=== PATIENT | male | born 1945 | race Caucasian/White ===

== ENCOUNTER 2019-03-29 08:41 | Inpatient (IN) ==
[2019-03-29] MEDS ORDERED: PULMICORT INH ONE (09:13)
[2019-03-29] MEDS ORDERED: ALBUTEROL NEB INH ONE (09:13)
[2019-03-29] MEDS ORDERED: DUONEB (A & A) INH ONE (09:13)
--- NOTE | 2019-03-29 09:21 | PROVIDER DOCUMENTATION ---
HPI-Respiratory General - General Chief Complaint: Shortness of Breath Stated Complaint: SOB Time Seen by Provider: 03/29/19 09:03 Allergies/Adverse Reactions: Patient Allergies Allergy/AdvReac Type Severity Reaction Status Date / Time Iodine and Iodide Containing Allergy ANAPHYLAXIS Verified 03/29/19 09:18 Produc shellfish derived Allergy ANAPHYLAXIS Verified 03/29/19 09:18 Home Medications: Home Medication List Medication Instructions Recorded Confirmed Last Taken Type RX: ATORVAstatin [Lipitor] 40 mg PO QHS 04/12/17 03/29/19 06/28/17 21:00 History Morphine Sulfate [Morphine Sulfate 1 tab PO Q12H 03/29/19 03/29/19 Unknown History ER] RX: Gabapentin 1 cap PO TID 03/29/19 03/29/19 Unknown History RX: Hydrocortisone [Cortef] 2 tab PO DIRECTED 03/29/19 03/29/19 Unknown History RX: Levofloxacin 1 tab PO DAILY 03/29/19 03/29/19 Unknown History RX: Metoprolol [Lopressor] 0.5 tab PO DAILY 03/29/19 03/29/19 Unknown History RX: Prednisone 1 tab PO DIRECTED 03/29/19 03/29/19 Unknown History RX: Tamsulosin HCl 1 cap PO DAILY 03/29/19 03/29/19 Unknown History - History of Present Illness-Resp Nature of Presenting Problem: presents with incr SOB for sev weeks, chandana past 2-3 days. Has had hemoptysis for 2 weeks, has also increased for 2-3 days. THis am, even increasing his home O2 did not help. Normally has it at 2-5 liters. Denies fever. No CP, no palpitations. He has COPD, lung CA, is on chemo, scheduled for today, along with a head CT to look for brain mets. 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 denies: recent foreign travel Modifying Factors: worse with: exertion Similar Symptoms Previously?: No Recently seen or treated by another doctor?: Yes (his oncol knows about hemoptysis, but not that is worse, now has clots) Review of Systems - Adult - REVIEW OF SYSTEMS - ADULT Constitutional: reports: no symptoms reported Eyes: reports: no symptoms reported Ears, Nose, Mouth & Throat: reports: no symptoms reported Cardiovascular: reports: no symptoms reported Respiratory: reports: see HPI Gastrointestinal: reports: no symptoms reported Genitourinary: reports: no symptoms reported Musculoskeletal: reports: no symptoms reported Integumentary: reports: no symptoms reported Neurological: reports: no symptoms reported Psychiatric: reports: no symptoms reported Endocrine: reports: no symptoms reported Hematologic/Lymphatic: reports: no symptoms reported Allergic/Immunologic: reports: no symptoms reported Past History - Adult - PAST MEDICAL HISTORY-ADULT Review of Records: reports: Medications Reviewed Major Childhood Illnesses: reports: denies history Cardiovascular: reports: HTN, [place] Respiratory: reports: asthma, cancer (lung) - PRIOR SURGERIES/PROCEDURES Surgical/Procedure History: reports: cardiac stent (x5), other (cataract) - IMMUNIZATION STATUS Childhood Immunizations: See Nurse Assessment Flu Vaccine: See Nurse Assessment Physical Exam-General - PHYSICAL EXAM-ADULT Initial Vital Signs Reviewed: Yes - CONSTITUTIONAL General Appearance: alert, mild distress - EYES Eyes: PERRL/EOMI, pink conjunctivae - HEAD, EARS, NOSE, MOUTH & THROAT HENMT: normocephalic/atraumatic, moist mucous membranes, normal ENT inspection, pharynx normal - NECK Neck: full range of motion, supple - RESPIRATORY Respiratory: lungs clear, respiratory distress (mild), decreased breath sounds - CARDIOVASCULAR Cardiovascular: regular rate, rhythm, no gallop, no murmur - GASTROINTESTINAL (ABDOMEN) Abdominal Exam: non tender, soft - MUSCULOSKELETAL Back Exam: normal inspection, no CVA tenderness, no vertebral tenderness Extremity: normal range of motion, non-tender, pedal edema (4+ bilat LE edema) - SKIN Integumentary: normal color, normal turgor, warm/dry - NEUROLOGIC Neurologic: philosophy lecturer II-XII nml as tested, grossly normal, no motor/sensory deficits - PSYCHIATRIC Psych/Mental Status: normal mood/affect, normal thought content, normal thought process, oriented x 3 Progress - PLAN OF CARE/RESULTS Progress/Plan/Lab Results: Vital Signs - 8 hr 03/29/19 08:52 03/29/19 08:56 03/29/19 09:00 Temperature Pulse Rate 77 Respiratory Rate 20 Blood Pressure 173/83 O2 Sat by Pulse Oximetry 95 97 03/29/19 09:03 03/29/19 09:10 03/29/19 10:00 Temperature 97.6 F Pulse Rate 69 70 70 Respiratory Rate 20 16 14 Blood Pressure 173/83 173/83 O2 Sat by Pulse Oximetry 97 98 100 03/29/19 10:01 03/29/19 13:34 03/29/19 13:35 Temperature 98.1 F Pulse Rate 72 76 Respiratory Rate 24 20 Blood Pressure 173/86 O2 Sat by Pulse Oximetry 97 94 L 03/29/19 13:49 03/29/19 14:00 03/29/19 14:03 Temperature Pulse Rate 67 65 69 Respiratory Rate 21 16 16 Blood Pressure 168/93 163/77 O2 Sat by Pulse Oximetry 95 96 96 Laboratory Results - last 24 hr 03/29/19 03/29/19 03/29/19 09:53 09:53 09:53 WBC 21.77 H RBC 3.82 L Hgb 12.7 L Hct 40.4 L MCV 105.8 H MCH 33.2 H MCHC 31.4 L RDW Std Deviation 18.1 H Plt Count 120 L MPV 11.4 H Immature Gran % (Auto) 3.4 H Neut % (Auto) 82.2 H Lymph % (Auto) 5.6 L [place] % (Auto) 8.7 Eos % (Auto) 0.0 Baso % (Auto) 0.1 Immature Gran # (Auto) 0.74 H Neut # (Auto) 17.87 H Lymph # (Auto) 1.22 [place] # (Auto) 1.90 H Eos # (Auto) 0.01 Baso # (Auto) 0.03 PT 11.7 INR 0.80 PTT (Actin FS) 25.8 Sodium 140 Potassium 4.8 Chloride 94 L Carbon Dioxide 42 H Anion Gap 4 BUN 24 H Creatinine 1.1 Estimated GFR/1.73 m2 > 60 BUN/Creatinine Ratio 22 Glucose 123 H Calculated Osmolality 285 Calcium 9.4 Total Bilirubin 0.37 AST 56 H ALT 191 H Alkaline Phosphatase 141 H Nwg-L-Soegyvbaekt Pept Total Protein 6.3 Albumin 3.6 Globulin 2.7 Albumin/Globulin Ratio 1.3 03/29/19 09:53 WBC RBC Hgb Hct MCV MCH MCHC RDW Std Deviation Plt Count MPV Immature Gran % (Auto) Neut % (Auto) Lymph % (Auto) [place] % (Auto) Eos % (Auto) Baso % (Auto) Immature Gran # (Auto) Neut # (Auto) Lymph # (Auto) [place] # (Auto) Eos # (Auto) Baso # (Auto) PT INR PTT (Actin FS) Sodium Potassium Chloride Carbon Dioxide Anion Gap BUN Creatinine Estimated GFR/1.73 m2 BUN/Creatinine Ratio Glucose Calculated Osmolality Calcium Total Bilirubin AST ALT Alkaline Phosphatase [id number] Pept 7399 H Total Protein Albumin Globulin Albumin/Globulin Ratio Orders Category Date Time Status Take Temperature DIRECTED Care 03/29/19 12:33 Active CHEST-1 VIEW [RAD] Stat Exams 03/29/19 09:[address] HEAD W/O CONTRAST [CT] Stat Exams 03/29/19 12:47 Completed CBC WITH DIFF [HEME] Stat Lab 03/29/19 09:53 Completed COMPREHENSIVE METABOLIC PANEL [CHEM] Stat Lab 03/29/19 09:53 Completed PRO B-NATRIURETIC PEPTIDE Stat Lab 03/29/19 09:53 Completed PROTIME WITH INR [COAG] Stat Lab 03/29/19 09:53 Completed PTT [COAG] Stat Lab 03/29/19 09:53 Completed Albuterol 2.5MG/Ipratrop 0.5MG [Duoneb (A & A)] Med 03/29/19 09:13 Dis continued 3 ml INH NOW ONE Albuterol [Albuterol Neb] Med 03/29/19 09:13 Discontinued 5 mg INH NOW ONE Azithromycin [Zithromax] Med 03/29/19 12:50 Discontinued 500 mg PO NOW ONE Budesonide [Pulmicort] Med 03/29/19 09:13 Discontinued 0.5 mg INH NOW ONE CefTRIAXONE [Rocephin] 1 gm Med 03/29/19 12:50 Discontinued 0.9% Sodium Chloride Inj [Ns] 50 ml IV NOW Aerosol Treatments Routine Oth 03/29/19 09:14 Completed Aerosol Treatments Stat Oth 03/29/19 09:14 Completed EKG [EKG] Stat Ther 03/29/19 08:50 Draft Transfer/Admit Order [TRANSFER] Routine Transfer 03/29/19 14:52 Ordered Result Diagrams: 03/29/19 09:53 03/29/19 09:53 - XRAY 1 XRAY Study: Chest Impression: Abnormal (EXAM: CHEST-1 VIEW HISTORY: SOB TECHNIQUE: Single view COMPARISON: 07-22-18 FINDINGS: The lungs are well expanded. The heart is not enlarged. No change in the right port. The vessels are mildly distended. There are no infiltrates. No effusion identified. IMPRESSION: Mild pulmonary edema. Electronically signed by Josh Kenney 03/29/2019 9:29 AM 03/29/1929 Interpreting Physician: Josh Kenney MD Dictated Date/Time: 926 cc: Dmitri Mehta MD; Ez Dave) - CONSULTS/PCP/HOSPITALIST Notification #1 *Consult/PCP/Hospitalist*: Dr Webber, oncologist in [place] Time Discussed: 12:53 (WBC last week was 10. Last Lunesta was 2 weeks, was also placed on long steroid taper) #2 Consult: Dr Ng Time Discussed: 14:05 Consult Disposition: Will see in ED Departure - Departure Date of Disposition Decision: 03/29/19 Time of Disposition Decision: 14:10 DIAGNOSIS: Hemoptysis COPD (chronic obstructive pulmonary disease) Qualifiers: COPD type: unspecified COPD Qualified Code(s): J44.9 - Chronic obstructive pulmonary disease, unspecified Leukocytosis Qualifiers: Leukocytosis type: unspecified Qualified Code(s): D72.829 - Elevated white blood cell count, unspecified Lung cancer Qualifiers: Laterality: unspecified laterality Lung location: unspecified part of lung Qualified Code(s): C34.90 - Malignant neoplasm of unspecified part of unspecified bronchus or lung Disposition: ADMITTED INPATIENT 09 Certified Medical Emergency: Emergent Condition: Good - Critical Care Note This patient required my direct & personal management of CC.: No Attestation - Physician/ DANY Attestation Patient care was provided by Advanced Practice Provider:: No The physician spent face to face time with patient:: Yes Advanced Practice Provider documentation review:: Supervising physician onsite and consulted in the evaluation and care of this patient. The physician did have a face to face encounter with the patient.
--- NOTE | 2019-03-29 09:32 | Diag Imaging Result Doc PS360 ---
EXAM: CHEST-1 VIEW HISTORY: SOB TECHNIQUE: Single view COMPARISON: 07-22-18 FINDINGS: The lungs are well expanded. The heart is not enlarged. No change in the right port. The vessels are mildly distended. There are no infiltrates. No effusion identified. IMPRESSION: Mild pulmonary edema. Electronically signed by Josh Kenney 03/29/2019 9:29 AM
[2019-03-29 10:27] LABS: BASO# 0.03 X1000 (0.0-0.2); BASO% 0.1 % (0.0-0.8); EOS# 0.01 X1000 (0.0-0.7); HEMATOCRIT 40.4 % (42.0-52.0); HEMOGLOBIN 12.7 g/dL (14.0-18.0); IMM GRAN# 0.74 X1000 (0.0-0.04); IMM GRAN% 3.4 % (0.0-0.5); LYMPH# 1.22 X1000 (1.2-3.4); LYMPH% 5.6 % (20.5-51.1); MCH 33.2 PG (27-31); MCHC 31.4 g/dL (33-37); MCV 105.8 FL (81-99); MONO% 8.7 % (1.7-9.3); MPV 11.4 FL (7.4-10.4); NEUT# 17.87 X1000 (1.4-6.5); NEUT% 82.2 % (42.2-75.2); PLT 120 X1000 (130-400); RBC 3.82 XMIL (4.7-6.1); RDW 18.1 % (11.5-14.5); WBC 21.77 X1000 (4.8-10.8)
[2019-03-29 10:32] LABS: ESTIMATED GFR > 60
[2019-03-29 10:34] LABS: AGAP 4; ALB/GLOB RATIO 1.3; ALBUMIN 3.6 g/dL (3.5-5.0); ALKALINE PHOSPHATASE 141 U/L (32-122); BUN 24 mg/dL (8-22); CALCIUM 9.4 mg/dL (8.8-10.2); CHLORIDE 94 mmol/L (98-107); COSMO 285; CREATININE 1.1 mg/dL (0.7-1.2); GLUCOSE 123 mg/dL (70-104); GOT 56 U/L (10-34); GPT 191 U/L (10-44); POTASSIUM 4.8 mmol/L (3.5-5.1); SODIUM 140 mmol/L (136-145); TCO2 42 mmol/L (25-35); TOTAL BILIRUBIN 0.37 mg/dL (0.20-1.00); TOTAL PROTEIN 6.3 g/dL (6.3-8.3)
[2019-03-29 10:37] LABS: PROTIME 11.7 Seconds (11.0-16.0)
[2019-03-29 10:38] LABS: PTT 25.8 Seconds (22.3-41.8)
--- NOTE | 2019-03-29 10:50 | ED EKG INTERP ---
This chart was entered by Emani Allred Scribe, acting as scribe for Dmitri Mehta MD. EKG Interpretation - EKG Time of EKG reading by physician:: 08:54 EKG Read and Signed by:: Dmitri Mehta EKG Interpretation (*Must complete 3 of following elements*): Abnormal Rate: 73 Rhythm: sinsu rhythm with marked sinus arrhythmia [place]: normal QRS: other (possibke left atrial enlargement) [place] Interval: normal ST Wave: normal Comments: anteroseptal infarct, age undetermined Attestation - Physician/ DANY Attestation Patient care was provided by Advanced Practice Provider:: No The physician spent face to face time with patient:: Yes Advanced Practice Provider documentation review:: Supervising physician onsite and consulted in the evaluation and care of this patient. The physician did have a face to face encounter with the patient. This chart was documented by the indicated scribe, (Emani Allred Scribe) and accurately reflects the services I performed and decisions made by me, Dmitri Mehta MD, as attested by the provider's signature.
[2019-03-29 10:51] LABS: INR 0.8
[2019-03-29] MEDS ORDERED: ZITHROMAX PO ONE (12:50)
[2019-03-29] MEDS ORDERED: ROCEPHIN 1 GM in NS 50 ML IV ONE (12:50)
--- NOTE | 2019-03-29 13:42 | Diag Imaging Result Doc PS360 ---
EXAM: CT HEAD W/O CONTRAST INDICATION: LUNG CA TECHNIQUE: This exam was performed using automated exposure control, adjustment of mA or kV according to patient size, and/or use of iterative reconstruction technique. COMPARISON: MRI dated 07/22/2018. No prior CT head is available for comparison. FINDINGS: There is patchy low attenuation in the periventricular and subcortical white matter suggesting mild to moderate microangiopathy that appears to be approximately stable as compared to the prior MRI given differences in modalities. There is no definite acute infarct given the limited sensitivity of CT versus MRI. There is no discrete intracranial mass, mass effect, or intracranial hemorrhage. There are several stable small mucus retention cysts involving the maxillary sinuses. Surrounding soft tissues and bony structures are essentially unremarkable, otherwise. IMPRESSION: Mild to moderate chronic appearing white matter changes that appear stable. No definite acute intracranial pathology by CT. Electronically signed by Yosi Cuadra 03/29/2019 1:40 PM
--- NOTE | 2019-03-29 14:04 | EKG Report ---
Test Performed on : 03/29/2019 08:54:47 AM Test Reason : SOB Blood Pressure : / mmHG Vent. Rate : 073 BPM Atrial Rate : 073 BPM P-R Int : 142 ms QRS Dur : 076 ms QT Int : 354 ms P-R-T Axes : 076 044 073 degrees QTc Int : 389 ms Sinus rhythm. with marked sinus arrhythmia. Possible Left atrial enlargement Anteroseptal infarct , age undetermined Abnormal ECG No previous ECGs available Unconfirmed Result
--- NOTE | 2019-03-29 15:59 | HISTORY AND PHYSICAL ---
PRIMARY CARE PHYSICIAN: Dr. Ez Dave in [place], [place]. He also sees Dr. Webber at [facility] for his cancer. CHIEF COMPLAINT: Worsening shortness of breath over the last 2 to 3 days with oxygen not helping and also noted some hemoptysis that began today. HISTORY OF PRESENTING ILLNESS: This is a 73-year-old male who is sitting on the side of the bed, presents to [facility] ER with increased shortness of breath that he says has been present for the past several weeks, but worse over the last 2 to 3 days. He states he has had hemoptysis. His last chemo treatment was noted 2 weeks ago, and was actually scheduled for treatment today along with a CT of the head to look for brain METS. He states his oxygen is normally 2 to 5 L, and that that was not relieving his shortness of breath. Workup in the emergency room showed a white blood cell count of 21.77, but it is noted that he has been on a prednisone taper that began on 03/17/2019. His liver enzymes were elevated with a AST of 56, ALT 191, alkaline phosphatase at 141. His chest x-ray showed some mild pulmonary edema. He is noted to have wheezing throughout entire lung lopez. He has shortness of breath that worsens with [address] of the head showed mild to moderate chronic appearing white matter changes that appeared stable. No definite acute intracranial pathology by CT. He is noted to have 3+ pitting edema to his bilateral lower extremities that he states has been present for about a week so he is being admitted to the medical unit for further evaluation and treatment. PAST MEDICAL HISTORY: COPD, lung cancer with last chemo treatment 2 weeks ago, and scheduled for another one today, but did not receive, hypertension and CA. PAST SURGICAL HISTORY: Heart stents x5 and cataracts. FAMILY HISTORY: Reviewed and noncontributory. SOCIAL HISTORY: Currently, he lives with a friend who is also his caregiver. He smokes a pack of cigarettes a day, and has done so for the past 40 years. Denies any alcohol or illicit drug use. ALLERGIES: Iodine and iodine containing products and shellfish. HOME MEDICATIONS: He takes Lipitor 40 mg p.o. at bedtime, gabapentin 300 mg p.o. t.i.d., hydrocortisone 10 mg 2 tablets in the morning and 1 tablet at bedtime. He had been on Levaquin 500 mg p.o. daily that will be held. Metoprolol 50 mg 1/2 tablet p.o. daily. Morphine extended release 15 mg 1 p.o. q.12 hours, prednisone taper that began on 03/17/2019 will be held, and tamsulosin 0.4 mg p.o. daily. LABORATORY DATA: White blood cell count of 21.77, hemoglobin 12.7, hematocrit 40.4, and platelets 120,000. PT and INR of 11.7 and 0.80. Sodium 140, potassium 4.8, chloride 94, CO2 42, BUN of 24, creatinine 1.1, glucose 123, AST of 56, ALT 191, alkaline phosphatase 141. Chest x-ray showed mild pulmonary edema. EKG showed normal sinus rhythm at 73. CT of the head showed mild to moderate chronic appearing white matter changes that appear stable. No definite acute intracranial pathology by CT. REVIEW OF SYSTEMS: He denied fever, chills, blurred vision, dizziness, or chest pain. He has had a nonproductive cough, shortness of breath, wheezing, bilateral lower extremity edema. Denied any abdominal pain, constipation, diarrhea, burning or hurting with urination. PHYSICAL EXAMINATION: GENERAL: On arrival, he had a temperature of 97.6 degrees, pulse 69, respirations 20, blood pressure 173/83 and saturating 97% on 4 L via nasal cannula. GENERAL: This is a 73-year-old male who is sitting on the side of the bed and answers questions appropriately, but minimally as he has worsening shortness of breath with 1 to 2 words. HEENT: Normocephalic, atraumatic. Normal ENT inspection. Oropharynx and nares are clear. EYES: Pupils are equal, round, and reactive to light and accommodation. Extraocular movements are intact. NECK: Normal inspection. Normal range of motion. LUNGS: Wheezing throughout entire lung lopez. Equal lung expansion. Chest wall movement noted. O2 via nasal cannula currently in use. HEART: Regular rate and rhythm. No murmurs, rubs, or gallops. He is noted to have 3+ pitting edema to bilateral lower extremities. ABDOMEN: Soft, nontender, and nondistended. Bowel sounds are present x4 quadrants. MUSCULOSKELETAL: He has 5/5 strength x4 extremities. Moves all extremities well. NEUROLOGICAL: The cranial nerves 2-12 appear grossly intact. ASSESSMENT: 1. Acute chronic obstructive pulmonary disease exacerbation. 2. Leukocytosis. 3. Elevated liver function tests. 4. Tobacco abuse. 5. Lung cancer with last treatment 2 weeks ago. PLAN: He will be admitted to the medical unit, placed on telemetry, O2 per protocol. Incentive spirometry. Healthy heart diet. Turn cough and deep breathe q.4 hours while awake. I will place on Rocephin 1 gram IV q.24, azithromycin 500 IV q.24, and placed on Solu-Medrol 80 mg IV q.8, and wean as he improves. DuoNeb q.4 hours. We are going to give him some Lasix 40 mg IV q.12. We will recheck a CBC and BMP in the morning. Discussed smoking cessation with this patient who verbalized understanding. I will place him on a nicotine patch 21 mg transdermally daily. Further orders after being seen by attending. Dictated by LIOR Schroeder for Minor Ng MD cc: LIOR Schroeder MD I agree with most components of history, physical, assessment and plan. I evaluated the patient at bedside. He is in mild distress with shortness of breath but doesn't appear to be using accessory muscles. He admits to smoking currently. Vitals detect he is afebrile. On physical exam, he has right sided port, end expiratory wheeze and bilateral pedal edema. I will admit him for COPD exacerbation, transaminits and will start him on steroids, antibiotics and bronchodilators. I will also consider ECHO. I counselled him about quiting smoking and he agreeed to it. CAITLIN
[2019-03-29] MEDS ORDERED: ZOFRAN IV PRN (16:35)
[2019-03-29] MEDS: DUONEB (A & A) INH SCH ×3 (17:03→23:40)
[2019-03-29] MEDS: CORTEF PO SCH (20:24)
[2019-03-29] MEDS: NEURONTIN PO SCH (20:24)
[2019-03-29] MEDS: SOLU-MEDROL IV SCH (20:25)
[2019-03-29] MEDS: NICODERM PATCH TD SCH (20:25)
[2019-03-29] MEDS: LASIX IV SCH (20:25)
[2019-03-29] MEDS: MS CONTIN PO SCH (20:35)
[2019-03-29] MEDS ORDERED: LIPITOR PO SCH (21:00)
[2019-03-30] MEDS: DUONEB (A & A) INH SCH ×6 (03:50→23:55)
[2019-03-30] MEDS: SOLU-MEDROL IV SCH ×3 (04:20→22:18)
[2019-03-30] MEDS: TYLENOL PO PRN ×2 (04:30→15:52)
[2019-03-30 06:53] LABS: BASO# 0.02 X1000 (0.0-0.2); BASO% 0.1 % (0.0-0.8); HEMATOCRIT 42.3 % (42.0-52.0); IMM GRAN# 0.32 X1000 (0.0-0.04); IMM GRAN% 2.2 % (0.0-0.5); LYMPH# 0.26 X1000 (1.2-3.4); LYMPH% 1.8 % (20.5-51.1); MCH 32.3 PG (27-31); MCHC 30.7 g/dL (33-37); MONO% 1.4 % (1.7-9.3); MPV 11.5 FL (7.4-10.4); NEUT# 13.74 X1000 (1.4-6.5); NEUT% 94.5 % (42.2-75.2); PLT 122 X1000 (130-400); RBC 4.03 XMIL (4.7-6.1); RDW 17.7 % (11.5-14.5); WBC 14.54 X1000 (4.8-10.8)
[2019-03-30 07:34] LABS: AGAP 9; BUN 26 mg/dL (8-22); CALCIUM 9.3 mg/dL (8.8-10.2); CHLORIDE 90 mmol/L (98-107); COSMO 293; CREATININE 1.1 mg/dL (0.7-1.2); ESTIMATED GFR > 60; GLUCOSE 187 mg/dL (70-104); POTASSIUM 4.4 mmol/L (3.5-5.1); SODIUM 142 mmol/L (136-145); TCO2 43 mmol/L (25-35)
[2019-03-30 07:38] LABS: LYMPHS 5 % (21-51); SEGS 95 % (42-75)
[2019-03-30] MEDS: CORTEF PO SCH ×2 (09:39→22:17)
[2019-03-30] MEDS: LOPRESSOR PO SCH (09:40)
[2019-03-30] MEDS: MS CONTIN PO SCH ×2 (09:40→22:17)
[2019-03-30] MEDS: FLOMAX PO SCH (09:40)
[2019-03-30] MEDS: NEURONTIN PO SCH ×3 (09:40→22:17)
[2019-03-30] MEDS: NICODERM PATCH TD SCH (09:40)
[2019-03-30] MEDS: LASIX IV SCH ×2 (09:40→22:18)
--- NOTE | 2019-03-30 14:23 | PROGRESS NOTE ---
DATE: 03/30/2019 SUBJECTIVE: This patient is feeling better, he is still complaining of shortness of breath. His liver enzymes upon admission were elevated as well as the pro BNP. He is responding really good to the treatment with Lasix, pulmonary edema at presentation as well as lower extremity edema especially on the left side. For now, we will continue with same management. I will decrease the dose of the steroids from 80 q.8 hours to 40 q.8 hours. He does have COPD and history of lung cancer. As per the patient, he already stopped smoking 2 days ago. He used to smoke at least 3/4 of a pack on a daily basis. OBJECTIVE: Vital Signs: Temperature 97.9 degrees, pulse 69, respiratory rate 20, blood pressure 144/85, and oxygen saturation 98 percent on 4 L of nasal cannula. HEENT: Head normocephalic. No trauma. PERRLA. Neck: Supple. No JVD. No masses. Central trachea. Chest: Decreased breath sounds globally with prolonged expiratory phase and inspiratory as well as expiratory wheezing. Coarse breath sounds at the bases with some crepitus. Abdomen: Soft, nontender, and nondistended. No hepatosplenomegaly. Protuberant. Extremities: Trace right lower extremity edema. 2+ left lower extremity edema. No clubbing. No cyanosis. Neurological: The patient is alert and oriented x3. No focal deficits. LABORATORY: WBC 14.5, hemoglobin 13, hematocrit 42.3, and platelets 122,000. Sodium 142, potassium 4.4, chloride 90, bicarbonate 43, BUN 26, creatinine 1.1, glucose 187, and calcium 9.3. ASSESSMENT AND PLAN: 1. Chronic obstructive pulmonary disease exacerbation. I will continue breathing treatment, steroids, antibiotics, and oxygen supplementation. He is on home O2, around 4 to 5 L. He does have a history also of lung cancer. He is still smoking, but he states that he will not do that again. He stopped smoking 2 days ago, and he used to smoke at least 3/4 of a pack a day. 2. Possible CHF with some exacerbation. I will order an echocardiogram since I do not have one. Also, [facility] and they do not have an echocardiogram either. Clinically, he has some pleural effusion, lower extremity edema, shortness of breath, and I do not see any jugular venous distention, but probably he has some diastolic dysfunction. I will wait for the results. 3. Leukocytosis likely secondary to chronic steroid use. There is a possibility of underlying bronchitis or pneumonia as well. 4. Elevated liver function tests. This is new for this patient. I called the [facility], and his LFTs have been within normal limits. Previously on our records, also his liver function has been fine. I am not quite sure if this is related to a drug reaction or hepatic congestion due to his possible CHF. I will stop the Lipitor for now since this is nephrotoxic. 5. Lung cancer with last treatment around 2 weeks ago. Aware. 6. Tobacco abuse. This patient has been highly advised against tobacco use. I will continue with daily cessation education. He is still smoking. Apparently, he stopped 2 days ago, and he used to smoke 3-1/2 packs a day. I will continue with daily cessation education. cc: Remi Xiong MD
[2019-03-30] MEDS: ROCEPHIN 1 GM in NS 50 ML IV SCH (15:01)
[2019-03-30] MEDS: ZITHROMAX 500 MG/NS 500 MG/250 ML IVPB IV SCH (15:47)
[2019-03-31] MEDS: DUONEB (A & A) INH SCH ×5 (03:15→19:40)
[2019-03-31 05:01] LABS: ALLEN TEST YES; BE 22.1 mmoll (-3.0-3.0); BLOOD TYPE ARTERIAL; METHB 0.9 % (0.0-1.5); O2(CT) 17.3 mL/dL (15.0-23.0); O2HB 91.4 % (95.0-99.0); PO2(98.6) 60 mmHg (60-100); SAMPLE BLOOD; SAO2 94.5 % (95.0-100.0); THB 13.5 g/dL (11.5-17.4); pH(98.6) 7.45 (7.35-7.45)
[2019-03-31 05:03] LABS: MODALITY CANNULA; PCO2(98.6) 73 mmHg (35-45)
[2019-03-31] MEDS: SOLU-MEDROL IV SCH ×3 (06:01→21:55)
[2019-03-31 07:31] LABS: BASO# 0.01 X1000 (0.0-0.2); HEMATOCRIT 38.2 % (42.0-52.0); IMM GRAN# 0.16 X1000 (0.0-0.04); IMM GRAN% 0.7 % (0.0-0.5); LYMPH# 0.73 X1000 (1.2-3.4); LYMPH% 3.3 % (20.5-51.1); MCHC 31.4 g/dL (33-37); MCV 101.9 FL (81-99); MONO# 0.75 X1000 (0.11-0.59); MONO% 3.4 % (1.7-9.3); MPV 11.5 FL (7.4-10.4); NEUT# 20.39 X1000 (1.4-6.5); NEUT% 92.6 % (42.2-75.2); PLT 112 X1000 (130-400); RBC 3.75 XMIL (4.7-6.1); RDW 17.6 % (11.5-14.5); WBC 22.04 X1000 (4.8-10.8)
[2019-03-31 07:57] LABS: ALB/GLOB RATIO 1.3; ALBUMIN 3.3 g/dL (3.5-5.0); CALCIUM 9.1 mg/dL (8.8-10.2); CREATININE 1.2 mg/dL (0.7-1.2); POTASSIUM 3.7 mmol/L (3.5-5.1); TOTAL BILIRUBIN 0.42 mg/dL (0.20-1.00); TOTAL PROTEIN 5.9 g/dL (6.3-8.3)
--- NOTE | 2019-03-31 08:02 | Diag Imaging Result Doc PS360 ---
CHEST-PORTABLE - 03/31/2019 INDICATION: dyspnea COMPARISON: 03/29/2019 FINDINGS: Stable right chest port. There is some minimal atelectasis at the lateral right costophrenic angle. Heart size is normal. IMPRESSION: Minimal atelectasis in the lateral right lung base. Electronically signed by Hansel Renee 03/31/2019 7:59 AM
[2019-03-31] MEDS: MS CONTIN PO SCH ×2 (08:51→21:56)
[2019-03-31] MEDS: LASIX IV SCH (08:52)
[2019-03-31 09:13] LABS: BANDS 2 % (0-1); LYMPHS 4 % (21-51); MONO 2 % (1-9); SEGS 92 % (42-75)
[2019-03-31] MEDS: NICODERM PATCH TD SCH (09:47)
[2019-03-31] MEDS: CORTEF PO SCH ×2 (09:47→21:57)
[2019-03-31] MEDS: NEURONTIN PO SCH ×3 (09:47→21:57)
[2019-03-31] MEDS: LOPRESSOR PO SCH (09:47)
[2019-03-31] MEDS: FLOMAX PO SCH (09:47)
--- NOTE | 2019-03-31 10:25 | ECHO REPORT ---
ORDER DATE: 03/30/2019 INTERPRETING PHYSICIAN: Dr. Carlos REQUESTING PHYSICIAN: Dr. Hui CLINICAL INDICATIONS: This is a 73-year-old male with CHF. M-MODE MEASUREMENTS: Right ventricle: cm. Left ventricle end diastole: 5.6 cm. Left ventricle end systole: 4.2 cm. Posterior wall: 1.1 cm. Interventricular septum: 1.0 cm. Left atrium: 4.4 cm. Aortic root: 2.9 cm. SUMMARY OF 2-DIMENSIONAL IMAGIN. The left ventricular chamber is dilated. There is significant impairment of the mid to apical anterior septal segment as well as the mid to apical interventricular septal segment. That would be consistent with a previous ischemic/infarction of the LAD territory. 2. The global ejection fraction is calculated at 45%. The study was difficult, and Optison was added to visualize endocardium. The opacification was adequate. Ejection fraction by computer tracing is calculated at 46%. 3. The aortic valve has 3 cusps. Color flow mapping is unremarkable. 4. The pulmonic valve is normal. Color flow mapping is unremarkable. 5. Tricuspid valve shows mild degree of regurgitation. 6. Pulmonary pressure is estimated at 61 mmHg. 7. Inferior vena cava was dilated. 8. The mitral valve opens normally. Color flow mapping is unremarkable 9. The pulse wave Doppler of mitral inflow shows reversal of the E and the A ratio. The ratio is 0.8. 10.Tissue Doppler of septal and lateral mitral annulus averages 5.5 cm. That would suggest impaired left ventricular relaxation. 11.The left atrium appears to be mildly enlarged. 12.There is no pericardial effusion, mass or thrombus. Clinical correlation recommended. cc: MD Remi Gee MD
--- NOTE | 2019-03-31 10:41 | Diag Imaging Result Doc PS360 ---
US ABDOMEN-COMPLETE - 03/31/2019 INDICATION: Elebated LFT COMPARISON: None FINDINGS: There are several shadowing stones in the gallbladder. Common bile duct measures 4 mm. The liver, pancreas, spleen, and both kidneys are normal. Aorta, IVC, and main portal vein are patent. Spleen size is 9 x 8.5 x 2.8 cm. IMPRESSION: Gallstones in the gallbladder. Electronically signed by Hansel Renee 03/31/2019 10:38 AM
--- NOTE | 2019-03-31 13:52 | HEMO/ONC CONSULTATION ---
DATE: 03/31/2019 REASON FOR CONSULTATION: Consultation requested by Hospitalist Service for lung cancer, patient known. HISTORY OF PRESENT ILLNESS: Mr. Santana is a 73-year-old male who is known to us as we are currently treating him for metastatic recurrent lung cancer. He has been on Gemzar therapy since April of 2018 with good response. His last treatment was on 03/01/2019. He has most recently been having issues causing us to hold his treatment. Most recently he has been having increasing weakness as well as dyspnea on exertion and a productive cough. He has also required 24-hour continuous oxygen, which he did not need previously. He did have a CT of the chest, abdomen, and pelvis with contrast on 03/09/2019, which showed him to have small airway inflammatory process which was believed to be possibly related to pneumonitis associated with his treatment. We have placed him on steroids on 2 separate occasions. One time with a Medrol dose pack and the next time with a prednisone taper. The patient also received antibiotics as an outpatient. Of note, that CT of the chest, abdomen and pelvis with contrast on 03/09/2019 showed stable disease in regards to his lung cancer. He did contacted our office on 03/29/2019 complaining of hemoptysis with dyspnea and lethargy. He was advised to go to the emergency department for evaluation immediately. In the ER he was found to be hypoxic as well as found to have elevated LFTs. He had a chest x-ray that showed mild pulmonary edema, and a head CT which was negative. He also has had bilateral lower extremity pitting edema. He has been admitted for further evaluation and treatment. PAST MEDICAL HISTORY: 1. COPD. 2. Recurrent metastatic lung cancer currently on Gemzar chemotherapy since April of 2018 with good response, last treatment was actually 4 weeks ago. 3. Hypertension. 4. AK. 5. Tobacco abuse, current. PAST SURGICAL HISTORY: 1. Cardiac stent placement x5. 2. Bilateral cataracts removal. 3. Hernia repair in the 1970s. SOCIAL HISTORY: The patient is , but he does live with his girlfriend currently. He reports stopping smoking back on 03/05/2017, but has recently restarted smoking cigarettes. He has close to a 75 pack-year history. He does drink alcohol on occasion. He denies any illicit drug use. FAMILY HISTORY: Mother at the age of 84 from a stroke. Father at the age of 44 from Hodgkin's lymphoma. REVIEW OF SYSTEMS: As per the HPI. All else is negative or noncontributory. A 12 point review of systems is completed. PHYSICAL EXAMINATION: Vital Signs: Temperature 97.9 degrees, heart rate 92, respirations 18, blood pressure 142/87, O2 saturation is 94% on 4 L nasal cannula. General: This is a male sitting up in the hospital bed with his significant other at bedside. He is in good spirits. Reports that he is feeling better than upon admission. HEENT: Head: Normocephalic and atraumatic. Eyes: Pupils are equal, round and reactive. Ears, nose, throat, neck, mouth and mucosa is normal. Cardiovascular: S1 and S2 heard. No murmurs, gallops or rubs appreciated. Respiratory: Wheezing and scattered rhonchi noted bilaterally. Coarse breath sounds. Gastrointestinal: Abdomen is soft with positive bowel sounds. Musculoskeletal: No bony abnormalities. Extremities: Pitting edema noted. Neurologic: The patient is alert and oriented. He has no focal motor deficits noted at this time. LABORATORIES AND STUDIES: White blood cells 22.04, hemoglobin 12.0, hematocrit 38.2, platelet count 112,000. Sodium 142, potassium 3.7, chloride 88, CO2 of 45, BUN 30, creatinine 1.2, glucose 199, AST 24, ALT 104, alkaline phosphatase 131, proBNP 3386. Chest x-ray for today shows some atelectasis at the lateral right lung base. ASSESSMENT AND PLAN: 1. Recurrent metastatic lung cancer. The patient has been on Gemzar chemotherapy for almost 1 year with good response. He recently had scans on 03/09/2019, which showed stable disease. He has been having increasing difficulties with dyspnea and hypoxia. First believed to be related to pneumonitis, but he is presenting more with chronic obstructive pulmonary disease exacerbation. 2. Hemoptysis. This has improved greatly. The patient is now on a regimen for chronic obstructive pulmonary disease exacerbation with improvement of the symptoms. 3. Chronic obstructive pulmonary disease exacerbation. Continue intravenous antibiotics as well as pulmonary toilet and Solu-Medrol intravenous. Continue breathing treatments. 4. Adrenal insufficiency. The patient is on hydrocortisone daily. Continue at current dosing. 5. Pain. Well managed with MS Contin and [place] for breakthrough. Continue. 6. Elevated liver enzymes. The patient's liver enzymes have been normal as an outpatient. This elevation is new. Not felt to be related to his chemotherapy. He did receive chemotherapy last time 4 weeks ago, and he has also been on the same medication for almost a year without any issues with his liver. The most recent CT of the chest, abdomen and pelvis done on 03/09/2019 showed no liver abnormalities. Continue workup per the primary team. 7. Possible congestive heart failure exacerbation. Continue workup per the primary team. Thank you for consulting us and allowing us to participate in Mr. Santana's care. Dictated by REGLA Paige for Gianni Escalante MD cc: Gianni Escalante MD
--- NOTE | 2019-03-31 14:07 | PROGRESS NOTE ---
DATE: 03/31/2019 SUBJECTIVE: The patient is feeling better. LFTs are trending down, pCO2 still high though. He is still wheezing bilaterally. We did an echocardiogram that showed a left ventricular chamber dilation, with a global ejection fraction of 45%, and a pulmonary pressure estimated at 61 mm Hg. So, probably this patient has both systolic and diastolic dysfunction, pulmonary hypertension. I will continue with Lasix for now since this patient is getting better. OBJECTIVE: Vital Signs: Temperature 97.7 degrees, pulse 80, respiratory rate 15, blood pressure 166/73, oxygen saturation 99 on 4.5 L of nasal cannula. HEENT: Head normocephalic. No trauma. PERRLA. Neck: Supple. No JVD. No masses. Central trachea. Chest: Decreased breath sounds globally with prolonged expiratory phase and inspiratory as well as expiratory wheezing. Coarse breath sounds at the bases with some crepitus. Abdomen: Soft, nontender, nondistended. No hepatosplenomegaly. Extremities: Trace right lower extremity edema and 1 to 2+ left lower extremity edema. No clubbing. No cyanosis. Neurological: The patient is alert and oriented x3. No focal deficits. LABORATORY DATA: WBC 22, hemoglobin 12, hematocrit 38.2, platelets 112,000. PCO2 73. Sodium 142, potassium 3.7, chloride 88, bicarbonate 45, BUN 30, creatinine 1.2, glucose 199, calcium 9.1, AST 24, ALT 104, alkaline phosphatase 131, albumin 3.3. ASSESSMENT AND PLAN: 1. Chronic obstructive pulmonary disease exacerbation. Continue breathing treatment, steroids, antibiotics, and oxygen supplementation. He is on home O2 around 4 to 5 L. He does have a history of lung cancer. He is still smoking, but apparently he is not willing to do it again. He stop smoking 3 days ago and he used to smoke at least 3/4 of a pack a day. 2. Congestive heart failure exacerbation. Echocardiogram showed a pulmonary arterial pressure elevated, low ejection fraction at 45%, so this likely represents a systolic and diastolic dysfunction. I will continue with Lasix, beta blockers, and probably I will put him on a little dose of IVY inhibitors in the future. 3. Leukocytosis likely secondary to steroid use, but there is also a possibility of underlying bronchitis or pneumonia as well. 4. Elevated liver function tests. This is new for the patient. [facility] and his LFTs were within normal limits before and also previously on our records his liver function has been fine. I am not sure if this is related to drug interaction or hepatic congestion due to congestive heart failure, but the are getting better. I stopped already the Lipitor since this is hepatotoxic. 5. Lung cancer with last treatment around 2 weeks ago, aware. 6. Tobacco abuse. This patient has been highly advised against tobacco use. I will continue with daily cessation education. He is still smoking at least 3/4 of a pack a day. cc: Remi Xiong MD
[2019-03-31] MEDS: ROCEPHIN 1 GM in NS 50 ML IV SCH (16:35)
[2019-03-31] MEDS: ZITHROMAX 500 MG/NS 500 MG/250 ML IVPB IV SCH ×2 (17:44→18:08)
[2019-03-31] MEDS: NORVASC PO SCH (21:57)
[2019-04-01] MEDS: DUONEB (A & A) INH SCH ×6 (03:40→20:15)
[2019-04-01] MEDS: SOLU-MEDROL IV SCH (04:02)
[2019-04-01 05:15] LABS: ALLEN TEST YES; BE 21.1 mmoll (-3.0-3.0); BLOOD TYPE ARTERIAL; HCO3-(ACT) 41.3 mmoll (20.0-26.0); METHB 1.1 % (0.0-1.5); O2(CT) 17.6 mL/dL (15.0-23.0); O2HB 94.7 % (95.0-99.0); PO2(98.6) 81 mmHg (60-100); SAMPLE BLOOD; SAO2 97.9 % (95.0-100.0); THB 13.2 g/dL (11.5-17.4); pH(98.6) 7.47 (7.35-7.45)
[2019-04-01 05:19] LABS: MODALITY CANNULA; PCO2(98.6) 67 mmHg (35-45)
[2019-04-01 06:51] LABS: BASO# 0.01 X1000 (0.0-0.2); HEMATOCRIT 38.2 % (42.0-52.0); HEMOGLOBIN 12.6 g/dL (14.0-18.0); IMM GRAN# 0.19 X1000 (0.0-0.04); IMM GRAN% 0.7 % (0.0-0.5); LYMPH# 0.69 X1000 (1.2-3.4); LYMPH% 2.7 % (20.5-51.1); MONO# 0.71 X1000 (0.11-0.59); MONO% 2.8 % (1.7-9.3); MPV 11.7 FL (7.4-10.4); NEUT# 23.76 X1000 (1.4-6.5); NEUT% 93.8 % (42.2-75.2); PLT 106 X1000 (130-400); RBC 3.82 XMIL (4.7-6.1); RDW 17.8 % (11.5-14.5); WBC 25.36 X1000 (4.8-10.8)
[2019-04-01 07:19] LABS: ALB/GLOB RATIO 1.5; ALBUMIN 3.5 g/dL (3.5-5.0); CALCIUM 9.3 mg/dL (8.8-10.2); CREATININE 1.2 mg/dL (0.7-1.2); POTASSIUM 4.8 mmol/L (3.5-5.1); TOTAL BILIRUBIN 0.49 mg/dL (0.20-1.00); TOTAL PROTEIN 5.9 g/dL (6.3-8.3)
[2019-04-01 08:33] LABS: BANDS 2 % (0-1); LYMPHS 6 % (21-51); SEGS 92 % (42-75)
[2019-04-01] MEDS: NORVASC PO SCH ×2 (09:58→21:26)
[2019-04-01] MEDS: CORTEF PO SCH ×2 (09:58→21:27)
[2019-04-01] MEDS: NEURONTIN PO SCH ×3 (09:58→21:27)
[2019-04-01] MEDS: NICODERM PATCH TD SCH (09:58)
[2019-04-01] MEDS: LOPRESSOR PO SCH (09:58)
[2019-04-01] MEDS: FLOMAX PO SCH (09:58)
[2019-04-01] MEDS: LASIX IV SCH (09:58)
[2019-04-01] MEDS: MS CONTIN PO SCH ×2 (09:59→21:26)
[2019-04-01] MEDS: ROCEPHIN 1 GM in NS 50 ML IV SCH (14:47)
[2019-04-01] MEDS: ZITHROMAX 500 MG/NS 500 MG/250 ML IVPB IV SCH (15:20)
--- NOTE | 2019-04-01 18:46 | PROGRESS NOTE ---
DATE: 04/01/2019 SUBJECTIVE: The patient seems to be feeling better. Today he has been coughing more compared with the previous days, and he has been having more phlegm coming out. His white blood cells have increased from 22 to 25, and I believe it is mostly related to the steroids, which I have decreased already. Blood sugar is also slightly elevated today above 200, but hopefully tomorrow will be better. LFTs are trending down actually. AST and alkaline phosphatase are normal. ALT is slightly elevated at 80. Kidney function remains at baseline. OBJECTIVE: Vital Signs: Temperature 97.8 degrees, pulse 79, respiratory rate 20, blood pressure 138/75, oxygen saturation 96% on 4 L of nasal cannula. HEENT: Head normocephalic ,no trauma. PERRLA. Neck: Supple. No JVD. No mass. Central trachea. Chest: Decreased breath sounds globally with prolonged expiratory phase and expiratory wheezing. Coarse breath sounds at the bases with some crepitus. Abdomen: Soft, nontender, nondistended. No hepatosplenomegaly. Extremities: With 1 to 2+ lower extremity edema. No clubbing, no cyanosis. Neurological: The patient is alert and oriented x3. No focal neurological deficits. LABORATORY: WBC 25.3, hemoglobin 12.6, hematocrit 38.2, platelets 106. His pCO2 is 67. Sodium 142, potassium 4.8, chloride 89, bicarbonate 45, BUN 33, creatinine 1.2, glucose 214. Calcium 9.3, AST 18, ALT 80, alkaline phosphatase 121. ASSESSMENT AND PLAN: 1. Chronic obstructive pulmonary disease exacerbation with probable bronchitis, I will continue breathing treatments. I will decrease the for the frequency of the steroids, and hopefully tomorrow we can switch it to p.o. He is on home oxygen, around 4 to 5 L. He does have a history of lung cancer. He was still smoking, but apparently he is not willing to do it again. He stopped smoking 4 days ago, but he used to smoke 3/4 of a pack a day. 2. Likely acute bronchitis. Continue with antibiotics. 3. Lung cancer, aware. Hematology/oncology on board. 4. Congestive heart failure exacerbation. Echocardiogram showed a an increased pulmonary arterial pressure and low ejection fraction as well at 45%, so I will continue with Lasix, beta blockers and probably we need to start this patient on IVY inhibitors in the near future. 5. Leukocytosis, likely secondary to steroid use and underlying bronchitis and/or pneumonia. 6. Elevated liver function tests. This is new for the patient, probably due to hepatic congestion. This is trending down. AST and alkaline phosphatase are normal, and the ALT is much better. Pending hepatitis panel. Liver ultrasound did not show any liver problems except for gallstones. 7. Tobacco abuse. This patient has been highly advised against tobacco use. I will continue with daily cessation education. cc: Remi Xiong MD
[2019-04-02] MEDS: DUONEB (A & A) INH SCH ×7 (03:45→23:35)
[2019-04-02 04:46] LABS: ALLEN TEST YES; BLOOD TYPE ARTERIAL; HCO3-(ACT) 41.3 mmoll (20.0-26.0); PO2(98.6) 88 mmHg (60-100); SAMPLE BLOOD; pH(98.6) 7.46 (7.35-7.45)
[2019-04-02 04:59] LABS: MODALITY CANNULA; PCO2(98.6) 69 mmHg (35-45)
[2019-04-02 06:40] LABS: BASO# 0.02 X1000 (0.0-0.2); BASO% 0.1 % (0.0-0.8); HEMATOCRIT 38.2 % (42.0-52.0); HEMOGLOBIN 12.4 g/dL (14.0-18.0); IMM GRAN# 0.31 X1000 (0.0-0.04); IMM GRAN% 1.3 % (0.0-0.5); LYMPH# 2.17 X1000 (1.2-3.4); LYMPH% 9.2 % (20.5-51.1); MCH 32.5 PG (27-31); MCHC 32.5 g/dL (33-37); MCV 100.3 FL (81-99); MONO# 1.47 X1000 (0.11-0.59); MONO% 6.2 % (1.7-9.3); MPV 10.9 FL (7.4-10.4); NEUT% 83.2 % (42.2-75.2); PLT 106 X1000 (130-400); RBC 3.81 XMIL (4.7-6.1); RDW 17.8 % (11.5-14.5); WBC 23.57 X1000 (4.8-10.8)
[2019-04-02 07:10] LABS: LYMPHS 4 % (21-51); MONO 2 % (1-9); SEGS 94 % (42-75)
[2019-04-02 07:25] LABS: ALB/GLOB RATIO 1.4; ALBUMIN 3.4 g/dL (3.5-5.0); CALCIUM 9.2 mg/dL (8.8-10.2); CREATININE 1.2 mg/dL (0.7-1.2); POTASSIUM 3.8 mmol/L (3.5-5.1); TOTAL BILIRUBIN 0.49 mg/dL (0.20-1.00); TOTAL PROTEIN 5.8 g/dL (6.3-8.3)
[2019-04-02] MEDS: LOPRESSOR PO SCH (08:31)
[2019-04-02] MEDS: NORVASC PO SCH ×2 (08:31→21:16)
[2019-04-02] MEDS: NICODERM PATCH TD SCH (08:31)
[2019-04-02] MEDS: LASIX IV SCH (08:31)
[2019-04-02] MEDS: NEURONTIN PO SCH ×3 (08:31→21:16)
[2019-04-02] MEDS: FLOMAX PO SCH (08:32)
[2019-04-02] MEDS: CORTEF PO SCH ×2 (08:32→21:15)
[2019-04-02] MEDS: MS CONTIN PO SCH ×2 (08:32→21:24)
[2019-04-02] MEDS: LASIX PO SCH (08:32)
[2019-04-02] MEDS ORDERED: SOLU-MEDROL IV SCH (09:00)
--- NOTE | 2019-04-02 13:06 | PROGRESS NOTE ---
DATE: 04/02/2019 INTERVAL HISTORY: The patient's dyspnea much improved. Saturating well on his home 4 to 5 L of oxygen. Afebrile. No complaints. No acute events overnight. REVIEW OF SYSTEMS: A 12-point review of systems negative except as per Interval History. LABORATORIES: WBC 23.7, hemoglobin 12.4, hematocrit 38.2, platelets 106. ABG with pH 7.46, pCO2 of 69, PO2 of 88 on 4 L by nasal cannula. Sodium 140, potassium 3.8, bicarbonate 44, BUN 35, creatinine 1.2, glucose 169. VITALS: Temperature maximum 98.3 degrees, pulse 76, respirations 20, blood pressure 138/93, O2 saturation 96% on 4 L by nasal cannula. PHYSICAL EXAMINATION: General: No acute distress. Vitals: As above. HEENT: Normocephalic, atraumatic. Moist mucous membranes. Neck: No cervical adenopathy. Cardiovascular: Regular rate and rhythm with no murmurs, rubs, or gallops. Pulmonary: Breath sounds decreased throughout. Faint end-expiratory wheeze noted. Abdomen: Soft, nontender, nondistended. Bowel sounds positive. Extremities: Peripheral pulses intact. No clubbing, cyanosis, 1+ lower extremity pitting edema. Neurologic: Cranial nerves grossly intact. No focal deficits identified. Psychiatric: Normal mood and affect. Awake, alert, oriented x3. Skin: No new rashes or lesions identified. ASSESSMENT AND PLAN: 1. Chronic obstructive pulmonary disease exacerbation and bronchitis. The patient improving rapidly with nebulizers and steroids. We will transition to p.o. and monitor. 2. Acute on chronic diastolic congestive heart failure. The patient with recent echocardiogram with borderline ejection fraction of 45, but also with pulmonary tension. Likely diastolic congestive heart failure. Contributing to respiratory issues as above. Has responded well to diuresis. We will transition Lasix to p.o. today and monitor. 3. Lung cancer. Hematology/Oncology following. 4. Elevated liver function tests, possibly due to hepatic congestion. She has trended down to near normal. No need for further intervention at this time. 5. Tobacco abuse. Patient strongly counseled on cessation. DISPOSITION: Transitioning steroids and diuretics to p.o. today. If he continues to do well, may be able to discharge home tomorrow.
[2019-04-02] MEDS: ROCEPHIN 1 GM in NS 50 ML IV SCH (16:16)
[2019-04-02] MEDS: ZITHROMAX 500 MG/NS 500 MG/250 ML IVPB IV SCH (17:36)
[2019-04-03] MEDS: DUONEB (A & A) INH SCH ×3 (03:51→11:14)
[2019-04-03 08:21] LABS: HEPATITIS PROFILE ACUTE SEE COMMENTS
[2019-04-03] MEDS: LASIX PO SCH (08:35)
[2019-04-03] MEDS: CORTEF PO SCH (08:35)
[2019-04-03] MEDS: NORVASC PO SCH (08:35)
[2019-04-03] MEDS: NEURONTIN PO SCH (08:35)
[2019-04-03] MEDS: LOPRESSOR PO SCH (08:35)
[2019-04-03] MEDS: FLOMAX PO SCH (08:36)
[2019-04-03] MEDS: NICODERM PATCH TD SCH (08:36)
[2019-04-03 11:45] VITALS: BP 149/75
[2019-04-03] MEDS: MS CONTIN PO SCH (12:11)
[2019-04-03 12:52] LABS: CALCIUM 8.7 mg/dL (8.8-10.2); CREATININE 1.3 mg/dL (0.7-1.2); POTASSIUM 3.6 mmol/L (3.5-5.1)
--- NOTE | 2019-04-03 16:41 | HEMO/ONC PROGRESS NOTE ---
DATE: 04/03/2019 SUBJECTIVE: Mr. Santana is lying in his hospital bed. He reports that he is ready to go home. OBJECTIVE: Vital Signs: Temperature 98.2 degrees, heart rate 67, respirations 16, blood pressure 149/75, O2 saturation 95% on 2 L nasal cannula. LAB STUDIES: No new CBC for today. PHYSICAL EXAMINATION: Cardiovascular: CV S1, S2 heard. No murmurs, gallops, rubs appreciated. Respiratory: Chest is clear. Gastrointestinal: Abdomen is nondistended. Extremities: The patient now has trace edema bilateral lower extremities. ASSESSMENT AND PLAN: 1. Recurrent metastatic non-small cell lung cancer. Patient will continue with chemotherapy once he has been discharged. We will follow up with him in the next 1 to 2 weeks. Treatment currently on hold while he is in the hospital with acute issues. 2. Chronic obstructive pulmonary disease exacerbation. Continue current management per the primary team. 3. Congestive heart failure exacerbation. Continue per the primary team. Seems to be improving. 4. Elevated liver function tests. Believed to be secondary to hepatic congestion. Again liver function tests have pretty much normalized. DISPOSITION: From our standpoint, patient can be discharged home. We will follow up with him as an outpatient once he is discharged. Dictated by REGLA Paige for Marisol Webber MD cc: Marisol Webber MD I have seen and examined the patient and agree with the above note. It reflects my history, physical exam, assessment and plan. Marisol TUCKER
--- NOTE | 2019-04-03 18:57 | DISCHARGE SUMMARY ---
ADMISSION DATE: 03/29/2019 DISCHARGE DATE: 04/03/2019 ADMISSION DIAGNOSES: 1. Acute chronic obstructive pulmonary disease exacerbation. 2. Diastolic heart failure. 3. Leukocytosis. 4. Elevated liver function tests. 5. Nicotine dependence. 6. History of lung cancer. 7. Hypertension. 8. Coronary artery disease. DISCHARGE DIAGNOSES: 1. Acute chronic obstructive pulmonary disease exacerbation. 2. Diastolic heart failure. 3. Leukocytosis. 4. Elevated liver function tests. 5. Nicotine dependence. 6. History of lung cancer. 7. Hypertension. 8. Coronary artery disease. CONSULTATIONS: Hematology/Oncology with Dr. Escalante. DIAGNOSTIC PROCEDURES AND FINDINGS: EKG 03/29/2019 sinus rhythm with PACs. Chest x-ray 03/29/[address] edema[address] Head CT 03/29/2019 mild chronic changes, nothing acute. Echocardiogram 03/30/2019 EF 45%, left ventricular chamber is dilated, significant impairment of the mid to apical anterior septal segment as well as mid to apical interventricular septal segment. Chest x- ray 03/31/2019 minimal atelectasis in the lateral right lung base. Abdominal ultrasound 03/31/2019 gallstones in the gallbladder. HOSPITAL COURSE: Mr. Santana is a 73-year-old male who presented with dyspnea x3 days prior to arrival to the ER. He normally uses 2 to 5 L of oxygen at home but this did not improve his symptoms. He does complain of chronic lower extremity edema but he did not have any fever. Workup in the ER revealed mild pulmonary edema on chest x-ray. He had leukocytosis [place]BNP [place] 7399. His last treatment with chemotherapy was two weeks prior to admission. We admitted him and diuresed him. We added breathing treatments, pulmonary toilet, and IV steroids. We did check an echocardiogram which revealed borderline low ejection fraction at 45%. We consulted Hematology/Oncology who did not have any urgent recommendations and with time and medications the patient's symptoms improved to the point where we felt that he is now stable for discharge to home. DISCHARGE MEDICATIONS: 1. Lipitor 40 mg p.o. at bedtime. 2. Neurontin 300 mg p.o. t.i.d. 3. Lopressor 25 mg daily. 4. Morphine sulfate ER one tablet every 12 hours. 5. Flomax 0.4 mg daily. 6. Cortef 20 mg as directed. 7. Nicotine patch 21 mg daily. 8. Norvasc 5 mg b.i.d. 9. Lasix 40 mg daily. 10. Levaquin 750 mg p.o. daily for seven days. DISCHARGE DIET: Heart healthy. DISCHARGE ACTIVITY: Resume activity as tolerated. DISPOSITION AND OTHER DISCHARGE INSTRUCTIONS: The patient was discharged home to self-care. He is to follow up with Dr. Escalante and his PCP, Ez Dave within the next one to two weeks, sooner if needed. He is to continue all antibiotics until completion. We have discussed with him at length the perils of smoking cigarettes, we have prescribed nicotine patch. He is to return to the ER or call 911 for worsening complaints or concerns. All questions answered. DISCHARGE TIME: Greater than 35 minutes. Dictated by LIOR Santillan for Roge Nassar MD cc: LIOR Santillan MD Thomas Montgomery Agree with above. the following is my own, face to face assessment. Patient with copd exacerbation. no pneumonia but possible bacterial bronchitis. underlying lung cancer. respiratory status now back to baseline. satting well on 4L O2 which he is on at home. still decreased air entry throughout but no further wheezing on exam. stable for discharge home to follow up with PCP and oncology. CAITLIN
== END 2019-04-03 14:17 | disposition home or self-care (01) | DRG 190 ==
LOC: SUPCPDRO → ED 08:41 → SUATTDRO 15:23 → 4N 15:23
PROVIDERS: ATTEND Internal Medicine
CPT/HCPCS: 70450; 71010; 71045; 76700; 80048; 80053; 80074; 82805; 83880; 85025; 85610; 85730; 93005; 93306; 94640; 94760; 94761; 94799; 96374; 99285; A9270; C8929; J0456; J0696; J1940; J2920; J2930; Q9957

== ENCOUNTER 2019-08-02 09:19 | Inpatient (IN) ==
[2019-08-02] MEDS ORDERED: ALBUTEROL NEB INH ONE (09:50)
[2019-08-02] MEDS ORDERED: SOLU-MEDROL IV ONE (09:50)
--- NOTE | 2019-08-02 09:52 | PROVIDER DOCUMENTATION ---
HPI-Respiratory General - General Chief Complaint: Shortness of Breath Stated Complaint: SOB Time Seen by Provider: 08/02/19 09:41 Source: patient, family Allergies/Adverse Reactions: Patient Allergies Allergy/AdvReac Type Severity Reaction Status Date / Time Iodine and Iodide Containing Allergy ANAPHYLAXIS Verified 03/29/19 09:18 Produc shellfish derived Allergy ANAPHYLAXIS Verified 03/29/19 09:18 Home Medications: Home Medication List Medication Instructions Recorded Confirmed Last Taken Type ATORVAstatin [Lipitor] 20 mg PO QHS 04/12/17 08/02/19 06/28/17 21:00 History Gabapentin 1 cap PO TID 03/29/19 08/02/19 Unknown History Hydrocortisone [Cortef] 2 tab PO DIRECTED 03/29/19 08/02/19 Unknown History Metoprolol [Lopressor] 0.5 tab PO DAILY 03/29/19 08/02/19 Unknown History Morphine Sulfate [Morphine Sulfate 1 tab PO Q12H 03/29/19 08/02/19 Unknown History ER] Tamsulosin HCl 1 cap PO DAILY 03/29/19 08/02/19 Unknown History Amlodipine [Norvasc] 5 mg PO BID #30 tab 04/03/19 Unknown Rx Furosemide [Lasix] 40 mg PO DAILY #30 tab 04/03/19 08/02/19 Unknown Rx Levofloxacin [Levaquin] 750 mg PO DAILY #7 tab 04/03/19 Unknown Rx Nicotine Patch [Nicoderm Patch] 21 mg TD DAILY patch.[id number] 04/03/19 Unknown Rx Aspirin [Aspirin EC] 81 mg PO DAILY 08/02/19 08/02/19 Unknown History Budesonide/Formoterol Fumarate 1 inh INH BID PRN 08/02/19 08/02/19 Unknown History [Symbicort 160-4.5 Mcg Inhaler] Cetirizine HCl [Zyrtec] 10 mg PO DAILY 08/02/19 08/02/19 Unknown History Dexamethasone 2 tab PO DIRECTED 08/02/19 08/02/19 Unknown History Hydrocodone/Acetaminophen 1 tab PO Q6H PRN 08/02/19 08/02/19 Unknown History [Hydrocodone-Acetamin 10-325 mg] Omeprazole 40 mg PO DAILY 08/02/19 08/02/19 Unknown History Spironolactone 25 mg PO DAILY 08/02/19 08/02/19 Unknown History - History of Present Illness-Resp Nature of Presenting Problem: 73yom presents to ED c/o cough, chest congestion, sputum production and wheezing x1 week. He denies fever/chills/N/V/hemoptysis/chest pain/back pain. Onset/Duration: reports: gradual, 1 week ago Timing: reports: still present Exposure: reports: unknown cause Cough Quality/Degree: reports: moderate, productive cough, sputum (thick white) Current Respiratory Medication Therapy: Initiated none Modifying Factors: improves with: coughing Associated Symptoms: reports: cough, wheezing Similar Symptoms Previously?: Yes (with bronchitis) Recently seen or treated by another doctor?: Yes (treated w Levaquin) Review of Systems - Adult - REVIEW OF SYSTEMS - ADULT Constitutional: reports: no symptoms reported Eyes: reports: no symptoms reported Ears, Nose, Mouth & Throat: reports: no symptoms reported Cardiovascular: reports: no symptoms reported Respiratory: reports: see HPI, cough, wheezing Gastrointestinal: reports: no symptoms reported Genitourinary: reports: no symptoms reported Musculoskeletal: reports: no symptoms reported Integumentary: reports: no symptoms reported Neurological: reports: no symptoms reported Psychiatric: reports: no symptoms reported Endocrine: reports: no symptoms reported Hematologic/Lymphatic: reports: no symptoms reported Allergic/Immunologic: reports: no symptoms reported All Other Systems: Reviewed and Negative Past History - Adult - PAST MEDICAL HISTORY-ADULT Review of Records: reports: Old Records Reviewed, Nursing Assessment Review, Medications Reviewed, Social history reviewed & non-contributory. Major Childhood Illnesses: reports: denies history Cardiovascular: reports: HTN, [facility] Respiratory: reports: asthma, cancer (lung) - PRIOR SURGERIES/PROCEDURES Surgical/Procedure History: reports: cardiac stent (x5), other (cataract) - IMMUNIZATION STATUS Childhood Immunizations: See Nurse Assessment Flu Vaccine: See Nurse Assessment - SOCIAL HISTORY Smoking: quit greater than 1 year Living Situation: family Physical Exam-General - PHYSICAL EXAM-ADULT Initial Vital Signs Reviewed: Yes - CONSTITUTIONAL General Appearance: appears well, alert, no apparent distress - EYES Eyes: PERRL/EOMI, pink conjunctivae - HEAD, EARS, NOSE, MOUTH & THROAT HENMT: normocephalic/atraumatic, moist mucous membranes, normal ENT inspection, TMs normal, pharynx normal - NECK Neck: non-tender, full range of motion, supple, normal inspection - RESPIRATORY Respiratory: chest non-tender, lungs clear, no pleuratic chest pain, no respiratory distress, no accessory muscle use, wheezing (scattered bilateral) - CARDIOVASCULAR Cardiovascular: normal peripheral pulses, regular rate, rhythm, no edema, no gallop, no JVD - GASTROINTESTINAL (ABDOMEN) Abdominal Exam: normal bowel sounds, non tender, soft, no organomegaly - LYMPHATIC Lymphatic: no adenopathy - MUSCULOSKELETAL Back Exam: normal inspection, no CVA tenderness, no vertebral tenderness Extremity: normal range of motion, non-tender, normal gait, normal inspection - SKIN Integumentary: normal color, normal turgor, warm/dry - NEUROLOGIC Neurologic: car shagger II-XII nml as tested, grossly normal, no motor/sensory deficits - PSYCHIATRIC Psych/Mental Status: normal mood/affect, normal thought content, normal thought process, oriented x 3 Progress - PLAN OF CARE/RESULTS Progress/Plan/Lab Results: Vital Signs - 8 hr 08/02/19 09:26 08/02/19 10:17 Temperature 97.7 F Pulse Rate 92 H 85 Respiratory Rate 20 28 H Blood Pressure 112/72 O2 Sat by Pulse Oximetry 95 91 L Laboratory Results - last 24 hr 08/02/19 08/02/19 08/02/19 10:03 10:03 10:03 WBC 23.82 H RBC 2.99 L Hgb 9.7 L Hct 30.2 L MCV 101.0 H MCH 32.4 H MCHC 32.1 L RDW Std Deviation 17.9 H Plt Count 113 L MPV 11.4 H Immature Gran % (Auto) 1.3 H Neut % (Auto) 84.9 H Lymph % (Auto) 5.7 L Gulf % (Auto) 7.6 Eos % (Auto) 0.2 Baso % (Auto) 0.3 Immature Gran # (Auto) 0.31 H Neut # (Auto) 20.22 H Lymph # (Auto) 1.36 Gulf # (Auto) 1.80 H Eos # (Auto) 0.05 Baso # (Auto) 0.08 Segmented Neutrophils 81 H Band Neutrophils 9 H Lymphocytes 5 L Monocytes 4 Myelocytes 1.0 Sodium 144 Potassium 3.6 Chloride 105 Carbon Dioxide 25 Anion Gap 14 BUN 23 H Creatinine 1.4 H Estimated GFR/1.73 m2 50 BUN/Creatinine Ratio 16 Glucose 121 H Calculated Osmolality 292 Calcium 8.3 L Total Bilirubin 0.79 AST 17 ALT 11 Alkaline Phosphatase 115 Troponin T Paj-Y-Iorgbliwgfs Pept 3983 H Total Protein 5.1 L Albumin 3.0 L Globulin 2.1 Albumin/Globulin Ratio 1.4 Plasma Lactate 08/02/19 08/02/19 10:03 10:03 WBC RBC Hgb Hct MCV MCH MCHC RDW Std Deviation Plt Count MPV Immature Gran % (Auto) Neut % (Auto) Lymph % (Auto) Gulf % (Auto) Eos % (Auto) Baso % (Auto) Immature Gran # (Auto) Neut # (Auto) Lymph # (Auto) Gulf # (Auto) Eos # (Auto) Baso # (Auto) Segmented Neutrophils Band Neutrophils Lymphocytes Monocytes Myelocytes Sodium Potassium Chloride Carbon Dioxide Anion Gap BUN Creatinine Estimated GFR/1.73 m2 BUN/Creatinine Ratio Glucose Calculated Osmolality Calcium Total Bilirubin AST ALT Alkaline Phosphatase Troponin T < 0.010 [id number] Pept Total Protein Albumin Globulin Albumin/Globulin Ratio Plasma Lactate 1.6 Orders Category Date Time Status IV [Saline Loc] NOW Care 08/02/19 09:41 Active CHEST-1 VIEW [RAD] Stat Exams 08/02/19 09:41 Completed BLOOD CULTURE [BLDCUL] Stat Lab 08/02/19 10:40 Received CBC WITH DIFF [HEME] Stat Lab 08/02/19 10:03 Completed COMPREHENSIVE METABOLIC PANEL [CHEM] Stat Lab 08/02/19 10:03 Completed LACTATE, PLASMA [CHEM] Stat Lab 08/02/19 10:03 Completed PRO B-NATRIURETIC PEPTIDE Stat Lab 08/02/19 10:03 Completed TROPONIN T Stat Lab 08/02/19 10:03 Completed Albuterol [Albuterol Neb] Med 08/02/19 09:50 Discontinued 2.5 mg INH NOW ONE Azithromycin 500 mg/Ns [Zithromax 500 mg/Ns] Med 08/02/19 10:59 Discontinued 500 mg in 250 ml IV NOW CefTRIAXONE [Rocephin] 1 gm Med 08/02/19 10:59 Discontinued 0.9% Sodium Chloride Inj [Ns] 50 ml IV NOW Methylprednisolone Sod Succ [Solu-Medrol] Med 08/02/19 09:50 Discontinued 125 mg IV NOW ONE Aerosol Treatments Routine Oth 08/02/19 09:51 Completed Aerosol Treatments Stat Oth 08/02/19 09:51 Completed EKG [EKG] Stat Ther 08/02/19 09:41 Draft Result Diagrams: 08/02/19 10:03 08/02/19 10:03 - REASSESSMENT Reassessment #1 Time Reassessed: 11:00 (Reviewed CXR results, added Blood Cx and Lactic witgh Abx for pneumonia.) Reassessment #2 Time Reassessed: 11:50 (Discussed results and treatment plan for admit with pt and family, they agree. Lactic result pending. Pt with elevated BNP, discussed with Dr. Dunne, will hold IV fluid boluses until discuss with Admitting service.) Reassessment #3 Time Reassessed: 12:02 (Discussed pt with Keerthi, Hospitalist LIOR; she recommends admit for pneumonia. She is aware of Lactic result and does not recommend 30ml/kg IV fluid bolus. She states she will enter admit orders. Admit to Dr. Cao, inpatient tele.) - EKG 1 Time of EKG reading by physician:: 09:40 EKG Read and Signed by:: Linda Dunne EKG Interpretation (*Must complete 3 of following elements*): Normal Rate: 85 [place]: normal QRS: normal ST Wave: normal - XRAY 1 XRAY Study: Chest Impression: See EMR Report (CHEST-1 VIEW - 08/02/2019 INDICATION: SOB COMPARISON: 07/28/2019 FINDINGS: There is a focal alveolar infiltrate in the perihilar left upper lobe. No pneumothorax or large pleural effusion. Heart size remains normal. Stable right chest port in good position. IMPRESSION: Focal infiltrate in the left upper lobe compatible with pneumonia or pneumonitis. Electronically signed by Hansel Renee 08/02/2019 10:04 AM 08/02/19 1004 I nterpreting Physician: Hansel Renee MD Dictated Date/Time: 08/02/19 0958) Departure - Departure Date of Disposition Decision: 08/02/19 Time of Disposition Decision: 12:03 DIAGNOSIS: Pneumonia Qualifiers: Pneumonia type: due to unspecified organism Laterality: unspecified laterality Lung location: unspecified part of lung Qualified Code(s): J18.9 - Pneumonia, unspecified organism Disposition: ADMITTED INPATIENT 09 Certified Medical Emergency: Emergent Condition: Stable Referrals and Follow-Ups: Ez Dave [Primary Care Provider] - - Critical Care Note This patient required my direct & personal management of CC.: No Attestation - Physician/ DANY Attestation Patient care was provided by Advanced Practice Provider:: Yes Advanced Practice Provider:: Ilene Gomez Advanced Practice Provider documentation review:: The Mid-level provider documentation, treatment plan and medical decision making was reviewed by the physician who agrees with all treatment and medical decision making by the MLP. The physician spent face to face time with patient:: No (Discussed pt with Dr. Dunne, he agrees with admit plan.) Advanced Practice Provider documentation review:: Supervising physician onsite and consulted in the evaluation and care of this patient. The physician did not have a face to face encounter with the patient.
--- NOTE | 2019-08-02 10:07 | Diag Imaging Result Doc PS360 ---
CHEST-1 VIEW - 08/02/2019 INDICATION: SOB COMPARISON: 07/28/2019 FINDINGS: There is a focal alveolar infiltrate in the perihilar left upper lobe. No pneumothorax or large pleural effusion. Heart size remains normal. Stable right chest port in good position. IMPRESSION: Focal infiltrate in the left upper lobe compatible with pneumonia or pneumonitis. Electronically signed by Hansel Renee 08/02/2019 10:04 AM
--- NOTE | 2019-08-02 10:22 | EKG Report ---
Test Performed on : 08/02/2019 09:39:27 AM Test Reason : SOB Blood Pressure : / mmHG Vent. Rate : 085 BPM Atrial Rate : 085 BPM P-R Int : 136 ms QRS Dur : 074 ms QT Int : 382 ms P-R-T Axes : 081 054 086 degrees QTc Int : 454 ms Sinus rhythm. with marked sinus arrhythmia. Septal infarct (cited on or before 29-MAR-2019) Abnormal ECG When compared with ECG of 29-MAR-2019 08:54, QT has lengthened Unconfirmed Result
[2019-08-02 10:29] LABS: BASO# 0.08 X1000 (0.0-0.2); BASO% 0.3 % (0.0-0.8); EOS# 0.05 X1000 (0.0-0.7); EOS% 0.2 % (0.0-10.0); HEMATOCRIT 30.2 % (42.0-52.0); HEMOGLOBIN 9.7 g/dL (14.0-18.0); IMM GRAN# 0.31 X1000 (0.0-0.04); IMM GRAN% 1.3 % (0.0-0.5); LYMPH# 1.36 X1000 (1.2-3.4); LYMPH% 5.7 % (20.5-51.1); MCH 32.4 PG (27-31); MCHC 32.1 g/dL (33-37); MONO% 7.6 % (1.7-9.3); MPV 11.4 FL (7.4-10.4); NEUT# 20.22 X1000 (1.4-6.5); NEUT% 84.9 % (42.2-75.2); PLT 113 X1000 (130-400); RBC 2.99 XMIL (4.7-6.1); RDW 17.9 % (11.5-14.5); WBC 23.82 X1000 (4.8-10.8)
[2019-08-02 10:40] LABS: ALB/GLOB RATIO 1.4; CALCIUM 8.3 mg/dL (8.8-10.2); CREATININE 1.4 mg/dL (0.7-1.2); POTASSIUM 3.6 mmol/L (3.5-5.1); TOTAL BILIRUBIN 0.79 mg/dL (0.20-1.00); TOTAL PROTEIN 5.1 g/dL (6.3-8.3)
[2019-08-02 10:56] LABS: BANDS 9 % (0-1); LYMPHS 5 % (21-51); MONO 4 % (1-9); SEGS 81 % (42-75)
[2019-08-02] MEDS ORDERED: ZITHROMAX 500 MG/NS 500 MG/250 ML IVPB IV ONE ×2 (10:59→14:00)
[2019-08-02] MEDS ORDERED: ROCEPHIN 1 GM in NS 50 ML IV ONE (10:59)
[2019-08-02] MEDS ORDERED: TYLENOL PO PRN (13:04)
[2019-08-02] MEDS ORDERED: NORCO-10 PO PRN (13:07)
[2019-08-02 13:36] LABS: IRON SATURATION 11 %; TIBC 162 ug/dL; TOTAL IRON 18 ug/dL (53-167); UNBOUND IRON 144 ug/dL (112-346)
[2019-08-02] MEDS: NS 1,000 ML IV SCH (14:11)
[2019-08-02 14:30] LABS: FERRITIN 2465 ng/mL (30-400)
[2019-08-02] MEDS ORDERED: ZOFRAN IV PRN (14:41)
[2019-08-02] MEDS: LOVENOX SUBQ SCH (14:57)
--- NOTE | 2019-08-02 15:26 | HISTORY AND PHYSICAL ---
PRIMARY CARE PROVIDER: Dr. Dave in [place]. ONCOLOGIST: Dr. Webber. CHIEF COMPLAINT: Severe shortness of breath, weakness, dizziness, nausea, abdominal pain, decreased appetite, fever and colored phlegm. HISTORY OF PRESENT ILLNESS: Mr. Patricio Santana is a 73-year-old, male with a medical history of lung cancer and has been receiving chemo treatment since 2016. Most recently had a chemo treatment changed about 2 weeks ago. Also, with history of COPD on home oxygen. Prescription dose is 3 L, but usually wears 4 to 5. Also a chronic pain syndrome on morphine and chronic opiate use. History of coronary disease with 5 cardiac stents. An adrenal insufficiency is now here with complaints of shortness of breath. Apparently for the last 2 weeks he has had shortness of breath, weakness, subjective fever, but has been having some chambers- colored productive cough, dizziness, nausea this morning, severe shortness of breath this morning. In the last 2 weeks also has had a decreased appetite, bilateral lower quadrant abdominal tenderness, just constant nausea. He really feels like this is from the change in his chemotherapy treatment, and so will get a consult in for Dr. Webber so they can discuss that. He also is having some anemia, but no actual signs of blood loss. No black tarry stools or emesis of coffee- ground color, and vital signs are currently stable. We will admit to the medical floor for further treatment. Imaging reveals that he does have a left upper lobe pneumonia that he will be initiated on antibiotics for. I also believe that he had actually gone to his primary care provider, Dr. Dave in [place], who prescribed him on Levaquin, but this apparently was not working because he felt worse this morning. PAST MEDICAL HISTORY: 1. Lung cancer, diagnosed 2016, treated with chemo ever since. 2. Arthritis. 3. Chronic obstructive pulmonary disease. Prescription of oxygen 3 L that he wears 4-5. 4. Hypertension. 5. Myocardial infarction with a history of coronary artery disease diagnosed in 2010 with 5 cardiac stents. 6. Adrenal insufficiency. 7. BPH. 8. Chronic pain syndrome on chronic opiate use. 9. Diastolic heart failure. SURGICAL HISTORY: 1. Bilateral cataract surgery. 2. PTCA x5 stents in 2010. 3. ERCP with stent. 4. Esophageal dilatation due to dysphagia. 5. Port placed. SOCIAL HISTORY: Denies alcohol. He used to smoke, quit around 8 or 9 months ago. Was a half a pack to a pack per day smoker for 50+ years. Denies any illicit drug use. He lives with his girl friend. Uses a walker or cane or scooter; whatever helps him get around. He wishes to be a do not resuscitate; he has a living will at home that he plans on bringing here. FAMILY HISTORY: Mother with 2 strokes. Father at age 42 with lymphoma. ALLERGIES: Shellfish and iodine. HOME MEDICATIONS: 1. Lipitor 20 mg p.o. nightly. 2. Aspirin 81 mg p.o. daily. 3. Hydrocortisone 20 mg in the morning, 10 mg at night. 4. He takes dexamethasone temporarily with each chemo treatment. 5. Chemo treatment I believe is called Taxotere. 6. Neurontin 300 mg p.o. t.i.d. 7. Rapelje 10s one tablet p.o. every 6 hours p.r.n. 8. Metoprolol succinate 25 mg p.o. daily. 9. Morphine sulfate 15 mg p.o. every 12 hours. 10. Omeprazole 40 mg p.o. daily. 11. Spironolactone 25 mg p.o. daily. 12. Symbicort 160/4.5 inhaled twice daily p.r.n. 13. Flomax 0.4 mg p.o. daily. 14. Zyrtec 10 mg p.o. daily. 15. Lasix 40 mg p.o. daily. REVIEW OF SYSTEMS: Fourteen point review of systems are complete and all were negative, except those mentioned above in the HPI. PHYSICAL EXAMINATION: VITAL SIGNS: Temperature 97.7 degrees, heart rate 85, respiratory rate 20, blood pressure 112/72, O2 saturation 95% on 3 L, 5 feet 11 inches tall, 168 pounds, BMI is 23.4. GENERAL: Mr. Patricio Santana is a 73-year-old male. He is in no acute distress, able to answer questions appropriately. HEENT: Atraumatic, normocephalic. Pupils equal, round, reactive to light. Extraocular movements intact. Mucous membranes are dry. There is a scab on the back of his scalp. NECK: Trachea midline. CARDIOVASCULAR: S1, S2. Regular rate and rhythm. No rubs, gallops, murmurs. No lower extremity edema. +2 dorsalis and radial pulses. Negative JVD or carotid bruits. PULMONARY: Clear to auscultation. Bilateral breath sounds. No accessory muscle use or work of breathing noted. Currently tolerating 3 L nasal cannula. GI: Soft, tender in bilateral lower quadrants. Positive bowel sounds x4. EXTREMITIES: Moves all extremities equally. Full range of motion. NEUROLOGIC: A and O x3. Follows commands. Sensory is intact. SKIN: Warm, dry, intact. LABORATORY DATA: White blood cells 23,000, hemoglobin 9, hematocrit 30, platelet count 113. Sodium 144, potassium 3.6, BUN 23, creatinine is 1.4, glucose 121, calcium 8.3. Iron 18, total iron binding capacity 162, saturation 11%. Bilirubin 0.79, AST 17, ALT 11. Troponin less than 0.01. ProBNP 3983. Albumin 3.0. Serum lactate 1.6. IMAGING: Chest x-ray: Focal infiltrate in the left upper lobe compatible with pneumonia or pneumonitis. EKG: Normal sinus rhythm, rate 85, QTc 454. ASSESSMENT/PLAN: 1. Left upper lobe pneumonia. Failed outpatient treatment with Levaquin. We will do Rocephin here. He is not in any respiratory distress now, but we will continue him on nebulizers for cough, deep breathe and oxygen. 2. Chronic obstructive pulmonary disease. No exacerbation. Again, we will continue with nebulizers and oxygen. 3. Lung cancer history. States he is having some issues from his last chemotherapy treatment. Apparently he changed from one treatment to Taxotere. Feels like he is having these symptoms from that, and will consult Dr. Webber. 4. Complaints of bilateral lower quadrant abdominal discomfort and had some diarrhea. He will be on a proton pump inhibitor. We will get an abdominal x-ray and check a Clostridium difficile. He has been diarrhea-free for the last day and a half. 5. Iron deficiency anemia. We will also check the stool to make sure there is no blood in that, but he states that it was dark green in color. We will start him on iron supplementation. 6. Nausea, decreased appetite, poor nutritional intake--likely all secondary to being sick, but will do nutritional consult. Antiemetics as needed. 7. Hypertension. We will continue his metoprolol. 8. Diastolic heart failure. No acute exacerbation, but we will continue the Lasix. Continued on spironolactone. 9. Benign prostatic hyperplasia. Continue tamsulosin. 10. Chronic pain. Continue morphine and Rapelje. 11. Adrenal insufficiency. We will get a cortisol level and continue on his dexamethasone 20 in the morning and 10 at night. 12. History of coronary artery disease with 5 cardiac stents. Continue statin, aspirin and Lopressor. 13. Deep vein thrombosis prophylaxis with sequential compression devices. 14. The patient states he has a living will and is a do not resuscitate level 1. Dictated by LIOR Tony for Jonas Samuel MD Addendum: Patient seen and examined by myself. Agree with LIOR note. It reflects my assessment and plan. Patient is being admitted for left upper lobe pna. Will start broad spectrum antibiotics and will provide Duoneb q4hrs scheduled. Will continue with home meds for chronic medical conditions. cc: LIOR Tony MD [facility]
--- NOTE | 2019-08-02 15:32 | Diag Imaging Result Doc PS360 ---
EXAM: ABDOMEN FLAT/UPRIGHT 08/02/2019 HISTORY: abd pain TECHNIQUE: Flat and upright abdomen COMMENT: There is an aortic iliac endograft. The bowel gas pattern is nonspecific and there is no evidence of obstruction. There are degenerative changes in the lumbar spine with scoliosis and convexity to the left. There is no evidence of organomegaly or mass. IMPRESSION: Nonspecific abdomen. Electronically signed by Sebas Byrne 08/02/2019 3:30 PM
[2019-08-02] MEDS: DUONEB (A & A) INH SCH ×3 (16:08→23:36)
[2019-08-02] MEDS: PULMICORT INH SCH (19:35)
[2019-08-02] MEDS: MUCOMYST 20% INH SCH (19:35)
[2019-08-02] MEDS: NEURONTIN PO SCH ×2 (22:32→22:34)
[2019-08-02] MEDS: CORTEF PO SCH (22:32)
[2019-08-02] MEDS: LIPITOR PO SCH (22:32)
[2019-08-02] MEDS: ICAR-C PO SCH (22:33)
[2019-08-02] MEDS: MS CONTIN PO SCH (22:33)
[2019-08-03] MEDS: DUONEB (A & A) INH SCH ×6 (03:41→23:43)
[2019-08-03 07:31] LABS: BASO# 0.02 X1000 (0.0-0.2); BASO% 0.1 % (0.0-0.8); HEMATOCRIT 29.7 % (42.0-52.0); HEMOGLOBIN 9.4 g/dL (14.0-18.0); IMM GRAN# 0.19 X1000 (0.0-0.04); IMM GRAN% 0.7 % (0.0-0.5); LYMPH# 0.64 X1000 (1.2-3.4); LYMPH% 2.3 % (20.5-51.1); MCH 32.2 PG (27-31); MCHC 31.6 g/dL (33-37); MCV 101.7 FL (81-99); MONO# 0.54 X1000 (0.11-0.59); MONO% 1.9 % (1.7-9.3); MPV 10.8 FL (7.4-10.4); NEUT# 26.82 X1000 (1.4-6.5); PLT 115 X1000 (130-400); RBC 2.92 XMIL (4.7-6.1); RDW 17.7 % (11.5-14.5); WBC 28.21 X1000 (4.8-10.8)
[2019-08-03 07:40] LABS: ALB/GLOB RATIO 0.9; ALBUMIN 2.6 g/dL (3.5-5.0); CALCIUM 8.6 mg/dL (8.8-10.2); CREATININE 1.4 mg/dL (0.7-1.2); POTASSIUM 4.1 mmol/L (3.5-5.1); TOTAL BILIRUBIN 0.28 mg/dL (0.20-1.00); TOTAL PROTEIN 5.4 g/dL (6.3-8.3)
[2019-08-03] MEDS: PULMICORT INH SCH ×2 (08:09→19:48)
[2019-08-03] MEDS: MUCOMYST 20% INH SCH ×2 (08:09→19:48)
[2019-08-03 08:46] LABS: SEGS 100 % (42-75)
[2019-08-03] MEDS ORDERED: ROCEPHIN 1 GM in NS 50 ML IV SCH (09:00)
--- NOTE | 2019-08-03 10:01 | Diag Imaging Result Doc PS360 ---
EXAM: CHEST-2 VIEWS 08/03/2019 HISTORY: Pneumonia TECHNIQUE: PA and lateral chest COMMENT: There is hyperinflation of the lungs. There is blunting of the left costophrenic angle which was not the case on the previous study of 08/02/2019. There is a somewhat more discrete opacity present in the left midlung which may be in the upper lobe. There is retraction of the hilum superiorly and to the left. There are calcifications and probable stents in the coronary arteries. There is a Port-A-Cath on the right. IMPRESSION: Improvement in left upper lobe pneumonia which is possibly related to endobronchial obstruction by mass. New left pleural effusion. Electronically signed by Sebas Byrne 08/03/2019 9:59 AM
[2019-08-03] MEDS: CORTEF PO SCH ×2 (10:32→20:29)
[2019-08-03] MEDS: ALDACTONE PO SCH (10:33)
[2019-08-03] MEDS: ASPIRIN EC PO SCH (10:33)
[2019-08-03] MEDS: ICAR-C PO SCH ×2 (10:33→20:30)
[2019-08-03] MEDS: ZYRTEC PO SCH (10:33)
[2019-08-03] MEDS: PRILOSEC PO SCH (10:33)
[2019-08-03] MEDS: LASIX PO SCH (10:33)
[2019-08-03] MEDS: TOPROL XL PO SCH (10:33)
[2019-08-03] MEDS: FLOMAX PO SCH (10:34)
[2019-08-03] MEDS: NEURONTIN PO SCH ×4 (10:36→22:31)
[2019-08-03] MEDS: NS 1,000 ML IV SCH ×2 (10:36→19:27)
[2019-08-03] MEDS: MS CONTIN PO SCH ×2 (10:42→20:28)
--- NOTE | 2019-08-03 13:05 | PROGRESS NOTE ---
DATE: 08/03/2019 SUBJECTIVE: The patient reports definitely breathing much better. Denies any fever or chills. OBJECTIVE: Vital Signs: Temperature 97.4 degrees, heart rate 71, respiratory rate 18, blood pressure 110/59, O2 saturation 100% on 4 L nasal cannula. General Examination: This is a 73-year- old male, lying in bed in no acute distress. Cardiovascular exam: S1, S2 heard. No murmurs, gallops, or rubs. Regular rate and rhythm. Respiratory exam: Minimal coarse breath sounds noted in both pulmonary bases. Patient not using any accessory muscles or having work of breathing. Abdomen: Soft, nontender to palpation. Bowel sounds present. No organomegaly. Extremities: No clubbing, cyanosis, or edema. Peripheral pulses present in both legs. Neurological exam: Patient alert and oriented x3. Moves 4 extremities. LABORATORY DATA: White cell count 28.21, hemoglobin 9.4, hematocrit 29.7, platelets 115 with creatinine 1.4. ASSESSMENT AND PLAN: 1. Left upper lobe pneumonia. The patient failed outpatient treatment with Levaquin, so the patient currently is on Rocephin. I think considering her comorbidities, I prefer to be more aggressive and change to Zyvox and cefepime. We will provide also breathing treatment as needed, as well as Mucomyst. White cell count is still high, but I think it is because of chronic steroid use. He is on Cortef, but yesterday he received huge doses of intravenous steroids; in this case, it was 125 mg of Solu-Medrol. As indicated, we will continue to monitor this patient closely. 2. Chronic obstructive pulmonary disease not in exacerbation. We will provide breathing treatment as needed only. 3. History of colon cancer. Aware. Dr. Webber from Oncology has been consulted. 4. Diarrhea/bilateral lower quadrant abdominal discomfort. Clostridium difficile colitis. Stool sample has been ordered, but has not been collected yet. We will continue to monitor. 5. Iron deficiency anemia. We will continue to monitor. 6. Hypertension. Blood pressure is under control. We will continue with home medication of Toprol. 7. Diastolic heart failure. Aware. We will continue to monitor. 8. Chronic pain. We will continue with morphine and Benjamin. 9. Benign prostatic hyperplasia. 10. Disposition: At this point, we will continue to monitor the patient closely, checking labs every single day. We will go from there. cc: Jonas Samuel MD
[2019-08-03] MEDS: MAXIPIME 1 GM in NS 50 ML IV SCH (13:43)
[2019-08-03] MEDS: ZYVOX 600 MG/D5W 600 MG/300 ML IVPB IV SCH (13:44)
[2019-08-03] MEDS: LOVENOX SUBQ SCH (13:44)
--- NOTE | 2019-08-03 14:56 | HEMO/ONC CONSULTATION ---
DATE: 08/03/2019 REQUESTING PHYSICIAN: LIOR Tony. REASON FOR CONSULTATION: Lung cancer. Patient known to you. CHIEF COMPLAINT: Productive cough/shortness of breath. HISTORY OF PRESENT ILLNESS: Mr. Santana is a very pleasant, 73-year-old, male who is well known to Dr. Marisol Webber with a history of metastatic recurrent non-small cell, squamous cell lung cancer. He recently completed his 1st cycle of Taxotere and Cyramza on 07/19/2019. After his 1st cycle, he began experiencing dizziness, hoarseness, productive yellow cough, wheezing, weight loss, as well as hallucinations. He did follow up in the clinic on 07/28/2019 and was seen by our physician teachers assistant, and at that time was given IV hydration and a chest x-ray was performed. He reports his symptoms persisted and ultimately, he followed up with his primary care physician who gave him Levaquin. He had no significant improvement in symptoms and ultimately presented to [facility] yesterday for further evaluation and workup. Once here, a chest x-ray was performed, revealing improvement in left upper lobe pneumonia which is possibly related to endobronchial obstruction by a mass with new left pleural effusion. He has been started on Rocephin per primary care. He does note significant improvement in his symptoms since admission. He does continue to have a productive yellow cough. However, his shortness of breath has significantly improved. Denies any fevers or chills. His hallucinations have also resolved. He does note [id number] back and hip pain which may possibly be new and secondary to his recent Neulasta treatment. We have been asked to evaluate. PAST MEDICAL HISTORY: 1. Metastatic recurrent non-small cell, squamous cell lung cancer, status post cycle 1 of Taxotere and Cyramza on 07/19/2019. 2. COPD, currently on home oxygen. 3. Hypertension. 4. Hyperlipidemia. 5. Arthritis. 6. BPH. 7. Adrenal insufficiency. 8. Chronic diastolic heart failure. 9. Chronic pain syndrome, on chronic opiate use. 10. History of [place] with CAD diagnosed in 2010. 11. AAA. 12. Skin cancer. He had previous radiation to the nose. PAST SURGICAL HISTORY: 1. Cardiac stents x5 in 2010. 2. Port placement. 3. Bilateral cataract surgery. 4. Esophageal dilation secondary to dysphasia. 5. ERCP with stent. 6. AAA repair. 7. Hernia repair in the . SOCIAL HISTORY: Patient is . He is a former smoker. He reports he stopped approximately 9 months ago. He smoked for approximately 50 years, 1-1/2 packs per day. No current alcohol use but does endorse that he drank socially in the past. No illicit drug use. He is a retired pathology technician from 2000. FAMILY HISTORY: Mother at age 84 secondary to stroke. Father at age 44 secondary to Hodgkin's lymphoma. He has 2 children who are healthy. ALLERGIES: Iodinated contrast and shellfish. HOME MEDICATIONS: 1. Atorvastatin 20 mg p.o. at bedtime. 2. Gabapentin 300 mg p.o. t.i.d. 3. Metoprolol 25 mg p.o. daily. 4. Morphine sulfate 15 mg p.o. q.12 hours. 5. Tamsulosin 0.4 mg 1 capsule p.o. daily. 6. Hydrocortisone 20 mg p.o. as directed. 7. Lasix 40 mg p.o. daily. 8. Aspirin 81 mg p.o. daily. 9. [place] 10 every 6 hours as needed for pain. 10. Spironolactone 25 mg p.o. daily. 11. Symbicort 1 puff inhaled b.i.d. p.r.n. 12. Esomeprazole 40 mg p.o. daily. 13. Zyrtec 10 mg p.o. daily. REVIEW OF SYSTEMS: Twelve point review of systems reviewed and negative except as mentioned above in the HPI. PHYSICAL EXAMINATION: Vital Signs: Temperature 97.1 degrees, respirations 18, pulse 77, blood pressure 116/60, O2 saturation 97% on 3 L nasal cannula. General: This is a pleasant, male in no apparent distress. Eyes: Pupils equal, round, reactive. Mouth: Oral mucosa normal. CV: Regular rate and rhythm. S1, S2. Pulmonary: Lung sounds clear throughout auscultation bilaterally, nonlabored. GI: Abdomen was soft, nontender, nondistended. Bowel sounds present in all 4 quadrants. Musculoskeletal: No bony abnormality. Skin: No petechia, ecchymosis, or rash. Neurologic: Awake, alert, and oriented to person, place, and time. No focal deficits. Normal gait. LABORATORY DATA: White blood cell count 28.21, hemoglobin 9.4, hematocrit 29.7, and platelets 115,000. Sodium 145, potassium 4.1, chloride 107, CO2 of 26, BUN 27, creatinine 1.4, glucose 202, calcium 8.6. MICROBIOLOGY: Blood cultures pending. Sputum culture pending. RADIOLOGY: Abdominal x-ray on 08/02/2019, nonspecific abdomen. Chest x-ray on 08/02/2019. Impression of improvement in left upper lobe pneumonia which is possibly related to endobronchial obstruction by mass and the left pleural effusion. ASSESSMENT AND PLAN: 1. Metastatic recurrent non-small cell, squamous cell lung cancer initially diagnosed in 2015. He has received chemotherapy since that time. Most recently, he completed his 1st cycle of Taxotere and Cyramza on 07/19/2019. Next cycle is due 08/09/2019. Given his difficulties after cycle 1, at this time, he is not interested in pursuing this particular regimen further. We will discuss further plans of care with Dr. Webber upon her return. For now, we will plan to hold any chemotherapy until acute issues have resolved. 2. Left upper lobe pneumonia. He recently failed outpatient Levaquin. He is currently on Rocephin per primary care physician. Clinically, he has shown improvement. Continue supportive measures. 3. Chronic obstructive pulmonary disease with possible mild exacerbation. Continue supplemental oxygen as well as nebulizers. Management per primary care. 4. Pain. He does note some mild back, hip, as well as abdominal pain. Back and hip pain may be musculoskeletal. He does have a history of arthritis. He did also recently receive Neulasta. He is noted to have chronic pain issues. She his symptoms persist or worsen we may consider additional imaging. Continue supportive measures. 5. Iron deficiency anemia. Hemoglobin 9.4. Iron saturation low at 11. Ferritin was quite elevated at 2465, likely inflammatory. He has been started on oral iron supplementation per primary care physician. We will monitor. 6. Hypertension. Blood pressure well controlled at 116/60. Continue present management per primary care. 7. Adrenal insufficiency. Currently on dexamethasone. Primary is following. 8. Benign prostatic hypertrophy. Continue tamsulosin and per primary care. 9. Nausea and decreased appetite with approximate 15 pound weight loss over the last 2 weeks. At this time, his nausea has resolved. Continue antiemetics as needed. Continue intravenous hydration. A nutritional consultation has been placed. The above findings represent the assessment and plan of Dr. Gianni Escalante. Further recommendations pending clinical outcomes. Thank you for allowing us to participate in the care of this pleasant patient. We will follow closely. Dictated by LIOR Pitt for Gianni Escalante MD cc: LIOR Pitt MD [facility]
[2019-08-03] MEDS: SYSTANE EYE DROPS BOTH EYES PRN ×2 (15:15→20:33)
[2019-08-03 19:56] LABS: URINE SOURCE CLEAN CATCH
[2019-08-03 19:58] LABS: BILIRUBIN URINE NEGATIVE (NEGATIVE); BLOOD URINE NEGATIVE (NEGATIVE); COLOR YELLOW; GLUCOSE URINE NEGATIVE (NEGATIVE); KETONE URINE NEGATIVE (NEGATIVE); LEUKOCYTES URINE NEGATIVE (NEGATIVE); NITRITE URINE NEGATIVE (NEGATIVE); PH URINE 5.5; PROTEIN URINE 30 mg/dL (NEGATIVE); SP GRAVITY URINE 1.019; TURBIDITY URINE CLEAR (CLEAR); UROBILINOGEN URINE NORMAL (NORMAL)
[2019-08-03 19:59] LABS: UR EPITHELIAL CELLS <10 /HPF (<10); URINE BACTERIA NEGATIVE /HPF; URINE RBC <10 /HPF (<10); URINE WBC <10 /HPF (<10)
[2019-08-03] MEDS: AMBIEN PO SCH (20:27)
[2019-08-03] MEDS: LIPITOR PO SCH (20:30)
[2019-08-04] MEDS: MAXIPIME 1 GM in NS 50 ML IV SCH ×3 (00:17→23:50)
[2019-08-04] MEDS ORDERED: TUMS EXTRA STRENGTH PO ONE (00:26)
[2019-08-04] MEDS: ZYVOX 600 MG/D5W 600 MG/300 ML IVPB IV SCH ×3 (00:48→23:52)
[2019-08-04] MEDS: DUONEB (A & A) INH SCH ×6 (03:12→23:11)
[2019-08-04] MEDS: NS 1,000 ML IV SCH ×4 (03:43→18:41)
[2019-08-04] MEDS: LASIX PO SCH (08:16)
[2019-08-04] MEDS: TOPROL XL PO SCH (08:16)
[2019-08-04] MEDS: NEURONTIN PO SCH ×3 (08:16→21:24)
[2019-08-04] MEDS: PRILOSEC PO SCH (08:16)
[2019-08-04] MEDS: ZYRTEC PO SCH (08:16)
[2019-08-04] MEDS: ICAR-C PO SCH ×2 (08:16→21:24)
[2019-08-04] MEDS: CORTEF PO SCH (08:16)
[2019-08-04] MEDS: ALDACTONE PO SCH (08:16)
[2019-08-04] MEDS: ASPIRIN EC PO SCH (08:17)
[2019-08-04] MEDS: FLOMAX PO SCH (08:17)
[2019-08-04] MEDS: PULMICORT INH SCH ×2 (08:24→20:50)
[2019-08-04] MEDS: MUCOMYST 20% INH SCH ×2 (08:24→20:50)
[2019-08-04] MEDS: MS CONTIN PO SCH ×2 (09:43→21:23)
[2019-08-04] MEDS: SYSTANE EYE DROPS BOTH EYES PRN (09:44)
[2019-08-04 12:55] LABS: BASO# 0.02 X1000 (0.0-0.2); BASO% 0.1 % (0.0-0.8); EOS# 0.06 X1000 (0.0-0.7); EOS% 0.2 % (0.0-10.0); HEMATOCRIT 28.2 % (42.0-52.0); HEMOGLOBIN 8.8 g/dL (14.0-18.0); IMM GRAN# 0.29 X1000 (0.0-0.04); IMM GRAN% 0.9 % (0.0-0.5); LYMPH# 0.89 X1000 (1.2-3.4); LYMPH% 2.8 % (20.5-51.1); MCH 32.2 PG (27-31); MCHC 31.2 g/dL (33-37); MCV 103.3 FL (81-99); MONO# 1.59 X1000 (0.11-0.59); MPV 11.1 FL (7.4-10.4); NEUT# 28.82 X1000 (1.4-6.5); PLT 125 X1000 (130-400); RBC 2.73 XMIL (4.7-6.1); RDW 17.6 % (11.5-14.5); WBC 31.67 X1000 (4.8-10.8)
[2019-08-04 13:10] LABS: BANDS 6 % (0-1); LYMPHS 4 % (21-51); SEGS 90 % (42-75)
[2019-08-04 13:24] LABS: CALCIUM 8.4 mg/dL (8.8-10.2); CREATININE 1.8 mg/dL (0.7-1.2)
[2019-08-04] MEDS: LOVENOX SUBQ SCH (13:28)
--- NOTE | 2019-08-04 15:47 | PROGRESS NOTE ---
DATE: 08/04/2019 SUBJECTIVE: The patient reports breathing better. Denies any fever or chills. Denies any shortness of breath. OBJECTIVE: Vital Signs: Temperature 98.3 degrees, heart rate 88, respiratory rate 14, blood pressure 117/47, O2 saturation 99% on room air. General Examination: This is a 73-year-old male, lying in bed, in no acute distress. Chronically ill-looking. Cardiovascular: S1, S2 heard. No murmurs, gallops, or rubs. Regular rate and rhythm. Respiratory: Coarse breath sounds noted in both pulmonary bases. Patient not using any accessory muscles or having work of breathing. Abdomen: Soft, nontender to palpation. Bowel sounds present. No organomegaly. Extremities: No clubbing, cyanosis, or edema. Peripheral pulses present in both legs. Neurological: Patient is alert and oriented x3. Moves 4 extremities. LABORATORY DATA: White cell count is 31.67, hemoglobin 8.8, hematocrit 28.2, platelets 125,000 with BMP remarkable for creatinine 1.8. ASSESSMENT AND PLAN: 1. Left upper lobe pneumonia. The patient has failed outpatient treatment with Levaquin so that is why he has been started on cefepime and Zyvox. Clinically, the patient reports feeling better. His white cell count continues to get up. He is on Cortef and also at admission he received 125 mg of Solu-Medrol. Because the white cell count continues to get higher, I think what we are going to do is to reduce the dose of Cortef that he takes at night. We will continue to monitor CBC daily. As we mentioned before, clinically this patient is feeling better. Less short of breath. 2. COPD. Patient is not on any exacerbation. We will continue to provide breathing treatments as needed. 3. History of colon cancer. Aware. Dr. Webber has been consulted. 4. Diarrhea/bilateral lower quadrant abdominal pain resolved. 5. Hypertension. Blood pressure is well controlled. We will continue with same management. 6. Iron deficiency anemia. Hemoglobin is stable. We will continue to monitor. 7. Diastolic heart failure, aware. We will continue to monitor. 8. Chronic pain. We will continue with morphine and [place]. 9. Benign prostatic hyperplasia, aware. 10. Disposition. On this patient, we will keep him over the weekend. We will continue with antibiotics, checking labs on Wednesday and depending upon how he feels, will let him go. cc: Jonas Samuel MD
--- NOTE | 2019-08-04 17:53 | HEMO/ONC PROGRESS NOTE ---
DATE: 08/04/2019 CHIEF COMPLAINT: Shortness of breath. SUBJECTIVE: Mr. Santana reports that [*] significantly improved through the night and his appetite has returned and he is [*]better. OBJECTIVE: Vital Signs: Temperature 98.3, respiration [*]98% on 4 L nasal cannula. General: Pleasant male, in no apparent distress. Accompanied by family member. HEENT: Eyes: Pupils equal, round, no jaundice noted. Mouth oral mucosa normal. Cardiovascular: Regular rate and rhythm. S1-S2. Pulmonary: Lung sounds clear to auscultation bilaterally. Nonlabored. Gastrointestinal: Abdomen is soft, nontender. Positive bowel sounds in all 4 quadrants. Musculoskeletal: [*] Neurologic: Alert, oriented person, place and time, [*]normal gait. LABORATORY DATA: No a.m. labs. No a.m. imaging. CAN DOFFER/PLAN: 1. Metastatic recurrent non-small cell squamous cell lung cancer, status post 1st cycle of Taxotere [*] 07/19/2018. Next cycle is planned for 08/09/2019. However, he has expressed to us that he is not interested in continuing with this particular treatment at this time. He is going to discuss his concerns with Dr. Webber. For now, we will monitor. 2. Left upper lobe pneumonia, currently on Zyvox and cefepime per primary care. Continue to follow. 3. Chronic obstructive pulmonary disease with possible mild exacerbation, currently on supplemental oxygen as well as nebulizers as needed. Continue antibiotics. Management per primary care. 4. Pain overall improved. Continue supportive measures. Continue current medications. 5. Iron deficiency anemia, currently on iron supplementation. Will continue to monitor. 6. Hypertension. Blood pressure well controlled. Continue current management. 7. We will sign off for the weekend to be available as needed. Will return on Wednesday. Dictated by LIOR Pitt for Marisol Webber MD cc: LIOR Pitt MD
[2019-08-04] MEDS ORDERED: CHLORASEPTIC SPRAY MT PRN (19:52)
[2019-08-04] MEDS: LIPITOR PO SCH (21:24)
[2019-08-04] MEDS: AMBIEN PO SCH (21:25)
[2019-08-05] MEDS: DUONEB (A & A) INH SCH ×6 (04:29→23:48)
[2019-08-05] MEDS: SYSTANE EYE DROPS BOTH EYES PRN (05:22)
[2019-08-05 08:04] LABS: BASO# 0.03 X1000 (0.0-0.2); BASO% 0.1 % (0.0-0.8); HEMATOCRIT 29.7 % (42.0-52.0); HEMOGLOBIN 9.1 g/dL (14.0-18.0); IMM GRAN# 0.46 X1000 (0.0-0.04); LYMPH# 1.11 X1000 (1.2-3.4); LYMPH% 4.9 % (20.5-51.1); MCHC 30.6 g/dL (33-37); MCV 104.6 FL (81-99); MONO# 1.93 X1000 (0.11-0.59); MONO% 8.5 % (1.7-9.3); MPV 11.5 FL (7.4-10.4); NEUT# 19.09 X1000 (1.4-6.5); NEUT% 84.5 % (42.2-75.2); PLT 123 X1000 (130-400); RBC 2.84 XMIL (4.7-6.1); RDW 17.7 % (11.5-14.5); WBC 22.62 X1000 (4.8-10.8)
[2019-08-05 08:15] LABS: CALCIUM 8.6 mg/dL (8.8-10.2); CREATININE 1.8 mg/dL (0.7-1.2)
[2019-08-05] MEDS: MUCOMYST 20% INH SCH ×2 (08:22→19:31)
[2019-08-05] MEDS: PULMICORT INH SCH ×2 (08:22→19:30)
[2019-08-05 08:57] LABS: LYMPHS 10 % (21-51); MONO 8 % (1-9); SEGS 80 % (42-75)
[2019-08-05] MEDS: NEURONTIN PO SCH ×3 (09:27→21:16)
[2019-08-05] MEDS: TOPROL XL PO SCH (09:27)
[2019-08-05] MEDS: FLOMAX PO SCH (09:27)
[2019-08-05] MEDS: PRILOSEC PO SCH (09:27)
[2019-08-05] MEDS: LASIX PO SCH (09:27)
[2019-08-05] MEDS: ICAR-C PO SCH ×2 (09:27→21:16)
[2019-08-05] MEDS: MS CONTIN PO SCH ×2 (09:27→21:15)
[2019-08-05] MEDS: ASPIRIN EC PO SCH (09:28)
[2019-08-05] MEDS: ZYRTEC PO SCH (09:28)
[2019-08-05] MEDS: CORTEF PO SCH (09:28)
[2019-08-05] MEDS: ALDACTONE PO SCH (09:28)
[2019-08-05] MEDS: NS 1,000 ML IV SCH (10:52)
[2019-08-05] MEDS: LOVENOX SUBQ SCH (14:44)
[2019-08-05] MEDS: ZYVOX 600 MG/D5W 600 MG/300 ML IVPB IV SCH (14:44)
[2019-08-05] MEDS: MAXIPIME 1 GM in NS 50 ML IV SCH (14:44)
--- NOTE | 2019-08-05 19:10 | PROGRESS NOTE ---
DATE: 08/05/2019 SUBJECTIVE: Patient continues to report feeling better, breathing better. Denies any fever, chills, or shortness of breath. OBJECTIVE: Vital Signs: Temperature 97.8 degrees, heart rate 101, respiratory rate 18, blood pressure 129/70, O2 saturation 98% on 4 L nasal cannula. General: This is a 73-year-old, male, lying in bed, in no acute distress. Cardiovascular: S1, S2 heard. No murmurs, gallops, or rubs. Regular rate and rhythm. Respiratory: Coarse breath sounds noted in both pulmonary bases. Patient is not using any accessory muscles or having work of breathing. Abdomen: Soft, nontender to palpation. Bowel sounds present. No organomegaly. Extremities: No clubbing, cyanosis, or edema. Peripheral pulses present in both legs. Neurological: Patient is alert and oriented x3. Moves 4 extremities. LABORATORY DATA: White cell count is 22.62, hemoglobin 9.1, hematocrit 29.7, platelets 123,000. ASSESSMENT AND PLAN: 1. Left upper lobe pneumonia. Clinically, patient is getting better. Patient is on cefepime and Zyvox. The patient is on steroids chronically and that definitely explains the elevation on white cell count. We have stopped 1 of the Cortef tablets that he takes at night, and white cell count has improved from 30,000 to 20,000. So at this point, we are going to continue with the same antibiotic management. 2. Chronic obstructive pulmonary disease. Patient is not in an exacerbation. We will provide breathing treatments as needed only. 3. History of colon cancer. Aware. The patient has been consulted. We will follow recommendations. 4. Diarrhea, bilateral lower quadrant abdominal pain. Resolved. 5. Hypertension. Blood pressure is under control. We will continue with same management. 6. Iron-deficiency anemia. Hemoglobin is stable. We will continue to monitor. 7. Diastolic heart failure. Aware. We will continue to monitor. 8. Chronic pain. Patient is on home medications. 9. Disposition. We will continue to monitor this patient over the weekend here in the hospital. If the patient is doing fine, we will check x-ray tomorrow and will discharge him if he is feeling better. cc: Jonas Samuel MD
[2019-08-05] MEDS: AMBIEN PO SCH (21:03)
[2019-08-05] MEDS: LIPITOR PO SCH (21:16)
[2019-08-06] MEDS: NS 1,000 ML IV SCH ×2 (00:23→15:21)
[2019-08-06] MEDS: DUONEB (A & A) INH SCH ×6 (03:52→23:19)
[2019-08-06 07:55] LABS: CALCIUM 7.8 mg/dL (8.8-10.2); CREATININE 1.8 mg/dL (0.7-1.2); POTASSIUM 4.6 mmol/L (3.5-5.1)
[2019-08-06 07:59] LABS: BASO# 0.04 X1000 (0.0-0.2); BASO% 0.2 % (0.0-0.8); EOS# 0.05 X1000 (0.0-0.7); EOS% 0.2 % (0.0-10.0); HEMATOCRIT 31.2 % (42.0-52.0); HEMOGLOBIN 9.4 g/dL (14.0-18.0); IMM GRAN% 3.2 % (0.0-0.5); LYMPH# 1.23 X1000 (1.2-3.4); LYMPH% 5.7 % (20.5-51.1); MCH 31.6 PG (27-31); MCHC 30.1 g/dL (33-37); MCV 105.1 FL (81-99); MONO# 2.02 X1000 (0.11-0.59); MONO% 9.4 % (1.7-9.3); MPV 11.4 FL (7.4-10.4); NEUT# 17.55 X1000 (1.4-6.5); NEUT% 81.3 % (42.2-75.2); PLT 132 X1000 (130-400); RBC 2.97 XMIL (4.7-6.1); WBC 21.59 X1000 (4.8-10.8)
[2019-08-06] MEDS: PULMICORT INH SCH ×2 (08:07→19:31)
[2019-08-06] MEDS: MUCOMYST 20% INH SCH ×2 (08:07→19:31)
[2019-08-06 09:09] LABS: ANISOCYTOSIS 1+; BANDS 2 % (0-1); LYMPHS 8 % (21-51); MONO 4 % (1-9); SEGS 86 % (42-75)
[2019-08-06] MEDS: FLOMAX PO SCH (09:59)
[2019-08-06] MEDS: MS CONTIN PO SCH ×2 (09:59→21:46)
[2019-08-06] MEDS: ZYRTEC PO SCH (09:59)
[2019-08-06] MEDS: ICAR-C PO SCH ×2 (09:59→21:46)
[2019-08-06] MEDS: ASPIRIN EC PO SCH (09:59)
[2019-08-06] MEDS: NEURONTIN PO SCH ×3 (09:59→23:04)
[2019-08-06] MEDS: ALDACTONE PO SCH (09:59)
[2019-08-06] MEDS: LASIX PO SCH (09:59)
[2019-08-06] MEDS: TOPROL XL PO SCH (09:59)
[2019-08-06] MEDS: CORTEF PO SCH (09:59)
[2019-08-06] MEDS: PRILOSEC PO SCH (10:00)
[2019-08-06] MEDS: MAXIPIME 1 GM in NS 50 ML IV SCH ×2 (10:00→21:47)
[2019-08-06] MEDS: ZYVOX 600 MG/D5W 600 MG/300 ML IVPB IV SCH ×2 (10:36→21:47)
--- NOTE | 2019-08-06 12:59 | PROGRESS NOTE ---
DATE: 08/06/2019 SUBJECTIVE: Patient reports breathing better definitely. No fever, chills, or shortness of breath. OBJECTIVE: Vital Signs: Temperature 97.4 degrees, heart rate 81, respiratory rate 18, blood pressure 129/83, O2 saturation 94% on 4 L nasal cannula. General Examination. This is a chronically ill-appearing, 73-year-old, male, lying in bed, in no acute distress. Cardiovascular Examination: S1 and S2 heard. No murmurs, gallops, or rubs. Regular rate and rhythm. Respiratory Examination: Coarse breath sounds still present in both pulmonary bases but definitely much better in comparing with admission. Patient is not using any accessory muscles or having work of breathing. Abdomen: Soft, nontender to palpation. Bowel sounds present. No organomegaly. Extremities: No clubbing, cyanosis, or edema. Peripheral pulses present in both legs. Neurological Examination: The patient is alert and oriented x3. Moves 4 extremities. Laboratory Data: White cell count 21.59, hemoglobin 9.4, hematocrit 31.2, platelets 132,000. BMP reveals creatinine 1.8. ASSESSMENT AND PLAN: 1. Left upper lobe pneumonia. We will continue with cefepime and Zyvox. The fact that he is chronically on steroids make that white cell count not really a good indicator of infection. That continues to be high. It is 20,000 right now, like he was on admission. At this point, we will continue with the same management. He is on Cortef because of his lung cancer. 2. Chronic obstructive pulmonary disease. The patient is not in any exacerbation. We will continue to monitor. 3. History of lung cancer. Hematology/oncology is following this patient. No treatment required at this time. 4. Hypertension. Blood pressure is under control. We will continue with the same management. 5. Iron-deficiency anemia. Hemoglobin is stable. Continue to monitor. 6. Diastolic heart failure. Aware. 7. Chronic pain. We will continue home medications. 8. Disposition. I think if the patient is feeling better and white cell count is similar to what it is today, I think the patient will be discharged. cc: Jonas Samuel MD
[2019-08-06] MEDS: LOVENOX SUBQ SCH (15:22)
[2019-08-06] MEDS: LIPITOR PO SCH (21:46)
[2019-08-06] MEDS: AMBIEN PO SCH (21:48)
[2019-08-07] MEDS: DUONEB (A & A) INH SCH ×6 (02:33→23:18)
[2019-08-07] MEDS: MUCOMYST 20% INH SCH ×2 (07:41→19:25)
[2019-08-07] MEDS: PULMICORT INH SCH ×2 (07:41→19:25)
[2019-08-07 08:13] LABS: BASO# 0.02 X1000 (0.0-0.2); BASO% 0.1 % (0.0-0.8); EOS# 0.13 X1000 (0.0-0.7); EOS% 0.8 % (0.0-10.0); HEMATOCRIT 31.1 % (42.0-52.0); HEMOGLOBIN 9.3 g/dL (14.0-18.0); IMM GRAN# 0.44 X1000 (0.0-0.04); IMM GRAN% 2.7 % (0.0-0.5); LYMPH# 1.44 X1000 (1.2-3.4); LYMPH% 8.9 % (20.5-51.1); MCH 31.4 PG (27-31); MCHC 29.9 g/dL (33-37); MCV 105.1 FL (81-99); MONO# 1.47 X1000 (0.11-0.59); MONO% 9.1 % (1.7-9.3); MPV 11.5 FL (7.4-10.4); NEUT# 12.61 X1000 (1.4-6.5); NEUT% 78.4 % (42.2-75.2); PLT 147 X1000 (130-400); RBC 2.96 XMIL (4.7-6.1); RDW 17.6 % (11.5-14.5); WBC 16.11 X1000 (4.8-10.8)
[2019-08-07 08:23] LABS: CALCIUM 8.1 mg/dL (8.8-10.2); CREATININE 1.9 mg/dL (0.7-1.2); POTASSIUM 4.6 mmol/L (3.5-5.1)
[2019-08-07] MEDS: NEURONTIN PO SCH ×3 (10:39→20:32)
[2019-08-07] MEDS: ASPIRIN EC PO SCH (10:39)
[2019-08-07] MEDS: ZYRTEC PO SCH (10:39)
[2019-08-07] MEDS: FLOMAX PO SCH (10:39)
[2019-08-07] MEDS: PRILOSEC PO SCH (10:39)
[2019-08-07] MEDS: CORTEF PO SCH (10:39)
[2019-08-07] MEDS: LASIX PO SCH (10:40)
[2019-08-07] MEDS: TOPROL XL PO SCH (10:40)
[2019-08-07] MEDS: ICAR-C PO SCH ×2 (10:40→20:32)
[2019-08-07] MEDS: ALDACTONE PO SCH (10:40)
[2019-08-07] MEDS: MS CONTIN PO SCH ×2 (10:40→20:36)
[2019-08-07] MEDS: ZYVOX 600 MG/D5W 600 MG/300 ML IVPB IV SCH ×2 (10:46→20:31)
[2019-08-07] MEDS: MAXIPIME 1 GM in NS 50 ML IV SCH ×2 (10:46→20:32)
--- NOTE | 2019-08-07 12:31 | PROGRESS NOTE ---
DATE: 08/07/2019 SUBJECTIVE: The patient reported last night that he has been feeling short of breath and coughing more. No fever or chills. No shortness of breath noted. OBJECTIVE: Vital Signs: Temperature 97.9 degrees, heart rate 85, respiratory rate 16, blood pressure 128/41, O2 saturation 99% on 4 L nasal cannula. General Examination: This is a chronically ill-looking, 73-year-old, male, lying in bed, in no acute distress. Cardiovascular Examination: S1 and S2 heard. No murmurs, gallops, or rubs. Regular rate and rhythm. Respiratory Examination: Coarse breath sounds still present in both pulmonary bases, the same in comparing with yesterday. Patient is not using any accessory muscles or having work of breathing. Abdomen: Soft, nontender to palpation. Bowel sounds present. No organomegaly. Extremities: No clubbing, cyanosis, or edema. Peripheral pulses present in both legs. Neurological Examination: The patient is alert and oriented x3. Moves 4 extremities. Laboratory Data: White cell count has improved from 21,000 to 16,000, with hemoglobin 9.3, hematocrit 31.1, platelets 147,000. Creatinine 1.9. ASSESSMENT AND PLAN: 1. Left upper lobe pneumonia. Patient continues to be on cefepime and Zyvox. Clinically, this patient was not getting better in the last 24 hours. White cell count has improved. He is on chronic steroids so the leukocytosis does not necessarily correlate with his clinical situation. He is on Cortef because of his lung cancer so, at this point, we will continue with the same management. I have informed the patient that he may be discharged within the next 24 to 48 hours, depending upon how he feels. 2. Chronic obstructive pulmonary disease. Patient is not in any exacerbation. We will continue to monitor this patient closely. 3. History of lung cancer. The patient was evaluated by hematology/oncology here in the hospital but no treatment required at this time. 4. Hypertension. Blood pressure is under control. We will continue with the same management. 5. Iron deficiency anemia. Hemoglobin is stable. We will continue to monitor. 6. Diastolic heart failure. We will continue home medications. 7. Chronic pain. We will continue home medications. 8. Disposition. The patient was not doing good during the last 24 hours clinically. He agreed to stay. He may be discharged within the next 24 to 48 hours. cc: Jonas Samuel MD MTDD
[2019-08-07] MEDS: LOVENOX SUBQ SCH (14:56)
--- NOTE | 2019-08-07 15:38 | Diag Imaging Result Doc PS360 ---
EXAM: US RENAL 2 (RETROPER) COMPLETE 08/07/2019 HISTORY: decreased renal function TECHNIQUE: Renal ultrasound COMMENT: The kidneys are without evidence of hydronephrosis or mass. There are no definite stones. The urinary bladder is unremarkable. The right kidney is 10.1 x 4.3 x 5 cm the left is 9 x 5.6 x 5.5 cm. IMPRESSION: No evidence of obstructive uropathy. Electronically signed by Sebas Byrne 08/07/2019 3:36 PM
--- NOTE | 2019-08-07 18:36 | HEMO/ONC PROGRESS NOTE ---
DATE: 08/07/2019 CHIEF COMPLAINT: He had a rough morning. HPI: Mr. Santana woke up with increasing shortness of breath this morning and had to be given an urgent breathing treatment. He then subsequently had an episode of diarrhea that led to fecal incontinence and after getting his breathing under control and cleaned up from his accident, he has been sleeping for the past hour according to his significant other who is at the bedside. Otherwise, he has had a good weekend is eating well and his breathing was much improved. He was hoping to go home today, but Dr. Raygoza has told the family that they would likely keep him an extra day or 2 because this morning's events. PHYSICAL EXAMINATION: Vital signs: Temperature 97.9 degrees, pulse 102, respiratory rate 20, blood pressure 124/76, O2 saturation 100% on 4 L. General: This is a chronically ill-appearing man in no distress. He is accompanied by his significant other at the bedside. Cardiovascular: Regular rate and rhythm. Normal S1, S2. No murmurs, rubs, or gallops. Pulmonary: Coarse bilateral breath sounds. No wheezes, rales, or rhonchi. Abdomen: Soft, nontender, nondistended with normoactive bowel sounds. Extremities: No clubbing, cyanosis, or edema. LAB: Sodium 142, potassium 4.6, chloride 107, bicarb 26, BUN 25, creatinine 0.9, glucose 93. White count 16, hemoglobin 9.3, platelet count 147,000. ASSESSMENT AND PLAN: 1. Metastatic lung cancer: Treatment is on hold given acute events. We will reassess as an outpatient to determine candidacy for further therapy, likely with at least some dose reductions. 2. Left upper lobe pneumonia: Clinically improving. White count down to 16,000. Continue current antibiotics and steroid support. Continue to monitor. 3. Chronic obstructive pulmonary disease: Severe. Continue supportive care. O2 saturation is 100% on 4 L today. Continue current management. 4. Anemia: Treatment induced. Hemoglobin is stable at 9.3. Continue to monitor. cc: MD Jonas Bower MD
[2019-08-07] MEDS: NS 1,000 ML IV SCH (19:22)
[2019-08-07] MEDS: LIPITOR PO SCH (20:32)
[2019-08-07] MEDS: AMBIEN PO SCH (20:36)
[2019-08-08] MEDS: DUONEB (A & A) INH SCH ×6 (03:38→23:04)
[2019-08-08 07:49] LABS: BASO# 0.03 X1000 (0.0-0.2); BASO% 0.2 % (0.0-0.8); EOS# 0.12 X1000 (0.0-0.7); EOS% 0.8 % (0.0-10.0); HEMATOCRIT 27.6 % (42.0-52.0); HEMOGLOBIN 8.6 g/dL (14.0-18.0); IMM GRAN# 0.53 X1000 (0.0-0.04); IMM GRAN% 3.4 % (0.0-0.5); LYMPH# 1.25 X1000 (1.2-3.4); LYMPH% 8.1 % (20.5-51.1); MCH 32.3 PG (27-31); MCHC 31.2 g/dL (33-37); MCV 103.8 FL (81-99); MONO# 1.65 X1000 (0.11-0.59); MONO% 10.6 % (1.7-9.3); MPV 11.4 FL (7.4-10.4); NEUT# 11.93 X1000 (1.4-6.5); NEUT% 76.9 % (42.2-75.2); PLT 151 X1000 (130-400); RBC 2.66 XMIL (4.7-6.1); RDW 17.7 % (11.5-14.5); WBC 15.51 X1000 (4.8-10.8)
--- NOTE | 2019-08-08 07:58 | NEPHROLOGY CONSULTATION ---
DATE: 08/07/2019 REASON FOR ADMISSION: Increased work of breathing associated with weakness and dizziness and productive cough. REASON FOR CONSULT: Acute kidney injury. CONSULTING PHYSICIAN: Is Dr. Raygoza. Time seen 1400. HISTORY OF PRESENT ILLNESS: Mr. Santana is a 73-year-old white male with a medical history of lung cancer with Metastasis, who has been receiving chemotherapy treatment since 2016 with a recent change to his chemotherapy treatments approximately 2 weeks ago. The patient has home O2 with 3L prescription. He does have chronic pain syndrome and is on morphine with chronic opiate use. He has known adrenal insufficiency. Presented to [facility]'s Emergency Department after 2 weeks of increased work of breathing, weakness, fever associated with some chills, chambers- colored, productive sputum, dizziness, decrease in appetite and lower abdominal tenderness. The patient states he has chronic nausea. No chest pain. Positive for increased work of breathing. No increased lower extremity swelling. Most of the symptoms he states occurred after his chemotherapy treatment had been changed per Dr. Webber. He has been having frequent anemia. No signs of blood loss. No black tarry stools. No coffee-grounds emesis. He was subsequently admitted to the medical floor for further management with follow-up on left upper lobe pneumonia diagnosed on chest x-ray with antibiotic use. He states that he had previously seen his primary care physician, Dr. Dave in [place] and had been prescribed Levaquin. He felt that this was not working. PAST MEDICAL HISTORY: The patient has chronic kidney disease with baseline creatinine 1.2 in March of this past year with a previous GFR of 54%. Creatinine over the last 24 to 48 hours has remained at 1.8 to 1.9. BUN is stable at 25. He states that he has not had any difficulty with urine output. Last documented at 2340 in and 2100 out to void. Since 2016 treated with chemotherapy ever since, new changes to chemotherapy in the last 2 months, arthritis, chronic obstructive pulmonary disease, home O2 prescription of 3 L, hypertension, myocardial infarct with a history of coronary artery stents diagnosed in 2010 with 5 cardiac stents, adrenal insufficiency, BPH, chronic pain syndrome on chronic opiate use, diastolic heart failure, anemia of chronic disease. SURGICAL HISTORY: Bilateral cataract surgery, PTCA x5, stents in 2010, ERCP with stents, esophageal dilatation due to dysphagia, port placed. He does not remember the surgeon. SOCIAL HISTORY: The patient was a half a pack a day smoker up to 50 years, had quit smoking in the last 8 to 9 months. Denies any alcohol use. No illicit drug use. Lives with his girlfriend. Uses a walker or cane or scooter to get around. He does state that he would like to be a DNR level 1. He would like to go home, re-evaluate his chemotherapy and any further treatments. FAMILY HISTORY: Mother had a history of strokes. Father at the age of 42 from lymphoma. ALLERGIES: Listed as shellfish and iodine and any product containing shellfish. HOME MEDICATIONS: Are Lipitor, aspirin, hydrocortisone, dexamethasone with each chemotherapy treatment, chemotherapy treatment on Taxotere, Neurontin, Leonard, metoprolol succinate, morphine sulfate, omeprazole, spironolactone, Symbicort, Flomax, Zyrtec, Lasix and home O2. REVIEW OF SYSTEMS: Times 10 with pertinent positives listed above in the HPI. Patient's most recent vital signs at the time of evaluation: Last recorded temperature 97.9 degrees, blood pressure 124/76, heart rate 102, respirations 20. He is currently on 4 L nasal cannula. Last recorded saturation is 100%. As mentioned, he has had 2340 in, 2100 out to void. The patient is currently in a 4.2 L fluid positive. LABS: Sodium is 142, potassium 4.6, chloride 107, CO2 26, BUN 25, creatinine 1.9, glucose 98, anion gap of 9, calcium 8.1. Previous albumin 2.6. White count 16.11, hemoglobin 9.3, hematocrit 31.1 with a platelet count of 147,000. The patient has a renal ultrasound. The kidney right kidney measuring 10.1, left measuring 9.0. No hydronephrosis or obstruction noted. PHYSICAL EXAMINATION: General: This is a 73-year-old white male. He is currently resting quietly in bed. He appears chronically ill, no acute distress. Skin: Warm and dry. HEENT: Normocephalic, atraumatic. Conjunctiva is pale pink. He has JENNIFER. Mucous membranes are dry. Scab noted to the back of his scalp on the left. Neck: Supple. Trachea midline. No evidence of JVD in the upright position. Cardiovascular: Regular rate and rhythm without murmur or gallop. Lungs: Clear to auscultation anteriorly, equal excursion. He remains on O2 support. Abdomen: Soft, nontender, positive bowel sounds. Genitourinary: Not inspected. Patient has been voiding adequate amount documented. Extremities: Have no edema. No clubbing or cyanosis. Neurological: He is alert and oriented x3. Integumentary: Skin is warm and dry. No rashes present. ASSESSMENT AND PLAN: 1. Acute kidney injury on chronic kidney disease stage 3. Patient's baseline creatinine has been 1.2. It has been stable over the last 72 to 48 hours at 1.9. We will check urine electrolytes to determine patient's need for further IV fluid resuscitation. He is currently on normal saline at 75 mL an hour. He remains on cefepime and Zyvox renally dosed. Adequate urine output is documented. We will continue to monitor and follow. 2. Electrolytes and acid-base balance. These are acceptable. 3. Anemia. This is low but stable. 4. Left upper lobe pneumonia. He is currently on renal dosed antibiotics with nebulizers per primary care. 5. Lung cancer. Dr. Webber and the primary care team are following. The patient states he is a DNR level 1. I would like to thank you for allowing us to follow with this patient. Dictated by LIOR Fernández for Shen Luo MD Face to face encounter, data reviewed, discussed with Mile Samuel on 08/08/19. I agree with the above assessment and plan of care. cc: LIOR Fernández MD [facility]
[2019-08-08 08:10] LABS: ALBUMIN 2.6 g/dL (3.5-5.0); CALCIUM 8.1 mg/dL (8.8-10.2); CREATININE 1.7 mg/dL (0.7-1.2); PHOSPHORUS 1.6 mg/dL (2.7-4.5); POTASSIUM 4.7 mmol/L (3.5-5.1)
--- NOTE | 2019-08-08 08:22 | Diag Imaging Result Doc PS360 ---
EXAM: CHEST-2 VIEWS INDICATION: pna TECHNIQUE: 2 views COMPARISON: 08/03/2019 FINDINGS: The left perihilar opacity suggesting pneumonia and possibly an underlying mass is approximately stable. The pleural effusion on the left has grossly resolved. However, there is probably now a trace effusion on the right with adjacent mild right basilar atelectasis and/or infiltrate. The cardiac silhouette is stable. IMPRESSION: Gross resolution of the small left pleural fluid collection but development of a trace effusion with adjacent atelectasis and/or infiltrate at the right lung base. Stable chest, otherwise. Electronically signed by Yosi Cuadra 08/08/2019 8:20 AM
[2019-08-08] MEDS: PULMICORT INH SCH ×2 (08:26→19:31)
[2019-08-08] MEDS: MUCOMYST 20% INH SCH ×2 (08:26→19:31)
[2019-08-08] MEDS: LASIX PO SCH (08:37)
[2019-08-08] MEDS: FLOMAX PO SCH (08:37)
[2019-08-08] MEDS: ICAR-C PO SCH ×2 (08:37→21:02)
[2019-08-08] MEDS: CORTEF PO SCH (08:37)
[2019-08-08] MEDS: MAXIPIME 1 GM in NS 50 ML IV SCH ×2 (08:37→21:02)
[2019-08-08] MEDS: ALDACTONE PO SCH (08:37)
[2019-08-08] MEDS: TOPROL XL PO SCH (08:37)
[2019-08-08] MEDS: PRILOSEC PO SCH (08:37)
[2019-08-08] MEDS: NEURONTIN PO SCH ×3 (08:37→21:02)
[2019-08-08] MEDS: ZYRTEC PO SCH (08:37)
[2019-08-08] MEDS: ASPIRIN EC PO SCH (08:37)
[2019-08-08] MEDS: MS CONTIN PO SCH ×2 (08:52→21:58)
[2019-08-08] MEDS: ZYVOX 600 MG/D5W 600 MG/300 ML IVPB IV SCH ×2 (09:23→21:04)
[2019-08-08] MEDS ORDERED: SODIUM PHOSPHATE 40 MEQ in NS 250 ML IV ONE (10:18)
[2019-08-08] MEDS: LOVENOX SUBQ SCH (14:56)
--- NOTE | 2019-08-08 17:17 | PROGRESS NOTE ---
DATE: 08/08/2019 SUBJECTIVE: Patient has no major complaints. He does seem kind of just weak, tired, poorly motivated. OBJECTIVE: Blood pressure is 116/54, heart rate 90, respiratory 16, temperature 99.2 degrees. Cardiovascular: Regular rate and rhythm. Pulmonary: Bilateral breath sounds clear to auscultation. GI: Was soft, nontender, nondistended. Bowel sounds are positive. LAB: White count is down to 15 which is a great reduction from 31 thousand, hemoglobin and hematocrit 8 and 27, platelets 151,000, creatinine 1.7 which is fairly close to baseline. PROBLEM LIST: 1. Left upper lobe pneumonia. He is on cefepime and Zyvox. Clinically he is improving. He is on decent dose Cortef 20 mg but he seems to be doing better. 2. Chronic obstructive pulmonary disease. He is no longer wheezing, stable. Continue breathing treatments. 3. History of lung cancer. He is stable currently. 4. Diastolic heart failure. Appears to be compensated. DISPOSITION: I anticipate we probably let him go home soon the next 24 hours. His chest x-ray shows improvement. Really not sure what else we need to look at from that standpoint but will continue to monitor. cc: Ke Cao MD
--- NOTE | 2019-08-08 19:21 | NEPHROLOGY PROGRESS NOTE ---
DATE: 08/08/2019 TIME SEEN: 0740 SUBJECTIVE: Mr. Santana is resting quietly in bed. He denies any chest pain. No increased work of breathing. States that he slept well last night. OBJECTIVE: His most recent vital signs: His last temperature 98.2 degrees, blood pressure 116/49, heart rate 85, respirations 16, he is on room air, last recorded saturation is 94%. Intake and Output: He has had 2588 in, 1400 out to void. LABORATORY DATA: Sodium 144, potassium 4.7, chloride 108, CO2 of 26, BUN of 26, creatinine 1.7, his glucose is 102, the patient has an anion gap of 10, his calcium is 8.1, phosphorus 1.6, albumin is 2.6. White count is 15.5, hemoglobin is 8.6, hematocrit is 27.6 with a platelet count of 151,000. PHYSICAL EXAMINATION: This is a 73-year-old white male. He is currently resting quietly in bed head of bed is slightly elevated. He is in no acute distress. Skin is warm and dry.HEENT: Normocephalic, atraumatic. Conjunctiva is pale pink. He has JENNIFER. Mucous membranes are dry. Neck: Supple. Trachea midline. No evidence of JVD. Cardiovascular: He has regular rate and rhythm. He is without murmur or gallop. His lungs are clear to auscultation bilateral with equal excursion. He is on room air. Abdomen is soft, nontender, with positive bowel sounds. Genitourinary: Not inspected. Patient has been voiding. Adequate amount documented. Extremities: Have no edema. No clubbing or cyanosis. Integumentary: Patient has a port to the right chest wall. Neurological: He is alert and oriented x3. ASSESSMENT: 1. Chronic kidney disease, stage 4. The patient's BUN and creatinine have returned to his baseline. He has adequate urine output documented. 2. Electrolytes and acid-base balance. These remain acceptable. 3. Anemia. This is low but stable. 4. Left upper lobe pneumonia. Patient remains on renal-dosed antibiotics with nebulizers and primary care and Pulmonology. 5. Lung cancer. Dr. Webber is following with the primary care team. 6. The patient is a Do Not Resuscitate/Allow Natural level 1. PLAN: We will sign off at this time. Patient has returned back to his historical baseline. No indications for intervention. Please call us at any time during his hospital stay for further monitoring and evaluation. I would like to thank you for allowing us to follow with this patient. Dictated by LIOR Fernández for Shen Luo MD Face to face encounter, data reviewed, discussed with Mile Samuel on 08/08/19. I agree with the above assessment and plan of care. cc: LIOR Fernández MD [facility]
[2019-08-08] MEDS ORDERED: CORTEF PO SCH (21:00)
[2019-08-08] MEDS: LIPITOR PO SCH (21:02)
--- NOTE | 2019-08-08 21:15 | HEMO/ONC PROGRESS NOTE ---
DATE: 08/08/2019 SUBJECTIVE: Mr. Santana is sitting up in his hospital bed. He seems like he is anxious and wants to go home. OBJECTIVE: Vital Signs: Temperature 98.5 degrees, heart rate 65, respirations 18, blood pressure 111/65, O2 saturation 99% on 4 L nasal cannula. Labs and Studies: White blood cells 15.51, hemoglobin 8.6, platelet count 151,000, potassium 4.7, calcium uncorrected is 8.1, corrected calcium is 9.2. Cardiovascular: S1, S2 heard. Respiratory: Coarse breath sounds throughout. He also has some scant wheezing. Gastrointestinal: Abdomen is soft. Positive bowel sounds. Extremities: Some trace peripheral edema. ASSESSMENT AND PLAN: 1. Metastatic lung cancer. Treatment on hold currently. He will be re- evaluated once he is out to determine his candidacy for any further therapy. 2. Left upper lobe pneumonia. Continue per the primary team in regards to his IV antibiotics. Continue nebulizer treatments. Oxygen support. 3. Chronic obstructive pulmonary disease. Severe. Continue supportive care. 4. Anemia. Treatment induced. The patient's hemoglobin is down to 8.6. Continue to monitor. 5. Muscle spasms and muscle jerking. We will go ahead and check electrolytes. May consider scan of his head if does not resolve with electrolyte repletion. We would consider doing all that though as an outpatient. 6. Venous access. Okay to use the patient's port. Dictated by REGLA Paige for Marisol Webber MD cc: Marisol Webber MD I have seen and examined the patient and the above note reflects my history, physical exam, assessment and plan. Marisol TUCKER
[2019-08-09] MEDS: DUONEB (A & A) INH SCH ×4 (03:31→15:40)
[2019-08-09] MEDS: AMBIEN PO SCH (03:58)
[2019-08-09] MEDS: PULMICORT INH SCH (07:22)
[2019-08-09] MEDS: MUCOMYST 20% INH SCH (07:23)
[2019-08-09 07:47] LABS: BASO# 0.03 X1000 (0.0-0.2); BASO% 0.2 % (0.0-0.8); EOS# 0.08 X1000 (0.0-0.7); EOS% 0.6 % (0.0-10.0); HEMATOCRIT 27.7 % (42.0-52.0); HEMOGLOBIN 8.6 g/dL (14.0-18.0); IMM GRAN# 0.49 X1000 (0.0-0.04); IMM GRAN% 3.4 % (0.0-0.5); LYMPH# 1.11 X1000 (1.2-3.4); LYMPH% 7.8 % (20.5-51.1); MCH 32.2 PG (27-31); MCV 103.7 FL (81-99); MONO# 1.63 X1000 (0.11-0.59); MONO% 11.5 % (1.7-9.3); MPV 11.5 FL (7.4-10.4); NEUT# 10.87 X1000 (1.4-6.5); NEUT% 76.5 % (42.2-75.2); PLT 151 X1000 (130-400); RBC 2.67 XMIL (4.7-6.1); WBC 14.21 X1000 (4.8-10.8)
[2019-08-09 07:55] LABS: ALBUMIN 2.6 g/dL (3.5-5.0); CALCIUM 8.5 mg/dL (8.8-10.2); CREATININE 1.5 mg/dL (0.7-1.2); PHOSPHORUS 2.8 mg/dL (2.7-4.5); POTASSIUM 4.3 mmol/L (3.5-5.1)
[2019-08-09] MEDS: ZYVOX 600 MG/D5W 600 MG/300 ML IVPB IV SCH (09:29)
[2019-08-09] MEDS: ALDACTONE PO SCH (09:30)
[2019-08-09] MEDS: FLOMAX PO SCH (09:30)
[2019-08-09] MEDS: NEURONTIN PO SCH ×2 (09:30→17:12)
[2019-08-09] MEDS: ASPIRIN EC PO SCH (09:30)
[2019-08-09] MEDS: ZYRTEC PO SCH (09:30)
[2019-08-09] MEDS: PRILOSEC PO SCH (09:30)
[2019-08-09] MEDS: CORTEF PO SCH (09:30)
[2019-08-09] MEDS: TOPROL XL PO SCH (09:31)
[2019-08-09] MEDS: LASIX PO SCH (09:31)
[2019-08-09] MEDS: ICAR-C PO SCH (09:31)
[2019-08-09] MEDS: MS CONTIN PO SCH (09:31)
[2019-08-09] MEDS: MAXIPIME 1 GM in NS 50 ML IV SCH (09:37)
[2019-08-09 16:00] VITALS: BP 101/68
[2019-08-09] MEDS: LOVENOX SUBQ SCH (17:12)
[2019-08-09 17:14] LABS: UR CREAT RANDOM 52.7 mg/dL (14-26); UR PROT RANDOM 10.7 mg/dL
--- NOTE | 2019-08-10 13:41 | DISCHARGE SUMMARY ---
ADMISSION DATE: 08/02/2019 DISCHARGE DATE: 08/09/2019 DISCHARGE DIAGNOSES: 1. Chronic obstructive pulmonary disease exacerbation. 2. Left upper lobe pneumonia. 3. History of lung cancer. 4. Diastolic heart failure. CONSULTATIONS: 1. Hematology/Oncology. 2. Nephrology. PROCEDURES: None. HISTORY AND HOSPITAL COURSE: Briefly, this is a 73-year-old male with shortness of breath. He had lung cancer and chemo up until about 2 weeks ago. He is usually on 4 to 5 L of oxygen, usually around 4. CAD history, he has had a chambers-colored cough. Anemia. He was placed empirically on antibiotics. He failed outpatient treatment with Levaquin so he did Rocephin and I think added Zyvox. He was very kind of slow to improve. Heme-Onc was consulted. He had metastatic non-small cell cancer that was recurrent. He had a Taxotere round in June, had difficulty with it and he is not planning to do further treatment. He was a DNR 1. He clinically stabilized, slowly improved. He had been on high dose steroids, but he has adrenal insufficiency and he is on hydrocortisone, so he had persistent elevation in his white count. He had been on cefepime and Zyvox. I think Dr. Raygoza was planning to discharge him on the , but he still did not feel very well, but overall he improved, white count had decreased, but again, they had adjusted his blood pressure rx. Renal ultrasound was negative. Nephrology was consulted because of, I guess, some renal insufficiency. His creatinine was 1.2, then it went up to 1.9, at discharge is 1.5. His white count is 14 so the patient felt better on the and I encouraged him to look at being discharged and he was amenable to that, so we proceeded with discharge. DISCHARGE MEDICATIONS: Lipitor 20 at bedtime, aspirin 81 mg, Cortef 20 in the morning and 20 at night. I do not think he needs to be on dexamethasone right now, gabapentin 300 t.i.d., Pearson, Lopressor 25 daily, MS Contin 15 q.12, Prilosec 40 daily, spironolactone 25 daily, Symbicort p.r.n. which should be a scheduled medication, Flomax 0.4 daily, Zyrtec 10 daily, Ceftin 500 q.12 for 7 days, DuoNeb q.6 and Lasix 40 daily. DISCHARGE CONDITION: Stable. FOLLOWUP: We will plan to let him go home, follow up with his primary oncologist and his primary care doctors, Dr. Dave in [place]. His x-ray on the pretty much showed resolution. He still had a little bit of infiltrates in his right base. His saturations were 96% on 4 L. He was afebrile. Lungs sounded clear without coughing or wheezing. TIME SPENT: A 32 minute discharge. cc: Ke Cao MD [facility]
== END 2019-08-09 18:41 | disposition home or self-care (01) | DRG 178 ==
LOC: SUPCPDRO → ED 09:19 → SUATTDRO 13:06 → EDIPHOLD 13:06 → 3N 20:01
PROVIDERS: ATTEND Internal Medicine

== ENCOUNTER 2019-10-06 08:27 | Inpatient (IN) ==
[2019-10-06] MEDS ORDERED: DUONEB (A & A) INH ONE (08:44)
[2019-10-06] MEDS ORDERED: NS 1,000 ML IV ONE ×2 (08:44)
[2019-10-06] MEDS ORDERED: SOLU-MEDROL IV ONE (08:44)
[2019-10-06] MEDS ORDERED: VANCOMYCIN 1 GM/NS 1 GM/250 ML IVPB IV ONE (08:44)
[2019-10-06] MEDS ORDERED: LEVAQUIN 750 MG/D5W 750 MG/150 ML IVPB IV ONE (08:44)
[2019-10-06] MEDS ORDERED: ZOSYN 4.5 GM in NS 100 ML IV ONE (08:44)
[2019-10-06] MEDS ORDERED: SOLU-CORTEF IV ONE (08:46)
--- NOTE | 2019-10-06 08:53 | EKG Report ---
Test Performed on : 10/06/2019 08:45:45 AM Test Reason : sob Blood Pressure : / mmHG Vent. Rate : 091 BPM Atrial Rate : 091 BPM P-R Int : 142 ms QRS Dur : 072 ms QT Int : 342 ms P-R-T Axes : 057 028 076 degrees QTc Int : 420 ms Sinus rhythm. with sinus arrhythmia. with occasional premature ventricular complexes. Cannot rule out Anterior infarct (cited on or before 29-MAR-2019) Abnormal ECG When compared with ECG of 02-AUG-2019 09:39, premature ventricular complexes. are now present Unconfirmed Result
--- NOTE | 2019-10-06 09:02 | Diag Imaging Result Doc PS360 ---
EXAM: CHEST-1 VIEW INDICATION: sob TECHNIQUE: One view COMPARISON: 08/08/2019 FINDINGS: The right chest port is in stable position. There is stable elevation of the left hemidiaphragm. There is no discrete pleural fluid collection or pneumothorax. There is a stable left perihilar masslike opacity. There is a known left hilar neoplasm. Right lung is grossly clear. Cardiac silhouette is unremarkable. IMPRESSION: Stable masslike opacity in the left perihilar region. Electronically signed by Yosi Cuadra 10/06/2019 9:00 AM
[2019-10-06 09:09] LABS: ALLEN TEST YES; BE 5.1 mmoll (-3.0-3.0); BLOOD TYPE ARTERIAL; HCO3-(ACT) 28.7 mmoll (20.0-26.0); METHB 0.5 % (0.0-1.5); O2(CT) 11.6 mL/dL (15.0-23.0); PCO2(98.6) 44 mmHg (35-45); SAMPLE BLOOD; SAO2 86.4 % (95.0-100.0); THB 9.8 g/dL (11.5-17.4); pH(98.6) 7.44 (7.35-7.45)
[2019-10-06 09:15] LABS: PO2(98.6) 47 mmHg (60-100)
[2019-10-06 09:16] LABS: O2HB 83.9 % (95.0-99.0)
[2019-10-06 09:19] LABS: MODALITY CANNULA
[2019-10-06 09:46] LABS: INR 1.05; PROTIME 13.8 Seconds (11.0-16.0)
[2019-10-06 09:47] LABS: PTT 40.9 Seconds (22.3-41.8)
[2019-10-06 09:53] LABS: BASO# 0.08 X1000 (0.0-0.2); BASO% 0.8 % (0.0-0.8); EOS# 0.04 X1000 (0.0-0.7); EOS% 0.4 % (0.0-10.0); IMM GRAN% 5.2 % (0.0-0.5); LYMPH# 0.93 X1000 (1.2-3.4); LYMPH% 9.7 % (20.5-51.1); MCH 30.9 PG (27-31); MCV 103.1 FL (81-99); MPV 10.2 FL (7.4-10.4); NEUT# 5.89 X1000 (1.4-6.5); NEUT% 61.9 % (42.2-75.2); PLT 284 X1000 (130-400); RBC 2.91 XMIL (4.7-6.1); RDW 17.8 % (11.5-14.5); WBC 9.54 X1000 (4.8-10.8)
[2019-10-06 10:24] LABS: ANISOCYTOSIS 1+; BANDS 4 % (0-1); EOS 2 % (1-10); HYPOCHROM 1+; LYMPHS 6 % (21-51); MONO 20 % (1-9); NRBC 1 % (0-0); POIKILOCYTOSIS 1+; SEGS 58 % (42-75)
[2019-10-06 10:25] LABS: LARGE PLATELETS 1+
[2019-10-06 10:33] LABS: ALB/GLOB RATIO 1.6; ALBUMIN 3.3 g/dL (3.5-5.0); CALCIUM 9.3 mg/dL (8.8-10.2); CREATININE 1.8 mg/dL (0.7-1.2); TOTAL BILIRUBIN 0.21 mg/dL (0.20-1.00); TOTAL PROTEIN 5.4 g/dL (6.3-8.3)
[2019-10-06] MEDS ORDERED: LOVENOX 1 MG/KG SUBQ ONE (12:07)
[2019-10-06] MEDS ORDERED: LASIX IV ONE (12:09)
--- NOTE | 2019-10-06 12:10 | Diag Imaging Result Doc PS360 ---
CT ANGIOGRM PULMONARY ARTERIES - 10/06/2019 INDICATION: sob, hypoxia TECHNIQUE: Axial CT images were obtained after administering intravenous contrast. Coronal MIP images were generated. COMPARISON: 04/27/2017 FINDINGS: There is a right chest port in good position. There is been overall some decrease in the left hilar adenopathy. There is stable near complete consolidation of the left upper lobe with significant collapse. There is a small left basilar pleural effusion. There are numerous large pulmonary emboli involving every lobe of the right lung and probably a couple in the left lower lobe as well. There is cardiomegaly. There is probably diffuse interstitial pulmonary edema. Upper abdominal images are grossly normal. There are moderate degenerative changes of the spine. No acute or suspicious bony lesion. IMPRESSION: 1. Numerous pulmonary emboli bilaterally. 2. Slight improvement in the left hilar adenopathy. Stable severe collapse/consolidation of the left upper lobe. 3. Small left pleural effusion. 4. This report was discussed with Dr. Naylor on 10/06/2019 at 12:07 PM and was readback. This exam was performed using automated exposure control, adjustment of mA or kV according to patient size, and/or use of iterative reconstruction technique Electronically signed by Hansel Renee 10/06/2019 12:07 PM
--- NOTE | 2019-10-06 12:22 | PROVIDER DOCUMENTATION ---
This chart was entered by Maria D Melendez Scribe, acting as scribe for Mukund Naylor MD. HPI-Respiratory General - General Chief Complaint: SEPSIS ALERT - D Stated Complaint: [facility] WALKED PT HERE LOW O2 Time Seen by Provider: 10/06/19 08:36 Source: patient Allergies/Adverse Reactions: Patient Allergies Allergy/AdvReac Type Severity Reaction Status Date / Time Iodine and Iodide Containing Allergy ANAPHYLAXIS Verified 03/29/19 09:18 Produc shellfish derived Allergy ANAPHYLAXIS Verified 03/29/19 09:18 Home Medications: Home Medication List Medication Instructions Recorded Confirmed Last Taken Type ATORVAstatin [Lipitor] 20 mg PO QHS 04/12/17 08/02/19 06/28/17 21:00 History Gabapentin 1 cap PO TID 03/29/19 08/02/19 Unknown History Hydrocortisone [Cortef] 2 tab PO DIRECTED 03/29/19 08/02/19 Unknown History Metoprolol [Lopressor] 0.5 tab PO DAILY 03/29/19 08/02/19 Unknown History Morphine Sulfate [Morphine Sulfate 1 tab PO Q12H 03/29/19 08/02/19 Unknown History ER] Tamsulosin HCl 1 cap PO DAILY 03/29/19 08/02/19 Unknown History Furosemide [Lasix] 40 mg PO DAILY #30 tab 04/03/19 08/02/19 Unknown Rx Aspirin [Aspirin EC] 81 mg PO DAILY 08/02/19 08/02/19 Unknown History Budesonide/Formoterol Fumarate 1 inh INH BID PRN 08/02/19 08/02/19 Unknown History [Symbicort 160-4.5 Mcg Inhaler] Cetirizine HCl [Zyrtec] 10 mg PO DAILY 08/02/19 08/02/19 Unknown History Hydrocodone/Acetaminophen 1 tab PO Q6H PRN 08/02/19 08/02/19 Unknown History [Hydrocodone-Acetamin 10-325 mg] Omeprazole 40 mg PO DAILY 08/02/19 08/02/19 Unknown History Spironolactone 25 mg PO DAILY 08/02/19 08/02/19 Unknown History Albuterol 2.5MG/Ipratrop 0.5MG 3 ml INH RTQ6H #120 neb 08/09/19 Unknown Rx [Duoneb] CefUROXIME [Ceftin] 500 mg PO Q12HR #14 tab 08/09/19 Unknown Rx - History of Present Illness-Resp Nature of Presenting Problem: Patient is a 73 year old male who presents with shortness of breath. States having a productive cough with shortness of breath. Reports he is currently having chemo treatments for lung cancer with mets. States he is usually on 3 L of oxygen but had to be increased to 5 L this am. Reports having a chemo treatment this morning. Does not report chest pain. Quality of Pain: reports: none Severity in ED: reports: mild Onset/Duration: reports: gradual Timing: reports: still present, getting worse Cough Quality/Degree: reports: moderate, productive cough, sputum (roy) Associated Symptoms: reports: cough, shortness of breath Similar Symptoms Previously?: Yes Recently seen or treated by another doctor?: Yes Review of Systems - Adult - REVIEW OF SYSTEMS - ADULT Constitutional: reports: no symptoms reported. denies: chills, fever, fatique Eyes: reports: no symptoms reported Ears, Nose, Mouth & Throat: reports: no symptoms reported Cardiovascular: reports: no symptoms reported Respiratory: reports: see HPI, cough, shortness of breath. denies: wheezing Gastrointestinal: reports: no symptoms reported Genitourinary: reports: no symptoms reported Musculoskeletal: reports: no symptoms reported Integumentary: reports: no symptoms reported Neurological: reports: no symptoms reported Psychiatric: reports: no symptoms reported Endocrine: reports: no symptoms reported Hematologic/Lymphatic: reports: no symptoms reported Allergic/Immunologic: reports: no symptoms reported All Other Systems: Reviewed and Negative Past History - Adult - PAST MEDICAL HISTORY-ADULT Review of Records: reports: Old Records Reviewed, Nursing Assessment Review, Medications Reviewed, Social history reviewed & non-contributory. Major Childhood Illnesses: reports: denies history Cardiovascular: reports: CHF, HTN, hyperlipidemia, [place] Respiratory: reports: asthma, COPD, cancer (lung) Gastrointestinal: reports: denies history Obstetrical/Gynecological: reports: denies history Genitourinary: reports: kidney disease Musculoskeletal: reports: denies history Neurological: reports: denies history Endocrine/Immune: reports: denies history Other Conditions: reports: denies history - PRIOR SURGERIES/PROCEDURES Surgical/Procedure History: reports: cardiac stent (x5), other (cataract) - IMMUNIZATION STATUS Childhood Immunizations: See Nurse Assessment Flu Vaccine: See Nurse Assessment - FAMILY HISTORY Family History: reviewed, not pertinent - SOCIAL HISTORY Smoking: cigarettes (former) Substance Use: denies Physical Exam-General - PHYSICAL EXAM-ADULT Initial Vital Signs Reviewed: Yes - CONSTITUTIONAL General Appearance: alert, no apparent distress. negative: lethargic - RESPIRATORY Respiratory: respiratory distress (mild), rhonchi (bilaterally), wheezing (bilaterally), increased rate, other (port to right side chest). negative: accessory muscle use - CARDIOVASCULAR Cardiovascular: normal peripheral pulses, regular rate, rhythm. negative: tachycardia - GASTROINTESTINAL (ABDOMEN) Abdominal Exam: normal bowel sounds, non tender, soft. negative: guarding, rebound - MUSCULOSKELETAL Extremity: normal inspection. negative: deformity, erythema - SKIN Integumentary: normal turgor, pallor. negative: cyanosis, rash - NEUROLOGIC Neurologic: grossly normal. negative: aphasia, facial droop - PSYCHIATRIC Psych/Mental Status: normal mood/affect, oriented x 3. negative: anxious Progress - PLAN OF CARE/RESULTS Progress/Plan/Lab Results: Vital Signs - 8 hr 10/06/19 08:29 10/06/19 10:47 Temperature 98.2 F Pulse Rate 99 H 84 Respiratory Rate 25 H 19 Blood Pressure 104/71 146/85 O2 Sat by Pulse Oximetry 81 L 94 L Laboratory Results - last 24 hr 10/06/19 10/06/19 10/06/19 09:00 09:13 09:13 WBC 9.54 RBC 2.91 L Hgb 9.0 L Hct 30.0 L MCV 103.1 H MCH 30.9 MCHC 30.0 L RDW Std Deviation 17.8 H Plt Count 284 MPV 10.2 Immature Gran % (Auto) 5.2 H Neut % (Auto) 61.9 Lymph % (Auto) 9.7 L [place] % (Auto) 22.0 H Eos % (Auto) 0.4 Baso % (Auto) 0.8 Immature Gran # (Auto) 0.50 H Neut # (Auto) 5.89 Lymph # (Auto) 0.93 L [place] # (Auto) 2.10 H Eos # (Auto) 0.04 Baso # (Auto) 0.08 Segmented Neutrophils 58 Band Neutrophils 4 H Lymphocytes 6 L Monocytes 20 H Eosinophils 2 Myelocytes 6.0 Nucleated RBCs 1 H Atypical Lymphocytes 4.0 Hypochromia 1+ Large Platelets 1+ Poikilocytosis 1+ Anisocytosis 1+ PT INR PTT (Actin FS) Specimen Type ARTERIAL Sample Site R RADIAL pH 7.44 pCO2 44 pO2 47 L* HCO3 28.7 H Base Excess 5.1 H Oxyhemoglobin 83.9 L* ABG O2 Sat (Calculated) 11.6 L ABG O2 Saturation 86.4 L ABG Carboxyhemoglobin 2.40 ABG Methemoglobin 0.5 Zach Test YES A-a O2 Difference 155.0 Total Hemoglobin 9.8 L Lactate 1.50 Liter Flow 4.0 Blood Gas Modality CANNULA FiO2 % 36.0 Sodium 141 Potassium 4.0 Chloride 98 Carbon Dioxide 28 Anion Gap 15 BUN 27 H Creatinine 1.8 H Estimated GFR/1.73 m2 37 BUN/Creatinine Ratio 15 Glucose 158 H Calculated Osmolality 290 Calcium 9.3 Total Bilirubin 0.21 AST 14 ALT 9 L Alkaline Phosphatase 70 Creatine Kinase 50 Troponin T Bdf-L-Xgdljhnvnri Pept Total Protein 5.4 L Albumin 3.3 L Globulin 2.1 Albumin/Globulin Ratio 1.6 Plasma Lactate 10/06/19 10/06/19 10/06/19 09:13 09:13 09:13 WBC RBC Hgb Hct MCV MCH MCHC RDW Std Deviation Plt Count MPV Immature Gran % (Auto) Neut % (Auto) Lymph % (Auto) [place] % (Auto) Eos % (Auto) Baso % (Auto) Immature Gran # (Auto) Neut # (Auto) Lymph # (Auto) [place] # (Auto) Eos # (Auto) Baso # (Auto) Segmented Neutrophils Band Neutrophils Lymphocytes Monocytes Eosinophils Myelocytes Nucleated RBCs Atypical Lymphocytes Hypochromia Large Platelets Poikilocytosis Anisocytosis PT 13.8 INR 1.05 PTT (Actin FS) 40.9 Specimen Type Sample Site pH pCO2 pO2 HCO3 Base Excess Oxyhemoglobin ABG O2 Sat (Calculated) ABG O2 Saturation ABG Carboxyhemoglobin ABG Methemoglobin Zach Test A-a O2 Difference Total Hemoglobin Lactate Liter Flow Blood Gas Modality FiO2 % Sodium Potassium Chloride Carbon Dioxide Anion Gap BUN Creatinine Estimated GFR/1.73 m2 BUN/Creatinine Ratio Glucose Calculated Osmolality Calcium Total Bilirubin AST ALT Alkaline Phosphatase Creatine Kinase Troponin T 0.047 Azr-O-Oaisvxubzdl Pept 1743 H Total Protein Albumin Globulin Albumin/Globulin Ratio Plasma Lactate 10/06/19 09:13 WBC RBC Hgb Hct MCV MCH MCHC RDW Std Deviation Plt Count MPV Immature Gran % (Auto) Neut % (Auto) Lymph % (Auto) [place] % (Auto) Eos % (Auto) Baso % (Auto) Immature Gran # (Auto) Neut # (Auto) Lymph # (Auto) [place] # (Auto) Eos # (Auto) Baso # (Auto) Segmented Neutrophils Band Neutrophils Lymphocytes Monocytes Eosinophils Myelocytes Nucleated RBCs Atypical Lymphocytes Hypochromia Large Platelets Poikilocytosis Anisocytosis PT INR PTT (Actin FS) Specimen Type Sample Site pH pCO2 pO2 HCO3 Base Excess Oxyhemoglobin ABG O2 Sat (Calculated) ABG O2 Saturation ABG Carboxyhemoglobin ABG Methemoglobin Zach Test A-a O2 Difference Total Hemoglobin Lactate Liter Flow Blood Gas Modality FiO2 % Sodium Potassium Chloride Carbon Dioxide Anion Gap BUN Creatinine Estimated GFR/1.73 m2 BUN/Creatinine Ratio Glucose Calculated Osmolality Calcium Total Bilirubin AST ALT Alkaline Phosphatase Creatine Kinase Troponin T Ruu-K-Obmuienalwn Pept Total Protein Albumin Globulin Albumin/Globulin Ratio Plasma Lactate 1.4 Orders Category Date Time Status Cardiac Monitoring DIRECTED Care 10/06/19 08:34 Active IV Insertion ORDERED Care 10/06/19 08:34 Active Notify MD of + Sepsis Screen NOW Care 10/06/19 08:34 Active Notify Physician As Ordered Care 10/06/19 08:34 Active CHEST-1 VIEW [RAD] Stat Exams 10/06/19 08:34 Completed CTA [CT ANGIOGRM PULMONARY ARTERIES] [CT] Stat Exams 10/06/19 09:46 Taken ABG [RESP] Routine Lab 10/06/19 09:00 Completed BLOOD CULTURE [BLDCUL] Stat Lab 10/06/19 09:24 Results CBC WITH DIFF [HEME] Stat Lab 10/06/19 09:13 Completed CK PROFILE [SP CHEM] Stat Lab 10/06/19 09:13 Completed COMPREHENSIVE METABOLIC PANEL [CHEM] Stat Lab 10/06/19 09:13 Completed LACTATE, PLASMA [CHEM] Lab 10/06/19 09:13 Completed LACTATE, PLASMA [CHEM] Lab 10/06/19 11:45 Uncollected LACTATE, PLASMA [CHEM] Lab 10/06/19 14:45 Uncollected PRO B-NATRIURETIC PEPTIDE Stat Lab 10/06/19 09:13 Completed PROTIME WITH INR [COAG] Stat Lab 10/06/19 09:13 Completed PTT [COAG] Stat Lab 10/06/19 09:13 Completed TROPONIN T Stat Lab 10/06/19 09:13 Completed URINALYSIS W/POSS RFLX CULT [URINALYSIS] Stat Lab 10/06/19 08:34 Uncollected 0.9% Sodium Chloride Inj [Ns] 1,000 ml Med 10/06/19 08:44 Discontinued IV 999 mls/hr 0.9% Sodium Chloride Inj [Ns] 1,000 ml Med 10/06/19 08:44 Discontinued IV 999 mls/hr Albuterol 2.5MG/Ipratrop 0.5MG [Duoneb (A & A)] Med 10/06/19 08:44 Discontinued 9 ml INH NOW ONE Enoxaparin 1 mg/kg [Lovenox 1 mg/kg] Med 10/06/19 12:07 Discontinued 1 each SUBQ NOW ONE Enoxaparin [Lovenox] Med 10/06/19 12:30 Once 80 mg SUBQ NOW ONE Furosemide [Lasix] Med 10/06/19 12:09 Once 80 mg IV NOW ONE Hydrocortisone Sod Succinate [Solu-Cortef] Med 10/06/19 08:46 Discontinued 100 mg IV NOW ONE Levofloxacin 750 mg/D5w [Levaquin 750 mg/D5w] Med 10/06/19 08:44 Discontinued 750 mg in 150 ml IV NOW Methylprednisolone Sod Succ [Solu-Medrol] Med 10/06/19 08:44 Discontinued 125 mg IV NOW ONE Piperacillin/Tazobactam [Zosyn] 4.5 gm Med 10/06/19 08:44 Discontinued 0.9% Sodium Chloride Inj [Ns] 100 ml IV NOW Vancomycin 1 gm/Ns Med 10/06/19 08:44 Discontinued 1 gm in 250 ml IV NOW Aerosol Treatments Routine Oth 10/06/19 08:45 Completed Aerosol Treatments Stat Oth 10/06/19 08:45 Completed Oxygen Device Stat Oth 10/06/19 08:34 Completed EKG [EKG] Stat Ther 10/06/19 08:45 Draft Result Diagrams: 10/06/19 09:13 10/06/19 09:13 - REASSESSMENT Reassessment #1 Time Reassessed: 12:10 Status: improving (Patient initially treated with neb treatments, steroids/antibiotics for presumed sepsis due to PNE, however, as symptoms did not improve and he continued to by hypoxemic, we ordered CTA and discovered multiple, extensive bilateral pulmonary emboli. Patient given lovenox.) Reassessment Comment: patient requiring 100% NRB to maintain sats - EKG 1 Time of EKG reading by physician:: 08:45 EKG Read and Signed by:: Mukund Naylor EKG Interpretation (*Must complete 3 of following elements*): Abnormal (rhythm - sinus rhythm with sinus arrhythmia with occasional premature ventricular complexes) Rate: 91 [place]: normal [place] Interval: normal Comments: cannot rule out anterior infarct, age undetermined - XRAY 1 XRAY Study: Chest Impression: Abnormal (XAM: CHEST-1 VIEW INDICATION: sob TECHNIQUE: One view COMPARISON: 08/08/2019 FINDINGS: The right chest port is in stable position. There is stable elevation of the left hemidiaphragm. There is no discrete pleural fluid collection or pneumothorax. There is a stable left perihilar masslike opacity. There is a known left hilar neoplasm. Right lung is grossly clear. Cardiac silhouette is unremarkable. IMPRESSION: Stable masslike opacity in the left perihilar region. Electronically signed by Yosi Cuadra 10/06/2019 9:00 AM 10/06/19 09 Interpreting Physician: Yosi Cuadra MD Dictated Date/Time: 10/06/19 0856 cc: Mukund Naylor MD; None,PCP), See EMR Report ( EXAM: CHEST-1 VIEW INDICATION: sob TECHNIQUE: One view COMPARISON: 08/08/2019 FINDINGS: The right chest port is in stable position. There is stable elevation of the left hemidiaphragm. There is no discrete pleural fluid collection or pneumothorax. There is a stable left perihilar masslike opacity. There is a known left hilar neoplasm. Right lung is grossly clear. Cardiac silhouette is unremarkable. IMPRESSION: Stable masslike opacity in the left perihilar region. Electronically signed by Yosi Cuadra 10/06/2019 9:00 AM 10/06/19 0900 Interpreting Physician: Yosi Cuadra MD Dictated Date/Time: 10/06/19 0856 cc: Mukund Naylor MD; None,PCP) - CT/MRI 1 CT Study: Angiogram Impression: Abnormal ( CT ANGIOGRM PULMONARY ARTERIES - 10/06/2019 INDICATION: sob, hypoxia TECHNIQUE: Axial CT images were obtained after administering intravenous contrast. Coronal MIP images were generated. COMPARISON: 04/27/2017 FINDINGS: There is a right chest port in good position. There is been overall some decrease in the left hilar adenopathy. There is stable near complete consolidation of the left upper lobe with significant collapse. There is a small left basilar pleural effusion. There are numerous large pulmonary emboli involving every lobe of the right lung and probably a couple in the left lower lobe as well. There is cardiomegaly. There is probably diffuse interstitial pulmonary edema. Upper abdominal images are grossly normal. There are moderate degenerative changes of the spine. No acute or suspicious bony lesion. IMPRESSION: 1. Numerous pulmonary emboli bilaterally. 2. Slight improvement in the left hilar adenopathy. Stable severe collapse/consolidation of the left upper lobe. 3. Small left pleural effusion. 4. This report was discussed with Dr. Naylor on 10/06/2019 at 12:07 PM and was readback. This exam was performed using automated exposure control, adjustment of mA or kV according to patient size, and/or use of iterative reconstruction technique Electronically signed by Hansel Renee 10/06/2019 12:07 PM 10/06/19 1207 Interpreting Physician: Hansel Renee MD Dictated Date/Time: 10/06/19 1150 cc: Mukund Naylor MD; None,PCP), Discussed w/Radiology (Víctor, multiple bilateral PEs, heavy clot burden) - CONSULTS/PCP/HOSPITALIST Notification #1 *Consult/PCP/Hospitalist*: Dr. Renee (radiology) Time Discussed: 12:08 Reason/Comments: Dr. Naylor consulted with Dr. Renee about patient's CT. Consult Disposition: other (Dr. Renee states patient's CT shows multiple PE) #2 Consult: LIOR Drew Time Discussed: 12:12 Consult Disposition: Will see in ED, Admit Departure - Departure Date of Disposition Decision: 10/06/19 Time of Disposition Decision: 12:12 DIAGNOSIS: Pulmonary embolism, bilateral, Hypoxemia requiring supplemental oxygen Lung cancer Qualifiers: Laterality: left Lung location: hilum of lung Qualified Code(s): C34.02 - Malignant neoplasm of left main bronchus COPD (chronic obstructive pulmonary disease) Qualifiers: COPD type: emphysema Emphysema type: panlobular Qualified Code(s): J43.1 - [place] lobular emphysema Disposition: ADMITTED INPATIENT 09 Certified Medical Emergency: Emergent Condition: Critical Referrals and Follow-Ups: None,PCP [Primary Care Provider] - - Critical Care Note This patient required my direct & personal management of CC.: Yes Total Time (mins): 45 (RESP system required multiple interventions) Critical Care Statement: This patient required my direct personal management to treat or rule out processes, the absence of which, could potentiallly result in sudden, clinically significant life or limb threatening deterioration. Attestation - Physician/ DANY Attestation Patient care was provided by Advanced Practice Provider:: No The physician spent face to face time with patient:: Yes Advanced Practice Provider documentation review:: Supervising physician onsite and consulted in the evaluation and care of this patient. The physician did have a face to face encounter with the patient. This chart was documented by the indicated scribe, (Maria D Melendez Scribe) and accurately reflects the services I performed and decisions made by me, Mukund Naylor MD, as attested by the provider's signature.
[2019-10-06] MEDS ORDERED: LOVENOX SUBQ ONE (12:30)
[2019-10-06 15:16] LABS: URINE SOURCE CATH
[2019-10-06 15:20] LABS: BILIRUBIN URINE NEGATIVE (NEGATIVE); BLOOD URINE NEGATIVE (NEGATIVE); COLOR STRAW; GLUCOSE URINE NEGATIVE (NEGATIVE); KETONE URINE NEGATIVE (NEGATIVE); LEUKOCYTES URINE NEGATIVE (NEGATIVE); NITRITE URINE NEGATIVE (NEGATIVE); PH URINE 6.5; PROTEIN URINE NEGATIVE (NEGATIVE); SP GRAVITY URINE 1.017; TURBIDITY URINE CLEAR (CLEAR); UR EPITHELIAL CELLS <10 /HPF (<10); URINE BACTERIA NEGATIVE /HPF; URINE RBC <10 /HPF (<10); URINE WBC <10 /HPF (<10); UROBILINOGEN URINE NORMAL (NORMAL)
[2019-10-06] MEDS ORDERED: TYLENOL PO PRN (16:18)
[2019-10-06] MEDS ORDERED: ZOFRAN IV PRN (16:18)
[2019-10-06 16:49] LABS: ALLEN TEST YES; BLOOD TYPE ARTERIAL; HCO3-(ACT) 28.8 mmoll (20.0-26.0); O2HB 96.9 % (95.0-99.0); PCO2(98.6) 45 mmHg (35-45); PO2(98.6) 138 mmHg (60-100); SAMPLE BLOOD; SAO2 99.5 % (95.0-100.0); THB 9.3 g/dL (11.5-17.4); pH(98.6) 7.43 (7.35-7.45)
[2019-10-06 16:50] LABS: MODALITY NRB
--- NOTE | 2019-10-06 19:56 | HISTORY AND PHYSICAL ---
PRIMARY CARE PROVIDER: Ez Dave MD ONCOLOGIST: Marisol Webber MD CHIEF COMPLAINT: Shortness of breath and hypoxia. HISTORY OF PRESENT ILLNESS: Mr. Santana is a 73-year-old male who is known to Dr. 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 He was short of breath. They checked his oxygenation. It was low. They were unable to bring him up, so he was brought over to the ED, where he was found to be hypoxic and hypercarbic. Other history: COPD on home O2, hypertension, hyperlipidemia, arthritis, BPH, adrenal insufficiency, chronic diastolic heart failure, chronic pain syndrome, on chronic opioid use, history of MS, abdominal aortic aneurysm, skin cancer with previous radiation to the nose. Further workup in the ED revealed bilateral pulmonary emboli. He was given full-dose Lovenox and will be admitted to the ICU for further evaluation and treatment. He is now breathing well on a nonrebreather. PAST MEDICAL HISTORY: Per HPI. PAST SURGICAL HISTORY: Cardiac stents x5 in 2010, port placement, bilateral cataract surgery, esophageal dilatation secondary to dysphagia, ERCP with stent, abdominal aortic aneurysm repair, hernia repair in the . SOCIAL HISTORY: He stopped smoking 9 months ago, but smoked for 50 years a pack and a half per day. No alcohol. He just drinks socially in the past. No illicit drug use. He is a retired warehouse receiver from 2000. FAMILY HISTORY: Mother at the age of 84 secondary to stroke. Father at the age of 44 secondary to Hodgkin lymphoma. He has 2 children who are healthy. ALLERGIES: Iodine contrast and shellfish. MEDICATIONS: Home medications are being reconciled. REVIEW OF SYSTEMS: Twelve-point review of systems completed and negative except for those mentioned in HPI. PHYSICAL EXAMINATION: VITAL SIGNS: Temperature 98.2 degrees, heart rate 88, respirations 16, blood pressure 128/80, O2 is 95% on a nonrebreather. GENERAL: Mr. Santana is a pleasant 73-year-old gentleman who is sitting up in the bed and in no acute distress. HEENT: Atraumatic, normocephalic. PERRL. NECK: Supple. Trachea midline. CARDIOVASCULAR: S1, S2 appreciated. No murmurs, gallops or rubs noted. RESPIRATORY: Lung sounds, scattered rhonchi throughout all lung bases. No wheezes. GASTROINTESTINAL: Soft, nontender, nondistended. Positive bowel sounds x4 quadrants. EXTREMITIES: Lower extremity generalized edema. NEUROLOGIC: No focal deficits noted. DIAGNOSTIC DATA: Pulmonary arteriogram: Numerous PEs bilaterally. Slight improvement of the left hilar adenopathy. Stable severe collapse consolidation in the left upper lobe. Small left pleural effusion. LABORATORY DATA: White count 9, hemoglobin and hematocrit of 9 and 30, platelet count of 284,000. ABG pH 7.44, pCO2 of 44, pO2 of 47, bicarbonate 28, base excess of 5.1, oxyhemoglobin is 83, O2 saturation 86% on 4 L nasal cannula. Sodium 141, potassium 4, BUN 27, creatinine 1.8, blood glucose is 158. ProBNP 1743. Urinalysis is negative. ASSESSMENT AND PLAN: 1. Acute hypoxemic hypercarbic respiratory failure secondary to bilateral pulmonary emboli. He is oxygenating well now on a nonrebreather. We will recheck an arterial blood gas now. 2. Chronic obstructive pulmonary disease, on home oxygen. We will continue with bronchodilators, aggressive pulmonary toilet and supplemental oxygen. 3. Known metastatic recurrent [id number]-[id number] lung cancer. 4. Anemia, hemodynamically stable. 5. Chronic kidney disease, appears to be above baseline. We will continue with intravenous hydration. Recheck in the a.m. 6. Chronic pain syndrome. We will continue home medications when reconciled. 7. History of coronary artery disease status post myocardial infarction and stenting. 8. Abdominal aortic aneurysm repair in the past. 9. Chronic diastolic heart failure. Does not appear to be in exacerbation. 10. Further recommendation to follow physician evaluation, laboratory and diagnostic data. Dictated by LIOR Wilkinson for Remi Xiong MD Patient seen and examined by me face to face, all the laboratory, vitals signs and images were reviewed, patient presented to the Emergency department hypoxemic even though he is on home oxygen, Patient went to the Cancer center today and was found to be hypoxemic, he presented to the ED and the CT angiogram showed bilateral pulmonary emboli, on my exam he has no respiratory distress, rhonchi bilaterally, lower extremity edema, which is chronic, He will be admitted to [facility], telemetry, he will be placed on Lovenox 1 mg x kilogram twice a day, monitor the patient closely, I agree with the CIVIL CELEBRANT's assessment and plan, Remi Corona MD. cc: MD Ez Armstrong MD MTDD
[2019-10-06] MEDS ORDERED: NORCO-10 PO PRN (23:56)
[2019-10-07] MEDS ORDERED: LOVENOX 1 MG/KG SUBQ ONE (00:30)
[2019-10-07] MEDS: MS CONTIN PO SCH ×3 (01:33→23:39)
[2019-10-07] MEDS ORDERED: LOVENOX SUBQ ONE (01:45)
--- NOTE | 2019-10-07 06:00 | EKG Report ---
Test Performed on : 10/07/2019 05:26:07 AM Test Reason : chest pain Blood Pressure : / mmHG Vent. Rate : 073 BPM Atrial Rate : 073 BPM P-R Int : 146 ms QRS Dur : 078 ms QT Int : 400 ms P-R-T Axes : 087 064 089 degrees QTc Int : 440 ms Sinus rhythm. with premature atrial complexes. Septal infarct (cited on or before 29-MAR-2019) Abnormal ECG When compared with ECG of 06-OCT-2019 08:45, (Unconfirmed) premature ventricular complexes. are no longer present premature atrial complexes. are now present Unconfirmed Result
[2019-10-07] MEDS: PRILOSEC PO SCH (06:43)
[2019-10-07 06:49] LABS: BASO# 0.02 X1000 (0.0-0.2); BASO% 0.2 % (0.0-0.8); HEMATOCRIT 29.3 % (42.0-52.0); HEMOGLOBIN 8.8 g/dL (14.0-18.0); IMM GRAN# 0.28 X1000 (0.0-0.04); IMM GRAN% 2.6 % (0.0-0.5); LYMPH# 0.62 X1000 (1.2-3.4); LYMPH% 5.9 % (20.5-51.1); MCV 103.2 FL (81-99); MONO# 1.24 X1000 (0.11-0.59); MONO% 11.7 % (1.7-9.3); MPV 10.6 FL (7.4-10.4); NEUT# 8.41 X1000 (1.4-6.5); NEUT% 79.6 % (42.2-75.2); PLT 259 X1000 (130-400); RBC 2.84 XMIL (4.7-6.1); RDW 17.8 % (11.5-14.5); WBC 10.57 X1000 (4.8-10.8)
[2019-10-07 07:27] LABS: ALB/GLOB RATIO 1.1; CALCIUM 9.5 mg/dL (8.8-10.2); CREATININE 1.7 mg/dL (0.7-1.2); MAGNESIUM 1.7 mg/dL (1.5-2.7); POTASSIUM 3.9 mmol/L (3.5-5.1); TOTAL BILIRUBIN 0.15 mg/dL (0.20-1.00); TOTAL PROTEIN 5.8 g/dL (6.3-8.3)
[2019-10-07] MEDS: SYMBICORT 160/4.5 MICROGM INHALER INH SCH ×2 (08:19→19:51)
--- NOTE | 2019-10-07 08:49 | Diag Imaging Result Doc PS360 ---
CHEST-PORTABLE - 10/07/2019 INDICATION: PE COMPARISON: 10/06/2019 FINDINGS: Stable right chest port in good position. There has been increased density of the extensive collapse of the left upper lobe. The right lung remains grossly clear. Heart size is borderline. IMPRESSION: Increased collapse of the left upper lobe. Otherwise no change from prior. Electronically signed by Hansel Renee 10/07/2019 8:47 AM
[2019-10-07] MEDS: NEURONTIN PO SCH ×3 (08:54→17:19)
[2019-10-07] MEDS: FLOMAX PO SCH (08:54)
[2019-10-07] MEDS: TOPROL XL PO SCH (08:54)
[2019-10-07] MEDS: CORTEF PO SCH ×2 (08:55→21:35)
[2019-10-07] MEDS: MAG-OX PO SCH (08:55)
[2019-10-07] MEDS: LASIX PO SCH (08:55)
--- NOTE | 2019-10-07 11:59 | PROGRESS NOTE ---
DATE: 10/07/2019 SUBJECTIVE: The patient is feeling better today compared with yesterday. He is still complaining of some cough and some chest discomfort at the bases. At the moment of my exam, he was using a nasal cannula and the oxygen saturation has been stable as well as the vital signs. I have placed this patient on Lovenox twice a day subcutaneously, 1 mg/kg, and I will wait for the recommendations of Hematology/Oncology Department. OBJECTIVE: Vital Signs: Temperature 98.2 degrees, pulse 62, respiratory rate 20, blood pressure 137/84, oxygen saturation 97% on 5 L of nasal cannula. HEENT: Head normocephalic, no trauma. PERRLA. Neck: Supple. No JVD. No masses. Central trachea. Chest: Decreased breath sounds at the bases with some crepitus. On the left side he has been having some expiratory wheezing scattered, mild rhonchi scattered as well. Abdomen: Soft, protuberant, slightly distended but positive bowel sounds. Extremities: Generalized edema, no clubbing, no cyanosis. Neurological: This patient is alert and oriented x3. No focal deficits. LABORATORY: WBC 10.5, hemoglobin 8.8, hematocrit 29.3, platelets 259,000. Pending CMP as well as magnesium. ASSESSMENT AND PLAN: 1. Acute hypoxemic respiratory failure due to bilateral pulmonary emboli. This patient has been placed on Lovenox twice a day. We are aware about his chronic kidney disease, but his glomerular filtration rate is above 30. So, for now we will continue with this management. I have requested an evaluation by Hematology/Oncology Department pending recommendations. He seems to be feeling better. 2. Chronic obstructive pulmonary disease, on home O2 as well. We will continue with bronchodilators, aggressive pulmonary toilet and oxygen supplementation. 3. Metastatic recurrent non-small cell lung cancer, aware. I will follow the recommendations of Oncology Department. 4. Anemia, stable. 5. CKD. Seems to be around baseline. His creatinine has been between 1.3 and 1.9 lately. Yesterday it was 1.8. I will monitor pending results today. 6. Chronic pain syndrome. Continue with home medications. 7. History of coronary artery disease status post myocardial infarction and stenting, aware. 8. Abdominal aortic aneurysm repair in the past, aware. 9. Chronic diastolic heart failure. He does have some mild lower extremity edema, but he does not appear to be in exacerbation, just mild pleural effusion. 10. Critical care time 30 minutes. cc: Remi Xiong MD
[2019-10-07] MEDS: LOVENOX SUBQ SCH ×2 (12:27→23:40)
--- NOTE | 2019-10-07 12:49 | ECHO REPORT ---
ORDER DATE: 10/06/2019 ECHOCARDIOGRAPHIC MEASUREMENTS: 1. Interventricular septum 0.9. 2. Left ventricular posterior wall 0.9. 3. Diastolic diameter 5.4 4. Left atrium 3.4. 5. Aorta 3.5. Aortic valve leaflets are trileaflet. Mitral valve was normal. Pulmonic valve was normal. Tricuspid valve was normal. Normal left ventricular cavity size. Estimated ejection fraction of 45%. There was mild apical and septal wall hypokinesis. There is mild mitral regurgitation. Mild to moderate tricuspid regurgitation. Peak velocity across the tricuspid valve was 3.9 m/sec. Pulmonary artery systolic pressure of 73 mmHg. There is pulmonary arterial hypertension. There is diastolic dysfunction. Peak velocity across the aortic valve less than 2 m/sec. There is no aortic stenosis or regurgitation. There is no pericardial effusion or obvious intracardiac mass or thrombus seen. Anterior echo-free space suggestive of pericardial fat pad noted. cc: Lino Hunter MD
[2019-10-07] MEDS: LIPITOR PO SCH (21:35)
[2019-10-07] MEDS: RESTORIL PO SCH (21:35)
[2019-10-08 06:04] LABS: BASO# 0.04 X1000 (0.0-0.2); BASO% 0.2 % (0.0-0.8); HEMATOCRIT 30.3 % (42.0-52.0); HEMOGLOBIN 8.9 g/dL (14.0-18.0); IMM GRAN# 0.58 X1000 (0.0-0.04); IMM GRAN% 3.6 % (0.0-0.5); LYMPH# 1.38 X1000 (1.2-3.4); LYMPH% 8.5 % (20.5-51.1); MCH 30.5 PG (27-31); MCHC 29.4 g/dL (33-37); MCV 103.8 FL (81-99); MONO# 2.41 X1000 (0.11-0.59); MONO% 14.8 % (1.7-9.3); NEUT# 11.84 X1000 (1.4-6.5); NEUT% 72.9 % (42.2-75.2); PLT 266 X1000 (130-400); RBC 2.92 XMIL (4.7-6.1); RDW 18.3 % (11.5-14.5); WBC 16.25 X1000 (4.8-10.8)
[2019-10-08 06:19] LABS: AGAP 11; ALB/GLOB RATIO 1.2; ALBUMIN 3.1 g/dL (3.5-5.0); ALKALINE PHOSPHATASE 66 U/L (32-122); BUN 30 mg/dL (8-22); CALCIUM 9.6 mg/dL (8.8-10.2); CHLORIDE 100 mmol/L (98-107); COSMO 288; CREATININE 1.4 mg/dL (0.7-1.2); ESTIMATED GFR 50; GLUCOSE 113 mg/dL (70-104); GOT 14 U/L (10-34); GPT 11 U/L (10-44); MAGNESIUM 1.9 mg/dL (1.5-2.7); POTASSIUM 3.9 mmol/L (3.5-5.1); SODIUM 141 mmol/L (136-145); TCO2 30 mmol/L (25-35); TOTAL BILIRUBIN < 0.15 mg/dL (0.20-1.00); TOTAL PROTEIN 5.6 g/dL (6.3-8.3)
[2019-10-08] MEDS: PRILOSEC PO SCH (06:25)
--- NOTE | 2019-10-08 08:11 | PROGRESS NOTE ---
DATE: 10/08/2019 SUBJECTIVE: The patient is feeling a little bit better today. He still complaining of some cough, but no pain. He is still on a nasal cannula. I will continue with Lovenox twice a day, and I will wait for recommendations of Hematology/Oncology Department. His white blood cell count increased to 16, but he is not having fever or chills, his urine looks fine, and the CT scan done a couple days ago did not show any infiltrates. He is getting hydrocortisone though, which is chronic, and also he has been placed on Symbicort, which I have stopped already. I will monitor this. OBJECTIVE: Vital Signs: Temperature 97.9 degrees, pulse 62, respiratory rate 16, blood pressure 142/77, oxygen saturation 98 on nasal cannula. HEENT: Head normocephalic. No trauma. PERRLA. Neck: Supple. No JVD. No masses. Central trachea. Chest: Decreased breath sounds with crepitus as well at the level of the left upper thoracic area. He is not having wheezing today. Abdomen: Soft, protuberant, slightly distended, but positive bowel sounds. Extremities: Generalized edema. No clubbing, no cyanosis. Neurological: The patient is alert and oriented x3. No focal deficits. LABORATORY DATA: WBC 16.2, hemoglobin 8.9, hematocrit 30.3, platelets 266,000. Sodium 141, potassium 3.9, chloride 100, bicarbonate 30, BUN 30, creatinine 1.4, glucose 113, calcium 9.6, albumin 3.1. ASSESSMENT AND PLAN: 1. Acute hypoxemic respiratory failure due to bilateral pulmonary emboli. This patient has been placed on Lovenox twice a day. We are aware about his chronic kidney disease, but his glomerular filtration rate is about 30. For now, will continue with the same management. He seems to be feeling a bit better. Hematology/Oncology Department has been consulted, pending recommendations. 2. Chronic obstructive pulmonary disease, on home oxygen as well. We will continue with bronchodilators, pulmonary toilet, and oxygen supplementation. 3. Metastatic recurrent non-cell lung cancer. Aware. Will follow the recommendations of Oncology Department. 4. Anemia, stable. 5. Chronic kidney disease. He seems to be around baseline, and actually is a little bit better compared with admission. 6. Chronic pain syndrome. Continue with home medication. 7. History of coronary artery disease, status post myocardial infarction and stenting. Aware. 8. Abdominal aortic aneurysm repair in the past. Aware. 9. Chronic diastolic heart failure. He does not appear to be in exacerbation. 10. Leukocytosis. Probably this is reactive. I do not have any source of infection right now. No fever, no chills, but I will keep an eye on this. I have stopped the Symbicort, which has some steroid. cc: Remi Xiong MD
[2019-10-08] MEDS: CORTEF PO SCH ×2 (09:28→21:36)
[2019-10-08] MEDS: TOPROL XL PO SCH (09:28)
[2019-10-08] MEDS: FLOMAX PO SCH (09:28)
[2019-10-08] MEDS: NEURONTIN PO SCH ×3 (09:28→21:36)
[2019-10-08] MEDS: MAG-OX PO SCH (09:28)
[2019-10-08] MEDS: MIRALAX PO SCH (09:28)
[2019-10-08] MEDS: LASIX PO SCH (09:28)
[2019-10-08] MEDS: MS CONTIN PO SCH ×2 (11:44→21:35)
[2019-10-08] MEDS: LOVENOX SUBQ SCH ×2 (11:45→21:36)
--- NOTE | 2019-10-08 16:12 | HEMO/ONC CONSULTATION ---
DATE: 10/07/2019 Patient seen in consultation at the request of Dr. Hui. HISTORY OF PRESENT ILLNESS: Mr. Santana is a gentleman well known to us with metastatic non-small cell lung cancer who has been on palliative chemotherapy. He has underlying severe COPD as well. He presented to our clinic on the day of admission and was found to be significantly hypoxic on 10/06/2019 with saturations in the 60s. He was sent to the emergency room where he had a CT angio that showed numerous bilateral PTE, improved left hilar lymphadenopathy and stable left upper lobe collapse with a small left pleural effusion. He was admitted to the ICU for monitoring and oxygen support. He has been placed on Lovenox for anticoagulation. We are consulted for assistance with the same. PAST MEDICAL HISTORY: Significant for COPD, coronary artery disease, cataract, hypertension, hyperlipidemia, adrenal insufficiency, non-small cell lung cancer, arthritis, BPH, CHF and abdominal aortic aneurysm as well as chronic kidney disease. PAST SURGICAL HISTORY: Cataract resection, ERCP, abdominal aortic aneurysm repair, hernia repair, coronary stent and port placement. Allergies, medications, review of systems reviewed per chart. ALLERGIES: Iodine. PHYSICAL EXAMINATION: Vital Signs: At the time of consultation, O2 saturation 92% on nasal cannula, pulse 64, respiratory rate 16, blood pressure 142/84. The patient is afebrile. General: This is a chronically ill-appearing man. Rest examination remarkable only for respiratory distress. LABORATORY DATA: White count 10.57, hemoglobin 8.8, platelet count 259,000, creatinine 1.7. UA negative. Chest x-ray shows left upper lobe collapse. CT angio as per HPI . FAMILY MEDICAL HISTORY: Mom had a stroke. Dad had Hodgkin lymphoma. ASSESSMENT AND PLAN: 1. New bilateral pulmonary thromboembolism: I have canceled his hypercoagulability workup as the patient has no malignancy and will need to be on long-term anticoagulation given his acute event. I agree with 1 mcg per kg every q.12 hours Lovenox dosing as you are doing currently. I would plan to keep him on Lovenox for approximately 6 weeks prior to transitioning him to oral anticoagulation. Bleeding precautions have been reviewed. We will monitor the patient closely as an outpatient. Clinically he seems to be improving. 2. Non-small cell lung cancer: He has been stable on his most recent treatment. We will continue the same once he is clinically recovered from this hospitalization. Continue to monitor. 3. Adrenal insufficiency: Continue his hydrocortisone replacement and use stress dose steroids if he develops any signs of hypotension. 4. Chronic obstructive pulmonary disease: Continue pulmonary toilet and supportive care as you are doing. Thank you for this consultation and the opportunity to take care of this patient who is well known to us and a pleasant, unfortunate gentleman with non-small cell lung cancer. cc: Remi Xiong MD
[2019-10-08] MEDS: LIPITOR PO SCH (21:35)
[2019-10-08] MEDS: RESTORIL PO SCH (21:36)
[2019-10-09] MEDS: PRILOSEC PO SCH ×2 (05:28→06:17)
[2019-10-09 06:10] LABS: BASO% 0.8 % (0.0-0.8); EOS# 0.05 X1000 (0.0-0.7); EOS% 0.4 % (0.0-10.0); HEMATOCRIT 30.3 % (42.0-52.0); IMM GRAN# 1.15 X1000 (0.0-0.04); LYMPH% 12.5 % (20.5-51.1); MCH 31.1 PG (27-31); MCHC 29.7 g/dL (33-37); MCV 104.8 FL (81-99); MONO# 2.11 X1000 (0.11-0.59); MONO% 16.4 % (1.7-9.3); MPV 10.3 FL (7.4-10.4); NEUT# 7.83 X1000 (1.4-6.5); NEUT% 60.9 % (42.2-75.2); PLT 255 X1000 (130-400); RBC 2.89 XMIL (4.7-6.1); RDW 18.4 % (11.5-14.5); WBC 12.84 X1000 (4.8-10.8)
[2019-10-09 06:16] LABS: ALB/GLOB RATIO 1.3; ALBUMIN 2.9 g/dL (3.5-5.0); CALCIUM 9.4 mg/dL (8.8-10.2); CREATININE 1.5 mg/dL (0.7-1.2); PHOSPHORUS 3.6 mg/dL (2.7-4.5); POTASSIUM 3.8 mmol/L (3.5-5.1); TOTAL BILIRUBIN 0.18 mg/dL (0.20-1.00); TOTAL PROTEIN 5.2 g/dL (6.3-8.3)
[2019-10-09 06:45] LABS: LYMPHS 16 % (21-51); MONO 4 % (1-9); NRBC 5 % (0-0); SEGS 66 % (42-75)
--- NOTE | 2019-10-09 07:12 | Diag Imaging Result Doc PS360 ---
EXAM: CHEST-PORTABLE 10/09/2019 HISTORY: dyspnea TECHNIQUE: AP portable upright at 0531 COMMENT: There is some increased interstitial opacity in the lung bases particularly the right lower lobe. There is worsening volume loss and opacification in the left upper lobe compared to 10/07/2019. IMPRESSION: 1. Worsening postobstructive pneumonia in the left upper lobe with complete collapse. This is likely due to an endobronchial mass or other obstruction. 2. Mild pulmonary edema. Electronically signed by Sebas Byrne 10/09/2019 7:10 AM
--- NOTE | 2019-10-09 08:36 | PROGRESS NOTE ---
DATE: 10/09/2019 SUBJECTIVE: This patient is resting comfortably in bed. We did an x-ray today that showed worsening left upper lobe collapse and the possibility of postobstructive pneumonia, mild pulmonary edema. Since his white blood cell count increased yesterday and is still elevated today, I will go ahead and put him on antibiotics. He has not been having fever though. He is still using oxygen, around 5 L through a nasal cannula, but he is on home O2 as well between 4 to 5 L so this is basically his baseline. The plan is to go ahead and treat this patient with Lovenox for around 6 weeks prior to transitioning him to oral anticoagulation. This has been explained to the patient. Echocardiogram showed an ejection fraction of around 45% and also showed pulmonary hypertension with a pulmonary artery systolic pressure of 73 mmHg. I checked his previous echocardiogram from 03/30/2019 and no big changes are noted. His ejection fraction was around 45% at that time and he still has an elevated pulmonary arterial pressure. I will ask for the report of the venous Doppler ultrasound and I will continue with same management for now. He seems to be stable. OBJECTIVE: Vital Signs: Temperature 98 degrees, pulse 69, respiratory rate 26, blood pressure 120/56, oxygen saturation 98 on 5 L per nasal cannula. HEENT: Head normocephalic. No trauma. PERRLA. Neck: Supple. No JVD. No masses. Central trachea. Chest: Decreased breath sounds with some crepitus at the level of the left upper thoracic area. No wheezing. Crepitus at the bases, scattered. Abdomen: Soft, protuberant, slightly distended. Positive bowel sounds. Extremities: Trace edema. No clubbing, no cyanosis. Neurological Examination: The patient is alert and oriented x3. No focal deficits. Laboratory: WBC 12.8, hemoglobin 9, hematocrit 30.3, platelets 255,000. Sodium 144, potassium 3.8, chloride 103, bicarbonate 32, BUN 28, creatinine 1.5, glucose 94, calcium 9.4, albumin 2.9. ASSESSMENT AND PLAN: 1. Acute hypoxemic respiratory failure due to bilateral pulmonary emboli. Continue with Lovenox twice a day. We will continue with this treatment for 6 weeks as recommended by hematology/oncology department. Then he is going to be switched to oral treatment. He seems to be doing better. Continue with the same management. Continue oxygen supplementation as well. He is on home oxygen. 2. Chronic obstructive pulmonary disease, on home oxygen as well. Continue with bronchodilators, pulmonary toilet, oxygen supplementation. 3. Metastatic recurrent non-cell lung cancer. Aware. We will follow the recommendations of hematology/oncology department. 4. Anemia, stable. 5. Chronic kidney disease. This is his baseline. 6. Chronic pain syndrome. Continue with home medication. 7. History of coronary artery disease, status post myocardial infarction and stenting, aware. 8. Abdominal aortic aneurysm repair in the past, aware. 9. Chronic diastolic heart failure, also systolic heart failure. His ejection fraction is around 45. He does have pulmonary hypertension but he does not appear to be in exacerbation. Continue home medication. 10. Leukocytosis. There is a possibility of a pneumonia which could be postobstructive. White blood cell count compared with yesterday is better from 16 decreased to 12. I have placed this patient on antibiotics. cc: Remi Xiong MD
[2019-10-09] MEDS: ZOSYN 3.375 GM in NS 50 ML IV SCH ×3 (08:51→21:39)
[2019-10-09] MEDS: LASIX PO SCH (08:51)
[2019-10-09] MEDS: FLOMAX PO SCH (08:51)
[2019-10-09] MEDS: LOVENOX SUBQ SCH ×2 (08:51→20:39)
[2019-10-09] MEDS: MIRALAX PO SCH (08:52)
[2019-10-09] MEDS: MAG-OX PO SCH (08:52)
[2019-10-09] MEDS: TOPROL XL PO SCH (08:52)
[2019-10-09] MEDS: CORTEF PO SCH ×2 (08:52→20:39)
[2019-10-09] MEDS: MS CONTIN PO SCH ×2 (09:01→20:39)
[2019-10-09] MEDS: NEURONTIN PO SCH ×3 (09:07→17:17)
--- NOTE | 2019-10-09 18:11 | HEMO/ONC PROGRESS NOTE ---
DATE: 10/09/2019 SUBJECTIVE: Mr. Santana lying in hospital bed. He is comfortable in no acute distress. OBJECTIVE: Temperature 98 degrees, heart rate 76, respirations 20, blood pressure 147/50, O2 saturation is 99% on 5 L. LAB: White blood cells today are 12.84, hemoglobin 9.0, platelet count 255,000. PHYSICAL EXAM: CV: S1, S2 heard, no murmurs, gallops, rubs appreciated. Respiratory: Chest is with some rales and some coarse breath sounds. Scant wheezing on occasion. No rhonchi noted. Gastrointestinal: Abdomen is soft, positive bowel sounds. Extremities: He has some trace bilateral extremity edema. ASSESSMENT AND PLAN: 1. Bilateral pulmonary thromboembolisms. Patient will continue on Lovenox 1 mg/kg every 12 hours for the next 6 weeks. He has underlying metastatic lung cancer that is known and that is the source of his clot. He will need lifelong anticoagulation. He will be monitored closely as an outpatient. 2. Non-small cell lung cancer. Stable on his most recent scans. He was actually due for treatment on the day that he was admitted to the hospital. Will adjust and see him as an outpatient once he is released from the hospital. 3. Adrenal insufficiency. Need to continue hydrocortisone replacement. 4. Chronic obstructive pulmonary disease. Continue pulmonary toilet and supportive care. Overall his respiratory status seems closer to baseline. He does require continuous O2 at baseline. Dictated by REGLA Paige for Marisol Webber MD cc: Marisol Webber MD
[2019-10-09] MEDS: LIPITOR PO SCH (20:39)
[2019-10-09] MEDS: RESTORIL PO SCH (21:38)
--- NOTE | 2019-10-10 04:04 | Extremity Venous Study ---
PROCEDURE NAME: Venous U/S Bilateral Legs - 10/06/2019 BI ARCHITECT: Seferino. REQUESTING PHYSICIAN: LIOR Wilkinson. INDICATION: Pulmonary embolus. FINDINGS: The deep superficial veins of the bilateral lower extremities were visualized along their course. In the calves bilaterally at the posterior tibial vein there is a thrombus consistent with acute DVT. There is also thrombus in the left soleal vein. SUMMARY: DVT bilaterally in the posterior tibial veins and the left soleal vein. cc: Millicent Shin MD
[2019-10-10] MEDS: ZOSYN 3.375 GM in NS 50 ML IV SCH (04:12)
[2019-10-10] MEDS: PRILOSEC PO SCH ×2 (05:30→06:06)
[2019-10-10 06:16] LABS: BASO# 0.12 X1000 (0.0-0.2); BASO% 0.8 % (0.0-0.8); EOS# 0.03 X1000 (0.0-0.7); EOS% 0.2 % (0.0-10.0); HEMATOCRIT 31.5 % (42.0-52.0); HEMOGLOBIN 9.2 g/dL (14.0-18.0); IMM GRAN# 1.23 X1000 (0.0-0.04); IMM GRAN% 8.7 % (0.0-0.5); LYMPH# 1.63 X1000 (1.2-3.4); LYMPH% 11.5 % (20.5-51.1); MCH 30.8 PG (27-31); MCHC 29.2 g/dL (33-37); MCV 105.4 FL (81-99); MONO# 1.83 X1000 (0.11-0.59); MONO% 12.9 % (1.7-9.3); MPV 10.4 FL (7.4-10.4); NEUT# 9.35 X1000 (1.4-6.5); NEUT% 65.9 % (42.2-75.2); PLT 229 X1000 (130-400); RBC 2.99 XMIL (4.7-6.1); RDW 18.4 % (11.5-14.5); WBC 14.19 X1000 (4.8-10.8)
[2019-10-10 06:27] LABS: CALCIUM 9.1 mg/dL (8.8-10.2); CREATININE 1.6 mg/dL (0.7-1.2); POTASSIUM 4.3 mmol/L (3.5-5.1)
--- NOTE | 2019-10-10 07:17 | Diag Imaging Result Doc PS360 ---
EXAM: CHEST-PORTABLE 10/10/2019 HISTORY: dyspnea TECHNIQUE: AP portable upright at 0526 COMMENT: There has been some improvement with regard to the atelectasis in the left upper lobe since 10/09/2019. There is mild interstitial opacity in the right lung base. There is worsened volume loss and opacification in the left lower lobe compared to the previous study. IMPRESSION: Waxing and waning atelectasis in the left lung. Mild pulmonary edema. Electronically signed by Sebas Byrne 10/10/2019 7:14 AM
[2019-10-10 08:15] VITALS: BP 134/72
[2019-10-10] MEDS: FLOMAX PO SCH (10:36)
[2019-10-10] MEDS: MS CONTIN PO SCH (10:36)
[2019-10-10] MEDS: CORTEF PO SCH (10:36)
[2019-10-10] MEDS: MAG-OX PO SCH (10:36)
[2019-10-10] MEDS: LASIX PO SCH (10:37)
[2019-10-10] MEDS: MIRALAX PO SCH (10:37)
[2019-10-10] MEDS: TOPROL XL PO SCH (10:37)
[2019-10-10] MEDS: NEURONTIN PO SCH (10:37)
[2019-10-10] MEDS: LOVENOX SUBQ SCH (10:37)
--- NOTE | 2019-10-11 12:50 | DISCHARGE SUMMARY ---
ADMISSION DATE: 10/06/2019 DISCHARGE DATE: 10/10/2019 DISCHARGE DIAGNOSES: 1. Acute on chronic hypoxemic respiratory failure due to bilateral pulmonary emboli. Patient already on home oxygen. 2. Chronic obstructive pulmonary disease, on home oxygen. 3. Metastatic recurrent non-small cell lung cancer. 4. Anemia. 5. Chronic kidney disease. 6. Chronic pain syndrome. 7. History of coronary artery disease. 8. Abdominal aortic aneurysm. 9. Chronic diastolic heart failure. 10. Leukocytosis, likely reactive. PROCEDURES PERFORMED: Chest x-ray dated 10/06/2019. Impression: Stable masslike opacity in the left perihilar region. Pulmonary arteriogram dated 10/06/2019. Impression: Numerous pulmonary emboli bilaterally, a slight improvement in the left hilar adenopathy, a stable severe collapse/consolidation of the left upper lobe, small left pleural effusion. Echocardiogram dated 10/06/2019. Ejection fraction 45%, pulmonary artery systolic pressure 73 mmHg. Chest x-ray dated 10/07/2019. Impression: Increased collapse in the left upper lobe, otherwise no change from prior. X-ray dated 10/09/2019. Impression: Worsening postobstructive pneumonia in the left upper lobe with complete collapse, likely due to an endobronchial mass or other obstruction, mild pulmonary edema. Chest x-ray dated 10/10/2019. Impression: Waxing and waning atelectasis in the left lung, mild pulmonary edema. CONSULTS: Hematology/oncology department, Dr. Marisol Webber. HOSPITAL COURSE: This is a 73-year-old, male, well known by Dr. 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 This patient presented to [facility] the day of admission, on 10/06/2019, to receive chemotherapy treatment but he was short of breath. They checked his oxygen saturation and it was low. They were not able this oxygen up so he was brought over to the emergency department where he was found to be hypoxemic and hypercarbic. He has a history also of COPD, on home O2, hypertension, hyperlipidemia, arthritis, BPH, adrenal insufficiency, chronic diastolic heart failure, chronic pain syndrome and opioid use, history of NM, abdominal aortic aneurysm, skin cancer with previous radiation to the nose. Further workup in the emergency department with a CT angiogram of the chest showed bilateral pulmonary emboli. We put this patient on Lovenox twice a day and we requested an evaluation by hematology/oncology department, Dr. Marisol Webber, who suggested to continue with Lovenox 1 mg/kg twice a day for at least 6 weeks before putting this patient on oral treatment. This patient has been improving on a daily basis. He was having chronic hypoxemia and he was on home O2, which we will continue. This patient is tolerating p.o. and able to ambulate. We also did a Doppler venous ultrasound of the lower extremities that showed DVT bilaterally in the posterior tibial veins and the left soleal vein. Like I mentioned before, this patient will go home. He will go home with Lovenox twice a day as indicated by hematology/oncology department. He will follow up with them as an outpatient. He seems to be stable but he does have multiple comorbidities. PHYSICAL EXAMINATION: Vital Signs: Temperature 98 degrees, pulse 61, respiratory rate 16, blood pressure 134/72, oxygen saturation 96 on 5 L of nasal cannula. HEENT: Head normocephalic. No trauma. PERRLA. Neck: Supple. No JVD. No masses. Central trachea. Chest: Decreased breath sounds with some crepitus at the level of the left upper thoracic area. No wheezing. Some crepitus at the bases as well. Abdomen: Soft, protuberant, slightly distended. Positive bowel sounds. Extremities: Trace edema. No clubbing, no cyanosis. Neurological Examination: The patient is alert. He is oriented x3. No focal neurological deficit but some generalized weakness. LABORATORY DATA: WBC 14.1, hemoglobin 9.2, hematocrit 31.5, platelets 229,000. Sodium 142, potassium 4.3, chloride 100, bicarbonate 32, BUN 23, creatinine 1.6, glucose 110, calcium 9.1. DISCHARGE MEDICATIONS: 1. Atorvastatin 20 mg p.o. at bedtime. 2. Symbicort 160/4.5 mcg inhaler twice a day as needed. 3. Lovenox 80 mg subcutaneously q.12 hours. 4. Lasix 40 mg p.o. daily. 5. Gabapentin 1 capsule p.o. t.i.d. (300 mg capsule). 6. [place] 10 q.6 hours as needed for pain. 7. Hydrocortisone 20 mg p.o. q.a.m. and 10 mg p.o. at bedtime. 8. Magnesium oxide 400 mg p.o. q.a.m. 9. Metoprolol 25 mg p.o. daily. 10. Morphine 15 mg p.o. q.12 hours extended release. 11. Omeprazole 40 mg p.o. daily. 12. MiraLAX 17 g p.o. daily. 13. Tamsulosin 0.4 mg p.o. daily. 14. Temazepam 30 mg p.o. at bedtime. FOLLOWUP: Follow up with Dr. Marisol Webber. He needs to call for an appointment. Time discharging this patient, 35 minutes. cc: Remi Xiong MD
== END 2019-10-10 11:15 | disposition home health service (06) | DRG 175 ==
LOC: ED 08:27 → EDIPHOLD 16:48 → ICU 22:57 → 2N 10-08 12:13
PROVIDERS: ATTEND Internal Medicine

== ENCOUNTER 2019-12-25 09:59 | Inpatient (IN) ==
[2019-12-25] MEDS ORDERED: NS 1,000 ML IV ONE ×2 (10:20)
[2019-12-25] MEDS ORDERED: DUONEB (A & A) INH ONE (10:21)
--- NOTE | 2019-12-25 11:18 | Diag Imaging Result Doc PS360 ---
EXAM: CHEST-1 VIEW 12/25/2019 HISTORY: sob, lung cancer TECHNIQUE: AP chest COMMENT: There is a left pleural effusion. There is shift the mediastinum to the left which may be due to atelectasis in the left lower lobe in addition to fibrosis and pneumonia. This is worse than on the previous study of 11/16/2019. There is some interstitial pulmonary edema. IMPRESSION: Worsened left pleural effusion and volume loss. Pulmonary edema. Electronically signed by Sebas Byrne 12/25/2019 11:16 AM
[2019-12-25 11:52] LABS: ALLEN TEST YES; BE 6.9 mmoll (-3.0-3.0); BLOOD TYPE ARTERIAL; HCO3-(ACT) 30.3 mmoll (20.0-26.0); METHB 0.9 % (0.0-1.5); MODALITY CANNULA; O2HB 94.9 % (95.0-99.0); PCO2(98.6) 43 mmHg (35-45); PO2(98.6) 76 mmHg (60-100); SAMPLE BLOOD; SAO2 98.2 % (95.0-100.0); THB 9.7 g/dL (11.5-17.4); pH(98.6) 7.47 (7.35-7.45)
[2019-12-25 11:57] LABS: BASO# 0.02 X1000 (0.0-0.2); BASO% 0.2 % (0.0-0.8); EOS# 0.05 X1000 (0.0-0.7); EOS% 0.6 % (0.0-10.0); HEMATOCRIT 31.9 % (42.0-52.0); HEMOGLOBIN 9.3 g/dL (14.0-18.0); LYMPH# 0.35 X1000 (1.2-3.4); MCH 28.3 PG (27-31); MCHC 29.2 g/dL (33-37); MONO# 0.28 X1000 (0.11-0.59); MONO% 3.2 % (1.7-9.3); MPV 10.9 FL (7.4-10.4); NEUT# 8.03 X1000 (1.4-6.5); PLT 196 X1000 (130-400); RBC 3.29 XMIL (4.7-6.1); RDW 18.4 % (11.5-14.5); WBC 8.73 X1000 (4.8-10.8)
[2019-12-25 12:07] LABS: AGAP 8; ALKALINE PHOSPHATASE 74 U/L (32-122); BUN 14 mg/dL (8-22); CALCIUM 9.5 mg/dL (8.8-10.2); CHLORIDE 100 mmol/L (98-107); CK PROFILE 22 U/L (24-204); COSMO 280; CREATININE 1.1 mg/dL (0.7-1.2); ESTIMATED GFR > 60; GLUCOSE 134 mg/dL (70-104); GOT 9 U/L (10-34); GPT 8 U/L (10-44); MAGNESIUM 1.8 mg/dL (1.5-2.7); POTASSIUM 4.3 mmol/L (3.5-5.1); SODIUM 139 mmol/L (136-145); TCO2 31 mmol/L (25-35); TOTAL BILIRUBIN 0.55 mg/dL (0.20-1.00)
[2019-12-25 12:12] LABS: INR 1.53; PROTIME 18.7 Seconds (11.0-16.0)
[2019-12-25 12:30] LABS: BANDS 2 % (0-1); LYMPHS 4 % (21-51); MONO 4 % (1-9); SEGS 90 % (42-75)
[2019-12-25] MEDS ORDERED: LASIX IV ONE (12:38)
[2019-12-25] MEDS ORDERED: ZOSYN 4.5 GM in NS 100 ML IV ONE (12:38)
--- NOTE | 2019-12-25 12:51 | PROVIDER DOCUMENTATION ---
This chart was entered by Maria D Melendez Scribe, acting as scribe for Mukund Naylor MD. HPI-Respiratory General - General Stated Complaint: difficulty breathing, nosebleed Time Seen by Provider: 12/25/19 10:13 Source: patient, EMS Allergies/Adverse Reactions: Patient Allergies Allergy/AdvReac Type Severity Reaction Status Date / Time Iodine and Iodide Containing Allergy ANAPHYLAXIS Verified 03/29/19 09:18 Produc shellfish derived Allergy ANAPHYLAXIS Verified 03/29/19 09:18 Home Medications: Home Medication List Medication Instructions Recorded Confirmed Last Taken Type ATORVAstatin [Lipitor] 20 mg PO QHS 04/12/17 10/06/19 1 Day Ago History ~10/05/19 Gabapentin 1 cap PO TID 03/29/19 10/06/19 10/06/19 History Hydrocortisone [Cortef] 2 tab PO DIRECTED 03/29/19 10/06/19 10/06/19 History Metoprolol [Lopressor] 0.5 tab PO DAILY 03/29/19 10/06/19 10/06/19 History Morphine Sulfate [Morphine Sulfate 1 tab PO Q12H 03/29/19 10/06/19 10/06/19 Hist ory ER] Tamsulosin HCl 1 cap PO DAILY 03/29/19 10/06/19 10/06/19 History Furosemide [Lasix] 40 mg PO DAILY #30 tab 04/03/19 10/06/19 10/06/19 Rx Budesonide/Formoterol Fumarate 1 inh INH BID PRN 08/02/19 10/06/19 10/06/19 History [Symbicort 160-4.5 Mcg Inhaler] Hydrocodone/Acetaminophen 1 tab PO Q6H PRN 08/02/19 10/06/19 10/06/19 History [Hydrocodone-Acetamin 10-325 mg] Omeprazole 40 mg PO DAILY 08/02/19 10/06/19 10/06/19 History Magnesium Oxide [Magnesium] 400 mg PO QAM 10/06/19 10/06/19 10/06/19 History Temazepam [Restoril] 30 mg PO QHS 10/06/19 10/06/19 1 Day Ago History ~10/05/19 Enoxaparin [Lovenox] 80 mg SUBQ Q12H #76 syringe 10/10/19 Unknown Rx Polyethylene Glycol 3350 [Miralax] 17 gm PO DAILY powder, packet 10/10/19 Unknown Rx - History of Present Illness-Resp Nature of Presenting Problem: Patient is a 74 year old male who presents to the ED via EMS with shortness of breath. Patient reports hemoptysis and having blood from nose when he blows it. History of lung cancer with active chemo that is followed by Dr. Webber. States last chemo treatment was 5 days ago. EMS states patient has a history of PEs and pneumonia. Patient denies rectal bleeding and hematuria. Reports he takes Xarelto. Severity in ED: reports: mild Onset/Duration: reports: gradual Timing: reports: still present, getting worse Cough Quality/Degree: reports: blood streaked sputum Associated Symptoms: reports: cough, shortness of breath, other (blood from nose with blowing it.) Similar Symptoms Previously?: Yes Recently seen or treated by another doctor?: No Review of Systems - Adult - REVIEW OF SYSTEMS - ADULT Constitutional: reports: no symptoms reported Eyes: reports: no symptoms reported Ears, Nose, Mouth & Throat: reports: see HPI, other (blood from nose with blowing it.). denies: sinus problem, nose pain Cardiovascular: reports: no symptoms reported Respiratory: reports: see HPI, cough, hemoptysis, shortness of breath Gastrointestinal: reports: no symptoms reported. denies: rectal bleeding Genitourinary: reports: no symptoms reported. denies: hematuria Musculoskeletal: reports: no symptoms reported Integumentary: reports: no symptoms reported Neurological: reports: no symptoms reported Psychiatric: reports: no symptoms reported Endocrine: reports: no symptoms reported Hematologic/Lymphatic: reports: no symptoms reported Allergic/Immunologic: reports: no symptoms reported All Other Systems: Reviewed and Negative Past History - Adult - PAST MEDICAL HISTORY-ADULT Review of Records: reports: Old Records Reviewed, Nursing Assessment Review, Medications Reviewed, Social history reviewed & non-contributory. Major Childhood Illnesses: reports: denies history Cardiovascular: reports: CHF, HTN, hyperlipidemia, NC Respiratory: reports: asthma, COPD, cancer (lung), pneumonia Gastrointestinal: reports: denies history Obstetrical/Gynecological: reports: denies history Genitourinary: reports: denies history Musculoskeletal: reports: denies history Neurological: reports: denies history Endocrine/Immune: reports: denies history Other Conditions: reports: denies history - PRIOR SURGERIES/PROCEDURES Surgical/Procedure History: reports: cardiac stent (x5), tonsillectomy, other (cataract) - IMMUNIZATION STATUS Childhood Immunizations: See Nurse Assessment Flu Vaccine: See Nurse Assessment - FAMILY HISTORY Family History: reviewed, not pertinent - SOCIAL HISTORY Smoking: cigarettes (former) Substance Use: denies Physical Exam-General - PHYSICAL EXAM-ADULT Initial Vital Signs Reviewed: Yes - CONSTITUTIONAL General Appearance: alert, no apparent distress. negative: lethargic - RESPIRATORY Respiratory: chest non-tender, rhonchi (scattered bilaterally), increased rate, other (port to right upper chest). negative: respiratory distress - CARDIOVASCULAR Cardiovascular: regular rate, rhythm, extra beats (occasional ectopic beats). negative: systolic murmur - GASTROINTESTINAL (ABDOMEN) Abdominal Exam: normal bowel sounds, non tender, soft. negative: guarding - MUSCULOSKELETAL Extremity: non-tender, normal inspection. negative: erythema, pedal edema - SKIN Integumentary: normal color, normal turgor, warm/dry. negative: cyanosis, pallor - NEUROLOGIC Neurologic: grossly normal. negative: aphasia, facial droop - PSYCHIATRIC Psych/Mental Status: normal mood/affect, normal thought content, normal thought process, oriented x 3. negative: paranoid Progress - PLAN OF CARE/RESULTS Progress/Plan/Lab Results: Vital Signs - 8 hr 12/25/19 10:41 12/25/19 11:54 Temperature 98.0 F Pulse Rate 79 98 H Respiratory Rate 18 22 Blood Pressure 126/78 O2 Sat by Pulse Oximetry 96 98 12/25/19 11:58 - Final Sputum Laboratory Results - last 24 hr 12/25/19 12/25/19 12/25/19 11:18 11:18 11:18 WBC 8.73 RBC 3.29 L Hgb 9.3 L Hct 31.9 L MCV 97.0 MCH 28.3 MCHC 29.2 L RDW Std Deviation 18.4 H Plt Count 196 MPV 10.9 H Neut % (Auto) 92.0 H Lymph % (Auto) 4.0 L [place] % (Auto) 3.2 Eos % (Auto) 0.6 Baso % (Auto) 0.2 Neut # (Auto) 8.03 H Lymph # (Auto) 0.35 L [place] # (Auto) 0.28 Eos # (Auto) 0.05 Baso # (Auto) 0.02 Segmented Neutrophils 90 H Band Neutrophils 2 H Lymphocytes 4 L Monocytes 4 PT 18.7 H INR 1.53 PTT (Actin FS) 27.0 Specimen Type Sample Site pH pCO2 pO2 HCO3 Base Excess Oxyhemoglobin ABG O2 Sat (Calculated) ABG O2 Saturation ABG Carboxyhemoglobin ABG Methemoglobin Zach Test A-a O2 Difference Total Hemoglobin Lactate Liter Flow Blood Gas Modality FiO2 % Sodium 139 Potassium 4.3 Chloride 100 Carbon Dioxide 31 Anion Gap 8 BUN 14 Creatinine 1.1 Estimated GFR/1.73 m2 > 60 BUN/Creatinine Ratio 13 Glucose 134 H Calculated Osmolality 280 Calcium 9.5 Magnesium 1.8 Total Bilirubin 0.55 AST 9 L ALT 8 L Alkaline Phosphatase 74 Creatine Kinase 22 L Troponin T High Sens Ikp-[id number] Pept Total Protein 6.0 L Albumin 3.0 L Globulin 3.0 Albumin/Globulin Ratio 1.0 Plasma Lactate Blood Type Blood Type Confirm Antibody Screen 12/25/19 12/25/19 12/25/19 11:18 11:18 11:18 WBC RBC Hgb Hct MCV MCH MCHC RDW Std Deviation Plt Count MPV Neut % (Auto) Lymph % (Auto) [place] % (Auto) Eos % (Auto) Baso % (Auto) Neut # (Auto) Lymph # (Auto) [place] # (Auto) Eos # (Auto) Baso # (Auto) Segmented Neutrophils Band Neutrophils Lymphocytes Monocytes PT INR PTT (Actin FS) Specimen Type Sample Site pH pCO2 pO2 HCO3 Base Excess Oxyhemoglobin ABG O2 Sat (Calculated) ABG O2 Saturation ABG Carboxyhemoglobin ABG Methemoglobin Zach Test A-a O2 Difference Total Hemoglobin Lactate Liter Flow Blood Gas Modality FiO2 % Sodium Potassium Chloride Carbon Dioxide Anion Gap BUN Creatinine Estimated GFR/1.73 m2 BUN/Creatinine Ratio Glucose Calculated Osmolality Calcium Magnesium Total Bilirubin AST ALT Alkaline Phosphatase Creatine Kinase Troponin T High Sens 78 H Sqw-N-Ttrrslzyveb Pept 2846 H Total Protein Albumin Globulin Albumin/Globulin Ratio Plasma Lactate Blood Type A POSITIVE Blood Type Confirm Antibody Screen NEGATIVE 12/25/19 12/25/19 12/25/19 11:18 11:42 11:58 WBC RBC Hgb Hct MCV MCH MCHC RDW Std Deviation Plt Count MPV Neut % (Auto) Lymph % (Auto) [place] % (Auto) Eos % (Auto) Baso % (Auto) Neut # (Auto) Lymph # (Auto) [place] # (Auto) Eos # (Auto) Baso # (Auto) Segmented Neutrophils Band Neutrophils Lymphocytes Monocytes PT INR PTT (Actin FS) Specimen Type ARTERIAL Sample Site R RADIAL pH 7.47 H pCO2 43 pO2 76 HCO3 30.3 H Base Excess 6.9 H Oxyhemoglobin 94.9 L ABG O2 Sat (Calculated) 13.0 L ABG O2 Saturation 98.2 ABG Carboxyhemoglobin 2.50 ABG Methemoglobin 0.9 Zach Test YES A-a O2 Difference 127.0 Total Hemoglobin 9.7 L Lactate 0.90 Liter Flow 4.0 Blood Gas Modality CANNULA FiO2 % 36.0 Sodium Potassium Chloride Carbon Dioxide Anion Gap BUN Creatinine Estimated GFR/1.73 m2 BUN/Creatinine Ratio Glucose Calculated Osmolality Calcium Magnesium Total Bilirubin AST ALT Alkaline Phosphatase Creatine Kinase Troponin T High Sens Doi-Z-Yjgtdrrmigy Pept Total Protein Albumin Globulin Albumin/Globulin Ratio Plasma Lactate 1.7 Blood Type Blood Type Confirm A POSITIVE Antibody Screen Orders Category Date Time Status Cardiac Monitoring DIRECTED Care 12/25/19 10:19 Active IV Insertion ORDERED Care 12/25/19 10:19 Completed CHEST-1 VIEW [RAD] Stat Exams 12/25/19 10:19 Completed ABG [RESP] Routine Lab 12/25/19 11:42 Completed BLOOD CULTURE [BLDCUL] Stat Lab 12/25/19 11:25 Results CBC WITH DIFF [HEME] Stat Lab 12/25/19 11:18 Completed CK PROFILE [SP CHEM] Stat Lab 12/25/19 11:18 Completed COMPREHENSIVE METABOLIC PANEL [CHEM] Stat Lab 12/25/19 11:18 Completed LACTATE, PLASMA [CHEM] Lab 12/25/19 13:30 Uncollected LACTATE, PLASMA [CHEM] Lab 12/25/19 16:30 Uncollected LACTATE, PLASMA [CHEM] Q3H Lab 12/25/19 11:18 Completed MAGNESIUM [CHEM] Stat Lab 12/25/19 11:18 Completed PRO B-NATRIURETIC PEPTIDE Stat Lab 12/25/19 11:18 Completed PROTIME WITH INR [COAG] Stat Lab 12/25/19 11:18 Completed PTT [COAG] Stat Lab 12/25/19 11:18 Completed SPUTUM CULTURE WITH GRAM STAIN [RM] Routine Lab 12/25/19 11:58 Results TROPONIN T HIGH SENSITIVITY Stat Lab 12/25/19 11:18 Completed TYPE & SCREEN [BBK] Stat Lab 12/25/19 11:18 Completed URINALYSIS W/POSS RFLX CULT [URINALYSIS] Stat Lab 12/25/19 10:19 Uncollected 0.9% Sodium Chloride Inj [Ns] 1,000 ml Med 12/25/19 10:20 Discontinued IV 999 mls/hr 0.9% Sodium Chloride Inj [Ns] 1,000 ml Med 12/25/19 10:20 Discontinued IV 999 mls/hr Albuterol 2.5MG/Ipratrop 0.5MG [Duoneb (A & A)] Med 12/25/19 10:21 Discontinued 3 ml INH NOW ONE Furosemide [Lasix] Med 12/25/19 12:38 Discontinued 80 mg IV NOW ONE Piperacillin/Tazobactam [Zosyn] 4.5 gm Med 12/25/19 12:38 Active 0.9% Sodium Chloride Inj [Ns] 100 ml IV NOW Aerosol Treatments Routine Oth 12/25/19 10:21 Completed Aerosol Treatments Stat Oth 12/25/19 10:21 Completed Oxygen Device Stat Oth 12/25/19 10:19 Completed Result Diagrams: 12/25/19 11:18 12/25/19 11:18 - REASSESSMENT Reassessment #1 Time Reassessed: 12:49 Status: improving (Better after IVF, given IV zosyn and lasix. No return of bleeding.) - EKG 1 Time of EKG reading by physician:: 10:12 EKG Read and Signed by:: Mukund Naylor EKG Interpretation (*Must complete 3 of following elements*): Abnormal Rate: 88 Rhythm: NSR [place]: normal [place] Interval: normal Comments: frequent PVCs, PAC; OAWMI - XRAY 1 XRAY Study: Chest Impression: See EMR Report ( EXAM: CHEST-1 VIEW 12/25/2019 HISTORY: sob, lung cancer TECHNIQUE: AP chest COMMENT: There is a left pleural effusion. There is shift the mediastinum to the left which may be due to atelectasis in the left lower lobe in addition to fibrosis and pneumonia. This is worse than on the previous study of 11/16/2019. There is some interstitial pulmonary edema. IMPRESSION: Worsened left pleural effusion and volume loss. Pulmonary edema. Electronically signed by Sebas Byrne 12/25/2019 11:16 AM 12/25/19 1116 Int erpreting Physician: Sebas Byrne MD Dictated Date/Time: 12/25/19 1115 cc: Mukund Naylor MD; Ez Dave) - CONSULTS/PCP/HOSPITALIST Notification #1 *Consult/PCP/Hospitalist*: LIOR Drew Time Discussed: 12:49 Reason/Comments: admit to [facility] Consult Disposition: Will see in ED, Admit Departure - Departure Date of Disposition Decision: 12/25/19 Time of Disposition Decision: 12:50 DIAGNOSIS: Dyspnea and respiratory abnormalities, Pulmonary edema with congestive heart failure with reduced left ventricular function, Recurrent left pleural effusion, Epistaxis, recurrent Anticoagulant adverse reaction Qualifiers: Encounter type: initial encounter Qualified Code(s): T45.515A - Adverse effect of anticoagulants, initial encounter Disposition: ADMITTED INPATIENT 09 Certified Medical Emergency: Emergent Condition: Stable Referrals and Follow-Ups: Marita Salcedo MD [NON-STAFF PROVIDER] - - Critical Care Note This patient required my direct & personal management of CC.: No Attestation - Physician/ DANY Attestation Patient care was provided by Advanced Practice Provider:: No The physician spent face to face time with patient:: Yes Advanced Practice Provider documentation review:: Supervising physician onsite and consulted in the evaluation and care of this patient. The physician did have a face to face encounter with the patient. This chart was documented by the indicated scribe, (Maria D Melendez Scribe) and accurately reflects the services I performed and decisions made by me, Mukund Nyalor MD, as attested by the provider's signature.
[2019-12-25] MEDS ORDERED: NORCO-5 PO ONE (13:15)
--- NOTE | 2019-12-25 14:20 | EKG Report ---
Test Performed on : 12/25/2019 10:06:09 AM Test Reason : ED. No order in [place] Blood Pressure : / mmHG Vent. Rate : 088 BPM Atrial Rate : 091 BPM P-R Int : 128 ms QRS Dur : 074 ms QT Int : 366 ms P-R-T Axes : 012 023 056 degrees QTc Int : 442 ms Sinus rhythm. with occasional premature ventricular complexes. and premature atrial complexes. Anteroseptal infarct (cited on or before 29-MAR-2019) Abnormal ECG When compared with ECG of 07-OCT-2019 05:26, premature ventricular complexes. are now present Nonspecific T wave abnormality now evident in Lateral leads Unconfirmed Result
[2019-12-25] MEDS ORDERED: TYLENOL PO PRN (15:39)
[2019-12-25] MEDS ORDERED: ZOFRAN IV PRN (15:39)
[2019-12-25 15:40] LABS: URINE SOURCE CLEAN CATCH
--- NOTE | 2019-12-25 15:42 | Diag Imaging Result Doc PS360 ---
EXAM: CT THORAX W/O CONTRAST 12/25/2019 HISTORY: lung mass TECHNIQUE: This exam was performed using automated exposure control, adjustment of mA or kV according to patient size, and/or use of iterative reconstruction technique. COMMENT: The current study is compared with the previous PET/CT of 10/16/2019. There is a large pleural effusion on the left which may be partially loculated. The left upper lobe is largely atelectatic. This is presumably related to an endobronchial lesion consistent with the patient's history of known lung cancer. There is COPD. There is apical pleural fibrosis on the right posteriorly which is similar in appearance to the previous study. Compared to the PET/CT of 10/16/2019, the pleural fluid collection is larger but the atelectasis was present previously. The left upper lobe bronchus is apparently occluded. This was also the case previously. There is extensive calcification of the coronary arteries particularly the left anterior descending. There is no evidence of significant mediastinal adenopathy. The previous PET CT demonstrated increased FDG uptake in the left hilar region. There is a somewhat spiculated nodular opacity present in the anterior left lower lobe on image 57 which was not clearly demonstrated on the previous examination. This may be a metastasis. There is a pleural-based lesion present on image 70 in the left lower lobe which is not clearly demonstrable on the previous study. There is a subcentimeter nodule laterally on image 81 in the left lower lobe which is not clearly present on the previous study. The appearance of the right lung is generally unchanged since the previous study. The regional skeleton appears stable. IMPRESSION: Worsened left pleural effusion. Persistent atelectasis of the left upper lobe presumably due to endobronchial obstruction. New lesions in the left lower lobe which may be due to metastatic disease. Electronically signed by Sebas Byrne 12/25/2019 3:40 PM
[2019-12-25 15:44] LABS: BILIRUBIN URINE NEGATIVE (NEGATIVE); BLOOD URINE NEGATIVE (NEGATIVE); COLOR STRAW; GLUCOSE URINE NEGATIVE (NEGATIVE); KETONE URINE NEGATIVE (NEGATIVE); LEUKOCYTES URINE NEGATIVE (NEGATIVE); NITRITE URINE NEGATIVE (NEGATIVE); PROTEIN URINE NEGATIVE (NEGATIVE); SP GRAVITY URINE 1.008; TURBIDITY URINE CLEAR (CLEAR); UROBILINOGEN URINE NORMAL (NORMAL)
[2019-12-25 15:45] LABS: UR EPITHELIAL CELLS <10 /HPF (<10); URINE BACTERIA NEGATIVE /HPF; URINE RBC <10 /HPF (<10); URINE WBC <10 /HPF (<10)
[2019-12-25] MEDS ORDERED: NORCO-10 PO PRN (16:11)
[2019-12-25 18:09] LABS: CALCIUM 9.4 mg/dL (8.8-10.2); CREATININE 1.2 mg/dL (0.7-1.2); POTASSIUM 4.1 mmol/L (3.5-5.1); TOTAL BILIRUBIN 0.59 mg/dL (0.20-1.00); TOTAL PROTEIN 5.9 g/dL (6.3-8.3)
--- NOTE | 2019-12-25 18:11 | HISTORY AND PHYSICAL ---
CHIEF COMPLAINT: Shortness of breath. This is a 74-year-old male with history of non-small cell cancer and CAD who presents with breathing issues. He says he cannot catch his breath. It has been an issue over the last 3 days. In the last 3 months he has noticed pain over his legs, which he has he has had previously when he had blood clots in his legs. He is currently on anticoagulation with Xarelto. He has been coughing up some blood within the last 3 days. He has also had epistaxis that would not stop. He is getting chemotherapy. His last dose was about 5 days ago. He denies any aryan chest pain. He is still requiring a significant amount of oxygen, not quite sure what his baseline requirement is but he has improved since he came in. Last admission in September was for the bilateral PE, DVT. I think he was on oxygen at that time. Workup in the ER revealed hypoxia. He was afebrile. No white count. Somewhat anemic but not far off baseline. Really his labs are pretty unremarkable, however chest x-ray showed left pleural effusion. A CT confirmed a large loculated pleural effusion with what looks like an endobronchial obstruction in the left upper lobe. The patient admitted for acute respiratory failure, pleural effusion, possible postobstructive pneumonia. PAST MEDICAL HISTORY: 1. Non-small cell lung cancer. 2. Dyslipidemia. 3. Adrenal insufficiency possibly. 4. COPD. 5. Abdominal aortic aneurysm . 6. GERD. 7. BPH. PAST SURGICAL HISTORY: He has had abdominal aortic aneurysm repair, cataract repair, inguinal hernia. SOCIAL HISTORY: He is he has a 57 pack year history smoking. No alcohol. No drugs. FAMILY HISTORY: Mother CAD in her 80s, father Hodgkin lymphoma at 52. ALLERGIES: Shellfish, iodine fairly significant. REVIEW OF SYSTEMS: He has had subjective fevers, 30 pound weight loss, congestion, positive cough. No diarrhea fortunately, chronic hip pain, tremor, he has had some skin rashes where the Xarelto shots were given which presume is Lovenox, palpitations, orthopnea and cold intolerance. PHYSICAL EXAM: Blood pressure 110/77, heart rate 86, respiratory 13, temperature was 98 degrees, 99% saturations on 4.5 L. GENERAL: Well-developed male in no acute distress. HEENT: Head was normocephalic, atraumatic . Pupils equal, round, reactive to light. Extraocular movements were intact. Moist mucous membranes. NECK: Was supple. CARDIOVASCULAR: Was regular rate and rhythm. No murmurs, gallops, or rubs. PULMONARY: Was diminished throughout especially on the left side. No rhonchi. GI: Soft, nontender. Some distention, bowel sounds positive. NEURO: Nonfocal . MUSCULOSKELETAL: Was 4/5 in all 4 extremities. LABORATORY DATA: Really unremarkable. White count 8, hemoglobin and hematocrit 9 and 31 pretty much at baseline since September, platelets 196,000, INR is 1.5, pH 7.47, pCO2 53, PaO2 76, basic was normal. ProBNP is elevated at 2846, troponin of 78. Urine was negative. Chest CT showed pleural effusion, endobronchial lesion. ASSESSMENT: 1. This is a 74-year-old male with non-small cell cancer undergoing chemo presenting with acute respiratory failure. There is concern over heart failure associated with chemotherapy. We are not sure what his chemotherapy had been recently. Based on his CT findings there is a large pleural effusion which is not well described as far as it is loculated it may be a hemothorax, it may be parapneumonic, it may be malignant, it may be volume overload. I do think he needs a thoracentesis. We will pursue that when Pulmonary feels it is safe to. He took Xarelto. I think he took the Xarelto today so at least have to wait 24 hours so it is not going to happen tomorrow. Additionally has an endobronchial lesion which may be causing postobstruction. I will continue antibiotics, breathing treatments and he may need a bronchoscopy evaluation of that area to see if he needs to be opened or stented. We will get his primary oncologist involved Dr. Webber. 2. Coronary artery disease, hypertension and I do not feel he has got pulmonary edema at this point but we will repeat his echocardiogram, his ejection fraction was on the low end, he has gotten large amount of Lasix mostly out of concern over his proBNP being elevated which it has been elevated in the past as high as 7399, 3983 in July, in September 1743 so not quite clear at this point that he is in failure. I am reluctant to giving heavy diuretics because I just do not see interstitial edema and far be it that we should treat heart failure just based on the lab value when there is other issues concurrently. Now if his effusion is purely transudative then we probably do need to diurese him further. 3. Disposition pending clinical status. Will appreciate Dr. Allred for evaluation of pleural effusion and possible VATS, Nikita and Akbar. cc: Ke Cao MD
[2019-12-25 18:17] LABS: BASO# 0.02 X1000 (0.0-0.2); BASO% 0.3 % (0.0-0.8); EOS# 0.01 X1000 (0.0-0.7); EOS% 0.1 % (0.0-10.0); HEMATOCRIT 31.3 % (42.0-52.0); HEMOGLOBIN 9.2 g/dL (14.0-18.0); IMM GRAN# 0.03 X1000 (0.0-0.04); IMM GRAN% 0.4 % (0.0-0.5); LYMPH# 0.58 X1000 (1.2-3.4); LYMPH% 8.2 % (20.5-51.1); MCH 28.3 PG (27-31); MCHC 29.4 g/dL (33-37); MCV 96.3 FL (81-99); MONO# 0.24 X1000 (0.11-0.59); MONO% 3.4 % (1.7-9.3); MPV 11.2 FL (7.4-10.4); NEUT# 6.23 X1000 (1.4-6.5); NEUT% 87.6 % (42.2-75.2); PLT 209 X1000 (130-400); RBC 3.25 XMIL (4.7-6.1); RDW 18.2 % (11.5-14.5); WBC 7.11 X1000 (4.8-10.8)
[2019-12-25 18:40] LABS: LYMPHS 3 % (21-51); MONO 3 % (1-9); SEGS 93 % (42-75)
[2019-12-25 18:41] LABS: ANISOCYTOSIS 1+; LARGE PLATELETS OCCASIONAL; SCHISTOCYTES OCCASIONAL
[2019-12-25] MEDS: SYMBICORT 160/4.5 MICROGM INHALER INH PRN (20:00)
[2019-12-25] MEDS: MS CONTIN PO SCH (20:54)
[2019-12-25] MEDS: LIPITOR PO SCH (20:54)
[2019-12-25] MEDS: RESTORIL PO SCH (20:54)
[2019-12-25] MEDS: NEURONTIN PO SCH (20:54)
[2019-12-25] MEDS: CORTEF PO SCH (20:54)
[2019-12-26] MEDS: SYMBICORT 160/4.5 MICROGM INHALER INH PRN (08:59)
[2019-12-26] MEDS: MIRALAX PO SCH (10:03)
[2019-12-26] MEDS: PRILOSEC PO SCH (10:04)
[2019-12-26] MEDS: FLOMAX PO SCH (10:04)
[2019-12-26] MEDS: CORTEF PO SCH ×2 (10:04→20:39)
[2019-12-26] MEDS: MS CONTIN PO SCH ×2 (10:04→20:39)
[2019-12-26] MEDS: NEURONTIN PO SCH ×3 (10:04→20:39)
[2019-12-26] MEDS: LOPRESSOR PO SCH (10:05)
[2019-12-26] MEDS: LASIX PO SCH (10:05)
[2019-12-26] MEDS: MAG-OX PO SCH (10:06)
[2019-12-26] MEDS: DUONEB (A & A) INH SCH ×4 (12:06→23:21)
--- NOTE | 2019-12-26 20:37 | HEMO/ONC CONSULTATION ---
DATE: 12/26/2019 CONSULTATION REQUESTED BY: Hospitalist Service. REASON FOR CONSULT: Metastatic lung cancer, patient known. HISTORY OF PRESENT ILLNESS: Mr. Santana is a 74-year-old male who is known to us as we are currently treating him for metastatic lung cancer. He last had single agent Abraxane on December 20, 2019. He started to note increased shortness of breath yesterday as well as some hemoptysis. He presented to the emergency department and has had scans and labs. He is currently on Xarelto for bilateral PEs/DVT diagnosed back in September of 2019. He had a CT scan yesterday which confirmed a large loculated pleural effusion, as well as endobronchial obstruction in the left upper lobe. The patient reports that he is feeling better now that he is in the hospital and has received several breathing treatments and O2 support. PAST MEDICAL HISTORY: 1. COPD. 2. Coronary artery disease. 3. Cataract. 4. Hypertension. 5. Hyperlipidemia. 6. Adrenal insufficiency. 7. Metastatic non-small cell lung cancer. 8. Arthritis. 9. BPH. 10. CHF. 11. Abdominal aortic aneurysm. 12. Chronic kidney disease. PAST SURGICAL HISTORY: 1. Cataract removal. 2. ERCP. 3. Abdominal aortic aneurysm repair. 4. Hernia repair. 5. Coronary stent. 6. Port placement. FAMILY HISTORY: Positive for CVA, as well as Hodgkin lymphoma. REVIEW OF SYSTEMS: As per the HPI. Twelve-point review of systems has been completed and is negative otherwise. PHYSICAL EXAMINATION: Vital Signs: Temperature 97.5 degrees, heart rate 86, respirations 15, blood pressure 132/83, O2 saturation 92% on 5 L nasal cannula. General: This is a chronically ill-appearing male lying in hospital bed with his at bedside. HEENT: Head is normocephalic, atraumatic. Eyes: Pupils equal, round, reactive. Ears, nose, throat, neck, and mouth: Oral mucosa appears to be dry but is pink. Gross auditory acuity is intact. Cardiovascular: S1, S2 noted. No murmurs, gallops, rubs appreciated. Respiratory: Coarse breath sounds throughout. Decreased breath sounds on the left. Gastrointestinal: Abdomen is soft. Musculoskeletal: No obvious bony abnormalities. Extremities: He has edema bilateral lower extremities, pretibial, left equal to right. Neurologic: Patient is alert and oriented with no obvious focal motor deficits at this time. LABS AND STUDIES: White blood cells from yesterday were 7.11, hemoglobin 9.2, hematocrit 31.3, platelet count is 209,000. Chemistry profile was overall stable. ProBNP was 2,846. CT of the chest done without contrast compared to a PET scan from October 15, 2019 shows worsened left pleural effusion. Persistent atelectasis of the left upper lobe, presumably due to endobronchial obstruction. New lesions in the left lower lobe which may be due to metastatic disease. ASSESSMENT AND PLAN: 1. Metastatic non-small cell lung cancer, currently receiving single agent Abraxane with last dose on 12/20/2019. No treatment while the patient is in the hospital. We did discuss with him today that he continues have increased toxicities related to his chemotherapy. We talked about goals of care and his quality of life. We talked about considering discontinuing chemotherapy and trying to focus on comfort care. The patient reports that he has thought of these issues previously and is considering taking a chemotherapy break. We are going to have palliative care come and see the patient. We will continue to talk with the patient throughout his hospitalization. 2. Acute respiratory failure with pleural effusion and hemoptysis. They have consulted Dr. Shelton to evaluate the patient, as well as Dr. Allred. We will follow up on their recommendations. He continues on antibiotics as well as breathing treatments and O2 support. 3. Coronary artery disease. He is receiving Lasix now. We will continue to monitor. Continue management per the primary team. 4. Disposition. Again, we are going to have palliative care come talk with the patient. We will continue to talk to him about goals of care and continue to support the patient. Thank you for consulting us on Mr. Santana while he is here at [facility]. We will continue to follow along and adjust our treatment plan per his hospital course. Dictated by REGLA Paige for Marisol Webber MD cc: Marisol Webber MD I have seen and examined the patient and the above note reflects my history, physical exam, assessment and plan. Marisol TUCKER
--- NOTE | 2019-12-26 20:37 | PROGRESS NOTE ---
DATE: 12/26/2019 SUBJECTIVE: Patient has no major complaints. OBJECTIVE: Blood pressure is 97/64, heart rate of 97, respiratory rate of 20, temperature of 97.7 degrees, 96% on 5 L.Cardiovascular: Regular rate and rhythm. GI: Soft, nontender, nondistended. Bowel sounds are positive. Pulmonary: Breath sounds were diminished at the bases including on the left side. I think his effusion is on the left. 1. Pneumonia with parapneumonic effusion versus possibly malignant effusion. We will continue empiric antibiotics. We have held anticoagulation. Pulmonary to see patient. I have gone ahead and ordered the thoracentesis for tomorrow unless Dr. Shelton feels a thoracostomy is a better test. He will be off Xarelto at that point for the 2nd day. I am suspicious this is malignant. It sounds like he has failed several treatments. He is no longer going to participate in chemo after a long discussion with Dr. Webber in which case we probably do not need to be extremely aggressive but I think a thoracentesis to figure out what the fluid is is reasonable and/or possibly a PleurX. I think thorancentesis or thoracoscopy is probably less important considering the fact that we are looking at palliation at this point. 2. Bilateral pulmonary embolisms. I have held his Xarelto and he has got deep vein thrombosis just because he may need procedures but those will need to be resumed fairly quickly. 3. Adrenal insufficiency appears to be stable. Overall prognosis is poor. I think end of life discussions are reasonable in this setting and that Dr. Webber has already ordered a palliative care consult. Appreciate fitness sales consultant's help. cc: Ke Cao MD [facility]
--- NOTE | 2019-12-26 20:37 | GENERAL SURGERY CONSULTATION ---
DATE: 12/26/2019 HISTORY OF PRESENT ILLNESS: A 74-year-old, gentleman, with known non-small cell carcinoma of the left upper lung. He has been treated really ongoing for the last 2 to 3 years. He has had radiation and is now undergoing chemotherapy. He was hospitalized recently with venous thrombosis and apparent pulmonary embolism. Now, he is admitted with shortness of breath and a large left pleural effusion. His other medical problems include dyslipidemia, COPD, history of abdominal aortic aneurysm, gastroesophageal reflux, BPH, and adrenal insufficiency. PAST SURGICAL HISTORY: Previous surgeries include AAA repair, cataract repair, inguinal hernia repair. SOCIAL HISTORY: He is a smoker. Denies alcohol or drug use. FAMILY HISTORY: Pertinent for lymphoma and coronary disease. REVIEW OF SYSTEMS: As noted above in the history of present illness. ALLERGIES: Shellfish and iodine. PHYSICAL EXAMINATION: Vital Signs: He is afebrile. Heart rate 45, blood pressure 110/56. Respiratory: He has obviously diminished breath sounds on the left, good breath sounds on the right. Heart: Regular rate and rhythm. Abdomen: Soft and nontender. Neurologic: He is awake and alert. LABORATORY AND DIAGNOSTIC DATA: White count is 7000, hemoglobin 9.2, hematocrit 31. PT 18.7, INR 1.5. CT shows a large left pleural effusion. ASSESSMENT/PLAN: He is scheduled for a thoracentesis tomorrow. Xarelto has been stopped. The necessity for any video-assisted thoracic surgery still remains uncertain. We will await findings from the thoracentesis. cc: Gordon Coronel MD
[2019-12-26] MEDS: LIPITOR PO SCH (20:39)
[2019-12-26] MEDS: RESTORIL PO SCH (21:19)
--- NOTE | 2019-12-26 22:54 | PULMONOLOGY CONSULTATION ---
DATE: 12/26/2019 REQUESTING PHYSICIAN: Dr. Cao. REASON FOR CONSULTATION: Lung cancer with minor hemoptysis and left-sided pleural effusion. HISTORY OF PRESENT ILLNESS: Mr. Santana is a 74-year-old white male with lung cancer (at least stage III; oncology note indicates stage IV), who has been on palliative chemotherapy since April 2018. His course has been complicated by new-onset vocal cord dysfunction around last , and bilateral pulmonary emboli with DVTs last September as well. The patient reports complications of neuropathy associated with his chemotherapy, with extreme weakness in his legs and arms, and significant burning. He reports he is getting very few good days after chemotherapy. The patient presented to the emergency room with epistaxis, possible hemoptysis, and increasing shortness of breath. CT scan of the thorax was obtained and reveals an increasing left-sided pleural effusion with component of loculation anteriorly, along with left hilar mass with airway obstruction to the left upper lobe with probable compromise of the lingula and the left lower lobe. Surgical consultation has been obtained for possible thoracoscopy, and thoracentesis has been scheduled for tomorrow morning. PAST MEDICAL HISTORY: 1. Lung cancer as outlined above. 2. Chronic obstructive pulmonary disease. 3. Bilateral pulmonary emboli. 4. Abdominal aortic aneurysm. 5. Gastroesophageal reflux disease. 6. BPH. 7. Adrenal insufficiency. SOCIAL HISTORY: Extensive tobacco history. Alcohol use not queried. FAMILY HISTORY: Positive for Hodgkin disease and strokes. REVIEW OF SYSTEMS: Notable for cough with bloody secretions and recent epistaxis. He has generalized weakness. He reports he is comfortable at rest, but develops dyspnea with any exertion. PHYSICAL EXAMINATION: Physical exam reveals a chronically ill-appearing male with a BMI of 22, resting comfortably at rest. Blood pressure 107/61, heart rate 90, respiratory rate 18, oxygen saturation 93% on 5 L per nasal cannula.HEENT: Pupils are equal and reactive. Oropharynx appears clear. Neck is supple. Chest reveals diminished breath sounds, left base. Cardiac exam: S1, S2. Abdomen is soft. Extremities are without edema. IMPRESSION: A 74-year-old with: 1. Lung cancer with progression. 2. Hemoptysis. 3. Progressive left-sided pleural effusion. 4. Vocal cord paralysis with hoarseness. 5. 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 DISCUSSION: A 74-year-old with problems outlined above. His quality of life continues to decline. He does have a pleural effusion which has increased from the last PET scan. He may or may not benefit from thoracentesis. He has significant airway obstruction and the pleural effusion in part may be related to atelectasis. He does not have shift of the hemithorax. I do think it is reasonable to perform a thoracentesis to see if this helps relieve his air hunger. If he gets significant benefit from the thoracentesis, then a PleurX catheter may provide longer-term benefit. With his current performance status, progressive lung cancer, hypoxemic respiratory failure, vocal cord dysfunction, severe neuropathy and limited lifespan, I do not believe he would tolerate a thoracoscopy. RECOMMENDATIONS: 1. Agree with plans for thoracentesis to see if it has a palliative effect. 2. Consider PleurX catheter if it has a significant palliative affect. 3. Agree with palliative care/hospice discussions as outlined by Oncology. cc: Julien Shelton MD
[2019-12-27] MEDS: DUONEB (A & A) INH SCH ×6 (03:42→22:55)
[2019-12-27] MEDS: MAG-OX PO SCH (07:59)
[2019-12-27] MEDS: NEURONTIN PO SCH ×3 (07:59→20:17)
[2019-12-27] MEDS: FLOMAX PO SCH (07:59)
[2019-12-27] MEDS: CORTEF PO SCH ×2 (07:59→20:16)
[2019-12-27] MEDS: LOPRESSOR PO SCH (07:59)
[2019-12-27] MEDS: MS CONTIN PO SCH ×2 (08:00→20:16)
[2019-12-27] MEDS: PRILOSEC PO SCH (08:00)
[2019-12-27] MEDS: LASIX PO SCH (08:04)
[2019-12-27] MEDS: MIRALAX PO SCH (08:04)
[2019-12-27 08:38] LABS: ALB/GLOB RATIO 0.9; ALBUMIN 2.9 g/dL (3.5-5.0); CALCIUM 9.4 mg/dL (8.8-10.2); CREATININE 1.7 mg/dL (0.7-1.2); POTASSIUM 3.7 mmol/L (3.5-5.1); TOTAL BILIRUBIN 0.23 mg/dL (0.20-1.00)
[2019-12-27 08:51] LABS: BASO# 0.02 X1000 (0.0-0.2); BASO% 0.3 % (0.0-0.8); EOS# 0.06 X1000 (0.0-0.7); EOS% 0.9 % (0.0-10.0); HEMATOCRIT 30.3 % (42.0-52.0); HEMOGLOBIN 8.6 g/dL (14.0-18.0); IMM GRAN# 0.04 X1000 (0.0-0.04); IMM GRAN% 0.6 % (0.0-0.5); LYMPH# 0.96 X1000 (1.2-3.4); MCH 27.5 PG (27-31); MCHC 28.4 g/dL (33-37); MCV 96.8 FL (81-99); MONO% 10.9 % (1.7-9.3); MPV 10.7 FL (7.4-10.4); NEUT# 4.62 X1000 (1.4-6.5); NEUT% 72.3 % (42.2-75.2); PLT 237 X1000 (130-400); RBC 3.13 XMIL (4.7-6.1); RDW 18.7 % (11.5-14.5)
--- NOTE | 2019-12-27 09:09 | Diag Imaging Result Doc PS360 ---
EXAM: CHEST-2 VIEWS HISTORY: POST THORA TECHNIQUE: Inspiratory and expiratory chest, two views COMPARISON: 12/25/2019 FINDINGS: Interval decrease in the left pleural effusion following thoracentesis. No postprocedural pneumothorax. Left upper lobe mass/atelectasis remain. No cardiomegaly. There is a right jugular portacatheter. IMPRESSION: No postprocedural pneumothorax. Electronically signed by Josh Kenney 12/27/2019 9:06 AM
--- NOTE | 2019-12-27 09:20 | Diag Imaging Result Doc PS360 ---
EXAM: US THORACENTESIS W/IMAGE GUIDE HISTORY: pleural effusion TECHNIQUE: Ultrasound-guided thoracentesis COMPARISON: None. FINDINGS: Prior to the procedure I discussed the risk and benefits with the patient. Primary risks include bleeding, infection, and pneumothorax. Questions were answered. Consent was given. The permit was signed. Ultrasound was used to localize the left pleural fluid collection. This area was cleaned and draped in the normal fashion. Lidocaine was used as a local anesthetic. Needle and catheter were advanced into the fluid collection on the first attempt without difficulty. The needle was withdrawn. The catheter was hooked to hand suction. Approximately 1300 cc were withdrawn without difficulty. The catheter was then withdrawn. No immediate postprocedural complications. Fluid sent to laboratory for analysis. IMPRESSION: Ultrasound-guided thoracentesis with no immediate complication. Electronically signed by Josh Kenney 12/27/2019 9:18 AM
--- NOTE | 2019-12-27 11:16 | PROGRESS NOTE ---
DATE: 12/27/2019 SUBJECTIVE: Patient reports feeling much better after we removed 1.3 L of pleural fluid. He is complaining of some pain when he breathes in, but no fever, no chills. OBJECTIVE: Vital Signs: Temperature 97.7, heart rate 92, respiratory rate 15, blood pressure 120/72, O2 saturation 95%. On 5 L nasal cannula. This is a chronically ill-appearing, 74-year- old male, lying in bed, in no acute distress. Cardiovascular: S1, S2 heard. No murmurs, gallops, or rubs. Regular rate and rhythm. Respiratory: Decreased sounds in both pulmonary bases mostly noted in the left base. The patient is not using any accessory muscles or having work of breathing. Abdomen: Soft. Nontender to palpation. Bowel sounds present. No organomegaly. Extremities: No clubbing, cyanosis, or edema. Peripheral pulses present in both legs. Neurological: Patient is alert and oriented x3. Moves 4 extremities. LABORATORY DATA: Reviewed with normal white cell count. BMP reveals creatinine 1.7. ASSESSMENT AND PLAN: 1. Pneumonia with parapneumonic effusion versus possibly malignant pleural effusion. The patient apparently was on empiric antibiotics; apparently, those have been discontinued. His white cell count is normal. He is not spiking any fever so I think at this point we will continue to hold it. We have held anticoagulation as well. Paracentesis for malignant pleural effusion has been done and removed 1.3 L of pleural fluid. According to Dr. Webber from Oncology, we probably do not need to be extremely aggressive. I do not think that he is still a candidate for continuing to receive chemotherapy. The patient has been recommended to think about hospice according to oncology team but patient has not talk about it yet. Palliative care team has been consulted. We will see what they have to say tomorrow. 2. Bilateral pulmonary embolism. Patient has been on Xarelto which was stopped for thoracentesis but we are going to restart it today. cc: Jonas Samuel MD
[2019-12-27 12:33] LABS: AMYLASE BODY FLUID 55 U/L; GLUCOSE BODY FLUID 143 mg/dL; LDH BODY FLUID 144 U/L; TOTAL PROT BODY FLUID 3.6 g/dL
--- NOTE | 2019-12-27 13:10 | Diag Imaging Result Doc PS360 ---
EXAM: CHEST-2 VIEWS INDICATION: inspiratory expiratory TECHNIQUE: 2 views COMPARISON: 12/27/2019 FINDINGS: There is still no evidence of pneumothorax status post left thoracentesis. Otherwise, the chest is essentially stable. IMPRESSION: No evidence of pneumothorax status post left thoracentesis. Electronically signed by Yosi Cuadra 12/27/2019 1:08 PM
[2019-12-27] MEDS ORDERED: AYR NASAL SPRAY NAS PRN (13:34)
[2019-12-27 15:00] LABS: BODY FLUID SOURCE PLEURAL FLUID; SPECIMEN PLEURAL FLUID
[2019-12-27 15:02] LABS: PH BODY FLUID 8
[2019-12-27 15:10] LABS: WBC BF 610 /cumm
[2019-12-27 15:12] LABS: MONOS 40 %; POLYS 60 %
[2019-12-27] MEDS: LIPITOR PO SCH (20:16)
--- NOTE | 2019-12-27 21:45 | PULMONOLOGY PROGRESS NOTE ---
DATE: 12/27/2019 SUBJECTIVE: The patient is awake, alert, and conversant. He had 1300 mL withdrawn today from his left chest. OBJECTIVE: HEENT: Pupils are equal and reactive. Oropharynx appears clear. Neck: Supple. Chest: Diminished breath sounds, left base, but improved from yesterday. Cardiac: S1, S2. Abdomen: Soft. Extremities: Without edema. LABORATORIES: Pleural fluid is exudative in character, with a total protein of 3.6. White blood count is only 610, with a normal pH. IMPRESSION: A 74-year-old with: 1. Lung cancer. 2. Left-sided pleural effusion. 3. Vocal cord paralysis. 4. Severe neuropathy. PLAN: 1. Follow up chest x-ray tomorrow. 2. Consider discharge home if pleural fluid does not rapidly recur. If it does rapidly reoccur, would consider a PleurX catheter. 3. Palliative care/hospice anticipated at the time of discharge, given his difficulty with chemotherapy. cc: Julien Shelton MD
[2019-12-27] MEDS: SYMBICORT 160/4.5 MICROGM INHALER INH PRN (22:57)
[2019-12-27] MEDS: RESTORIL PO SCH (22:58)
[2019-12-28] MEDS: DUONEB (A & A) INH SCH ×3 (04:55→12:06)
--- NOTE | 2019-12-28 06:27 | Diag Imaging Result Doc PS360 ---
CHEST-PORTABLE - 12/28/2019 INDICATION: abnormal exam COMPARISON: 12/27/2019 FINDINGS: Stable right chest port. Stable dense opacification at the left apex. There is some worsening hazy infiltrate throughout the remaining left lung. The right lung remains clear of infiltrate. Heart size is top normal. IMPRESSION: Hazy infiltrate throughout the left lung concerning for pneumonia or aspiration. Electronically signed by Hansel Renee 12/28/2019 6:25 AM
[2019-12-28 08:42] VITALS: BP 117/66
[2019-12-28] MEDS: CORTEF PO SCH (08:51)
[2019-12-28] MEDS: LASIX PO SCH (08:51)
[2019-12-28] MEDS: PRILOSEC PO SCH (08:51)
[2019-12-28] MEDS: FLOMAX PO SCH (08:51)
[2019-12-28] MEDS: NEURONTIN PO SCH (08:51)
[2019-12-28] MEDS: MAG-OX PO SCH (08:51)
[2019-12-28] MEDS: LOPRESSOR PO SCH (08:51)
[2019-12-28] MEDS: MIRALAX PO SCH (08:52)
[2019-12-28] MEDS: MS CONTIN PO SCH (08:52)
--- NOTE | 2019-12-29 00:02 | DISCHARGE SUMMARY ---
ADMISSION DATE: 12/25/2019 DISCHARGE DATE: 12/28/2019 PRIMARY CARE PROVIDER: Ez Dave. CONSULTATION: Marisol Webber with Hematology, Dr. Gordon Coronel with General Surgery, Dr. Julien Shelton with Pulmonology. PROCEDURES: 1. Chest CT, worsening pleural effusion, persistent atelectasis at the left upper lobe presumably due to endobronchial obstruction. New lesion on the left lower lobe which may be due to metastatic disease. 2. Ultrasound-guided thoracentesis where 1300 mL were withdrawn without difficulty. DISCHARGE DIAGNOSIS: 1. Pneumonia with parapneumonic effusion versus possible malignant pleural effusion. The patient has been on empiric antibiotics which has now been discontinued. His like cell count was normal, no fevers. He did have a thoracentesis for 1.3 L of pleural fluid was removed. He is being followed by his oncologist, Dr. Marisol Webber. They did discuss their options, with stopping chemotherapy related to toxicities, as well as having palliative care come and speak with the patient. I believe they are still weighing out their options. He is currently going to be discharged home with his regular home help and will continue discussions outpatient. If his pleural effusion does rapidly reoccur, Dr. Shelton would consider a PleurX catheter and also recommends palliative and/or hospice care. 2. Vocal cord paralysis, aware. 3. Severe neuropathy. 4. Bilateral pulmonary embolus. The patient will continue on Xarelto. HOSPITAL COURSE: Briefly, Mr. 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 He had been treated ongoing for the last 2 to [address] Marisol Webber was radiation and now chemotherapy. He had recently been hospitalized for venous thrombosis and PE and was admitted for shortness of breath and found to have a large left pleural effusion for which he underwent a thoracentesis and they removed 1300 L of fluid. It was discussed with his oncologist, as well as Pulmonology, stopping chemotherapy given the toxicity side effects and going home with hospice. Ongoing talks with Palliative Care. Pulmonology does recommend, if the pleural effusion does rapidly recur, considered placing a PleurX catheter. He was taken off all antibiotics and will be discharged home today with his home health. VITAL SIGNS AT TIME OF DISCHARGE: The temperature was 97.5, heart rate 76, respirations 18, blood pressure 117/66, blood pressure is 100%. DISCHARGE DIET: Healthy heart. DISCHARGE MEDICATIONS: 1. Lipitor 20 mg p.o. at bedtime. 2. Restoril 30 mg p.o. at bedtime. 3. Cortef 2 tabs p.o. as directed. 4. Gabapentin 1 tablet p.o. t.i.d. 5. Anthony 10/325, 1 tablet p.o. q.6 hours p.r.n. 6. Lopressor 0.5 tab p.o. daily. 7. Magnesium 400 mg p.o. q.a.m. 8. Morphine sulfate ER 1 tablet p.o. q.12 hours. 9. Valcyte 40 mg p.o. daily. 10. Symbicort 1 inch inhaled b.i.d. 11. Flomax 1 tablet p.o. daily. 12. Inderal 20 mg p.o. daily. 13. Lasix 40 mg p.o. daily. 14. Levofloxacin 700 mg p.o. daily. 15. MiraLAX 17 g p.o. daily. FOLLOWUP: Mr. Santana is being discharged back home with his home health care services with [place]. He is to follow up with his oncologist, Dr. Marisol Webber, on the at 8:30 a.m. He can return to the ED or call 911 for any worsening symptoms. Dictated by LIOR Wilkinson for Jonas Samuel MD Addendum: Patient seen and examined by myself. Agree with LIOR note. It reflects my assessment and plan. Patient is being discharged in stable condition. Will be seen by Dr. Webber in the office in a week. cc: MD Marisol Bonilla MD [facility]
== END 2019-12-28 14:32 | disposition home health service (06) | DRG 189 ==
LOC: SUPCPDRO → ED 09:59 → SUATTDRO 16:13 → EDIPHOLD 16:13 → 3N 18:41
PROVIDERS: ATTEND Internal Medicine